=== PATIENT | female | born 1950 | race Caucasian/White ===

== ENCOUNTER → 2016-04-10 | Outpatient (CLI) | payer MEDICARE, OTHER | LOC: LAB.O 12:05 | PROVIDERS: ATTEND Nurse Practitioner Family | DX: Z86.711 Personal history of pulmonary embolism (principal) ==

== ENCOUNTER → 2016-05-01 | Outpatient (CLI) | payer MEDICARE, OTHER | END | disposition home or self-care (01) | LOC: LAB.O 14:33 | PROVIDERS: ATTEND Nurse Practitioner Family | DX: Z86.711 Personal history of pulmonary embolism (principal) ==

== ENCOUNTER → 2016-05-08 | Outpatient (CLI) | payer MEDICARE, OTHER | END | disposition home or self-care (01) | LOC: LAB.O 09:05 | PROVIDERS: ATTEND Nurse Practitioner Family | DX: Z86.711 Personal history of pulmonary embolism (principal) ==

== ENCOUNTER 2016-05-30 13:02 | Observation (INO) | payer MEDICARE, OTHER ==
[2016-05-30] MEDS ORDERED: SODIUM CHLORIDE 0.9% 1000ML 1,000 ML IVS ONE (13:35)
--- NOTE | 2016-05-30 13:57 | ED.PDOC ---
History of Present Illness - General Chief Complaint: Trauma Stated Complaint: fall x1 day ago Time Seen by Provider: 05/30/16 13:34 Source: patient, RN notes reviewed, Vital Signs reviewed, family - Exam Limitations: no limitations - History of Present Illness Initial Comments: Patient is a 65 y/o female who fell yesterday when she was putting up her ironing board. She hit her head. She woke early this AM with a severe headache , and she has had about 5 episodes of vomiting since 0200. Patient is currently on coumadin for a history of PE. She is very anxious. Her states that her speech has been not at clear as usual. Patient has had some visual blurriness. She has a history of back problems which is why she has been falling recently. She does use her walker at home. Timing/Duration: 24 hours, getting worse Severity: severe Improving Factors: nothing Worsening Factors: nothing Associated Symptoms: headaches, nausea/vomiting, weakness Allergies/Adverse Reactions: Allergies Ketorolac Tromethamine [From Toradol] Allergy (Verified 05/30/16 13:28) Hives shortness Penicillin G Allergy (Verified 05/30/16 13:28) Other welps Ondansetron [From Zofran] Adverse Reaction (Verified 05/30/16 13:28) Other Pt claims this causes her to "blister" Home Medications: Ambulatory Orders Alprazolam [Niravam] 2 mg PO QID PRN 07/16/15 Aspirin [Aspirin EC] 81 mg PO DAILY 07/16/15 Pantoprazole Sodium [Protonix] 40 mg PO DAILY 07/16/15 Warfarin Sodium 2.5 mg PO .TU,W,TH,SA,NINA 11/09/15 Warfarin Sodium 5 mg PO .M,F 11/09/15 Zolpidem Tartrate [Ambien] 10 mg PO BEDTIME 11/21/15 Buprenorphine [Butrans] 10 mcg TD WKLY 05/30/16 Haloperidol 0.5 mg PO BEDTIME PRN 05/30/16 Lisinopril 10 mg PO BEDTIME 05/30/16 tiZANidine [Zanaflex] 4 mg PO TID PRN 05/30/16 Review of Systems - Review of Systems Constitutional: States: weakness. Denies: chills, fever EENTM: States: blurred vision, nose congestion, throat pain Respiratory: States: no symptoms reported Cardiology: States: no symptoms reported. Denies: chest pain Gastrointestinal/Abdominal: States: abdominal pain, nausea, vomiting Genitourinary: States: no symptoms reported Musculoskeletal: States: back pain, joint pain, muscle pain, neck pain Skin: States: other - bruising Neurological: States: anxiety, headache, tingling, weakness Endocrine: States: no symptoms reported Hematologic/Lymphatic: States: blood clots, easy bleeding, easy bruising All other Systems: Reviewed and Negative Past Medical History (General) - Patient Medical History Hx Seizures: No Hx Stroke: No Hx Dementia: No Hx Asthma: No Hx of COPD: No Hx Cardiac Disorders: Yes - pacemaker Hx Congestive Heart Failure: No Hx Pacemaker: No Hx Hypertension: Yes Hx Thyroid Disease: No Hx Diabetes: No Hx Gastroesophageal Reflux: Yes Hx Renal Disease: No Hx Cancer: No Hx of HIV: No Hx Hepatitis C: No Hx MRSA: No MRSA Source:: Wound Surgical History: cholecystectomy, Hysterectomy - Vaccination History Hx Tetanus, Diphtheria Vaccination: No Hx Influenza Vaccination: No Hx Pneumococcal Vaccination: No - Social History Hx Tobacco Use: No Hx Chewing Tobacco Use: No Hx Alcohol Use: No Hx Substance Use: No Hx Substance Use Treatment: No Hx Depression: No Hx Physical Abuse: No Hx Emotional Abuse: No Hx Suspected Abuse: No - Activities of Daily Living Hospice Agency (if applicable):: None - Female History Patient is a Female of Child Bearing Age (10 -59 yrs old): No Patient : No Family Medical History - Family History Father Living Status: Cause of : copd Mother Living Status: Cause of : colon ca Son Name: mother Living Status: Age at (years of age): 54 Cause of : colon cancer Hx Family Asthma: No Hx Family Congestive Heart Failure: No Hx Family Hypertension: Yes Hx Family Stroke: Yes Hx Cardiac Disease: No Hx Family Diabetes: No Hx Family Cancer: Yes Hx Family;Other: Crohn's Physical Exam - Physical Exam General Appearance: Anxious, Obvious distress Eye Exam: bilateral normal Ears, Nose, Throat: hearing grossly normal, normal ENT inspection Neck: limited range of motion, tender lateral Respiratory: lungs clear, normal breath sounds, no respiratory distress, no accessory muscle use Cardiovascular/Chest: regular rate, rhythm, no edema, no gallop, no murmur Gastrointestinal/Abdominal: normal bowel sounds, soft, no organomegaly, tenderness - generalized Extremity: normal inspection, no pedal edema, no calf tenderness Neurologic: 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 II-XII nml as tested, alert, oriented x 3, depressed affect Skin Exam: warm/dry, other - ecchymosis to left arm Progress - Results/Orders Results/Orders: 05/30/16 05/30/16 05/30/16 13:04 13:30 14:46 Temperature 99.0 F Pulse Rate [ 92 H 78 pulse ox] Respiratory 20 20 20 Rate Blood Pressure 178/107 206/117 [Right Arm] O2 Sat by Pulse 96 99 Oximetry 05/30/16 13:34 URINALYSIS Stat Laboratory Results WBC 8.3 K/mm3 (4.8-10.8) 05/30/16 13:55 RBC 4.81 M/mm3 (4.20-5.40) 05/30/16 13:55 Hgb 10.1 gm/dL (12.0-16.0) L 05/30/16 13:55 Hct 32.9 % (36.0-47.0) L 05/30/16 13:55 MCV 68.4 fl (81.0-99.0) L 05/30/16 13:55 MCH 20.9 pg (27.0-31.0) L 05/30/16 13:55 MCHC 30.8 g/dL (33.0-37.0) L 05/30/16 13:55 RDW 20.1 % (11.5-14.5) H 05/30/16 13:55 Plt Count 279 K/mm3 (130-400) 05/30/16 13:55 MPV 7.7 fl (7.40-10.4) 05/30/16 13:55 Absolute Neuts (auto) 4.30 K/uL (1.8-6.8) 05/30/16 13:55 Absolute Lymphs (auto) 2.90 K/uL (1.0-3.4) 05/30/16 13:55 Absolute Monos (auto) 0.70 K/uL (0.2-0.8) 05/30/16 13:55 Absolute Eos (auto) 0.30 K/uL (0.0-0.4) 05/30/16 13:55 Absolute Basos (auto) 0.10 K/uL (0.0-0.1) 05/30/16 13:55 Neutrophils % 51.9 % (42.0-78.0) 05/30/16 13:55 Lymphocytes % 35.0 % (20.0-50.0) 05/30/16 13:55 Monocytes % 8.7 % (2.0-9.0) 05/30/16 13:55 Eosinophils % 3.1 % (1.0-5.0) 05/30/16 13:55 Basophils % 1.3 % (0.0-2.0) 05/30/16 13:55 RBC Morphology 2+aniso 2+hypochromia 2+target cells 3+microcytosis 05/30/16 13:55 RBC Morphology 2+aniso 2+hypochromia 2+target cells 3+microcytosis 05/30/16 13:55 RBC Morphology 2+aniso 2+hypochromia 2+target cells 3+microcytosis 05/30/16 13:55 RBC Morphology 2+aniso 2+hypochromia 2+target cells 3+microcytosis 05/30/16 13:55 PT 48.8 SECONDS (9.4-12.5) H* 05/30/16 13:55 INR 4.380 H* 05/30/16 13:55 PTT (SP) 62.6 SECONDS (25.1-36.5) H 05/30/16 13:55 Sodium 140 mmol/L (135-145) 05/30/16 13:55 Potassium 3.8 mmol/L (3.6-5.0) 05/30/16 13:55 Chloride 106 mmol/L (101-111) 05/30/16 13:55 Carbon Dioxide 26 mmol/L (21-31) 05/30/16 13:55 Anion Gap 11.8 (12-18) L 05/30/16 13:55 BUN 9 mg/dL (7-18) 05/30/16 13:55 Creatinine 0.62 mg/dL (0.6-1.3) 05/30/16 13:55 BUN/Creatinine Ratio 14.5 (10-20) 05/30/16 13:55 Random Glucose 107 mg/dL (70-105) H 05/30/16 13:55 Serum Osmolality 278.6 mOsm/L (275-295) 05/30/16 13:55 Calcium 8.5 mg/dL (8.4-10.2) 05/30/16 13:55 Total Bilirubin 0.6 mg/dL (0.2-1.0) 05/30/16 13:55 AST 43 IU/L (10-42) H 05/30/16 13:55 ALT 17 IU/L (10-60) 05/30/16 13:55 Alkaline Phosphatase 114 IU/L (42-121) 05/30/16 13:55 Serum Total Protein 7.7 gm/dL (6.4-8.2) 05/30/16 13:55 Albumin 3.9 g/dl (3.2-5.5) 05/30/16 13:55 Globulin 3.8 gm/dL (2.3-3.5) H 05/30/16 13:55 Albumin/Globulin Ratio 1.0 (1.1-1.9) L 05/30/16 13:55 - EKG/XRAY/CT CT: Head: No acute process CT Ordered: Yes CT Interpretation Call Back: No - Report sent Departure - Departure Clinical Impression: Anticoagulant long-term use, Elevated INR, HTN (hypertension), benign, Elevated blood pressure Closed head injury with concussion Qualifiers: Encounter type: initial encounter Loss of consciousness presence/duration: without LOC Qualifier Code: (S06.0X0A) Concussion without loss of consciousness , initial encounter Fall at home Qualifiers: Encounter type: initial encounter Qualifier Code: (W19.XXXA) Unspecified fall, initial encounter Headache Qualifiers: Headache type: post-traumatic Headache chronicity pattern: acute headache Nausea & vomiting Qualifiers: Vomiting type: unspecified Vomiting Intractability: non-intractable Qualifier Code: (R11.2) Nausea with vomiting, unspecified Disposition: Admit Patient Condition: Good Referrals: JANET GAMEZ IV, [facility] [Primary Care Provider] - 1-2 Weeks Home Medications: Ambulatory Orders Alprazolam [Niravam] 2 mg PO QID PRN 07/16/15 Aspirin [Aspirin EC] 81 mg PO DAILY 07/16/15 Pantoprazole Sodium [Protonix] 40 mg PO DAILY 07/16/15 Warfarin Sodium 2.5 mg PO .TU,W,TH,SA,NINA 11/09/15 Warfarin Sodium 5 mg PO .M,F 11/09/15 Zolpidem Tartrate [Ambien] 10 mg PO BEDTIME 11/21/15 Buprenorphine [Butrans] 10 mcg TD WKLY 05/30/16 Haloperidol 0.5 mg PO BEDTIME PRN 05/30/16 Lisinopril 10 mg PO BEDTIME 05/30/16 tiZANidine [Zanaflex] 4 mg PO TID PRN 05/30/16 Decision To Admit - Decistion To Admit Decision to Admit Reason: Accidental Injury Decision to Admit Date: 05/30/16 Decision to Admit Time: 15:30
--- NOTE | 2016-05-30 14:09 | CT ---
Study: CT of the Head. Indication: fall Technique: Axial CT images of the head were acquired without intravenous contrast. Comparison: None. Findings: No CT evidence of acute ischemia, acute hemorrhage, mass, mass effect, midline shift, or extra-axial fluid collection. Ventricles are normal in configuration without hydrocephalus. Brain parenchyma demonstrates a normal appearance for patient age. Paranasal sinuses are adequately aerated. Mastoid air cells are adequately aerated. Osseous structures and soft tissues are unremarkable. Impression: 1. No CT evidence of acute intracranial abnormality. Electronically signed by: Cas Man MD 05/30/2016 2:08 PM CDT
[2016-05-30] MEDS ORDERED: PROMETHAZINE HCL INJ 12.5 MG in SODIUM CHLORIDE 0.9% 50ML 50 ML IVPB ONE (14:22)
[2016-05-30] MEDS ORDERED: MORPHINE SULFATE INJ 10 MG/ML VIAL IV ONE ×3 (14:23→18:07)
[2016-05-30] MEDS ORDERED: PROMETHAZINE HCL 25 MG TAB PO ONE (14:26)
[2016-05-30] MEDS ORDERED: BUTORPHANOL TARTRATE 2 MG/ML VIAL IV ONE (15:35)
--- NOTE | 2016-05-30 16:51 | HP ---
SUPERVISING PHYSICIAN: Serafin Merchant M.D. CHIEF COMPLAINT: Trauma to the head. HISTORY OF PRESENT ILLNESS: This is a 65 year-old female patient who was at home yesterday and she fell after she was putting up her ironing board. She hit the left side of the posterior part of her head. Her was at the [facility] in [place] and she was home alone. When he came home from his appointment, he said that she was in quite a bit of pain but she refused to go to the hospital at that time. There was a question as to whether she lost consciousness or not. Actually one time she said she did lose consciousness and then she said she did not. She went to bed last night and woke up this morning about 3:00 AM. She was vomiting and had a headache. Then later this morning she actually decided that she would come to the Emergency Room because the vomiting continued as well as the headache. It is to be noted that she is on chronic pain medicines and she is on Butrans transdermal patch. She usually changes that on Tuesdays. It was not changed this day due to her being out of town as well as her condition after her fall. In the Emergency Room, a CT of her head was done and the CT showed no CT evidence of acute intracranial abnormality. Her lab had a WBC of 8.3, hemoglobin 10.1, hematocrit 32.9, platelets 279. PT 48.8 with INR 4.38, PTT 62.6. Sodium 140, potassium 3.8, chloride 106, carbon dioxide 26, anion gap 11.8, BUN 9, creatinine 0.62, glucose 107. AST 43. Urine was basically within normal limits. She continued to have quite a bit of pain in the Emergency Room. She received some Stadol and morphine as well as she received some Phenergan p.o. for the nausea. She did vomit one time in the Emergency Room right before she was brought to the floor. In the Emergency Room, she also had a blood pressure that was as high as 206/117, it came down to 183/95. She was not given any antihypertensive in the Emergency Room. She was given pain medications only. She will be placed in Observation to monitor her neurologic symptoms as well as to monitor her increased INR, and to control her pain. PAST MEDICAL HISTORY: 1. Hypertension. 2. Diabetes mellitus type 2. 3. Gastroesophageal reflux disease. 4. Ulcerative colitis. 5. History of chest pains in the past with an angiography performed in 2011 and 2012 without any significant findings. 6. History of hiatal hernia. 7. 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 8. Anxiety. 9. History of pulmonary embolism in the left lung. 10. Bipolar disorder. 11. Hypercholesterolemia. 12. Insomnia. 13. History of nausea and vomiting due to the Smith's esophagitis. PAST SURGICAL HISTORY: 1. Cholecystectomy. 2. Hysterectomy. 3. Angiography in [address] Thompson and in [address] Smart with no interventions. 4. Pacemaker implantation. 5. Appendectomy. 6. Recent full extraction of teeth for dentures. CURRENT MEDICATIONS: Per the EMR and awaiting verification. ALLERGIES: TORADOL, PENICILLIN AND ZOFRAN. FAMILY HISTORY: Positive for colon cancer, Crohn's disease, chronic obstructive pulmonary disease and kidney failure from metastatic cancer. SOCIAL HISTORY: She is . She denies any tobacco, ETOH or illicit drug use. CODE STATUS: FULL CODE. REVIEW OF SYSTEMS: GENERAL: Denies fatigue, fever or chills. HEENT: Complains of the head trauma stated in the History of Present Illness. Denies any sinus symptoms, vision changes or sore throat. RESPIRATORY: Denies shortness of breath, wheezing or cough. CARDIAC: Denies chest pain or palpitations. GASTROINTESTINAL: Complains of nausea and vomiting. Denies any abdominal pain, constipation or diarrhea. NEUROLOGIC: Complains of headache, some dizziness. Denies seizures. GENITOURINARY: Denies hematuria, nocturia or dysuria. MUSCULOSKELETAL: Denies myalgias or arthralgias. PHYSICAL EXAMINATION: VITAL SIGNS: Temperature 98.4, heart rate 82, blood pressure when she came to the floor was 186/82, it is now 178/96 after 0.1 of Clonidine, respiratory rate 22, O2 sat 95% on room air. GENERAL: This is a 65 year-old female patient who is lying in her hospital bed. HEENT: Normocephalic. Pupils are equal and reactive. Oropharynx is clear. She does have a slight hematoma to her left occipital scalp area. There is no laceration. NECK: Supple without mass. There is no jugular venous distention. CHEST: Clear to auscultation bilaterally. CARDIOVASCULAR: Regular rate and rhythm. ABDOMEN: Soft, nondistended, non-tender. Bowel sounds are positive. EXTREMITIES: No cyanosis, clubbing or edema. NEUROLOGIC: She is awake, alert and oriented times three, but she is somewhat anxious. LABORATORY AND RADIOLOGY: Labs and films are as per the History of Present Illness. ASSESSMENT: 1. Post concussion syndrome status post same level fall at home. 2. Elevated INR of 4.38 presently on Coumadin therapy. 3. Hypertensive crisis. 4. Chronic pain syndrome being seen by Dr. Ibarra in [place] pain [facility]. She is on Butrans transdermal patch and was due to be changed on Saturday, and was not changed. 5. Diabetes mellitus type 2. 6. Gastroesophageal reflux disease. 7. Chronic anxiety. 8. Ulcerative colitis. 9. Smith's esophagitis. 10. History of pulmonary embolism. 11. Bipolar disorder. PLAN: We will place the patient in Observation. We will monitor her neurologic symptoms overnight. I have changed her Butrans transdermal patch out today. She is going to get Phenergan suppositories for her nausea. There was a question if she was on too much medication, so I have held her Haldol as well as her muscle relaxers and started a lower dose of her Xanax as she was on 2 mg 4 times a day as needed, and I have decreased that to 1 mg 4 times a day as needed. Will recheck her INR in the morning as well as routine labs. I have called [facility] Goel about her admission. Will continue to monitor her closely and followup as needed. Dr. Merchant is the collaborating physician and available for consultation. #[id number] [facility]
[2016-05-30] MEDS ORDERED: cloNIDine HCL 0.1 MG TAB PO ONE (18:10)
[2016-05-30] MEDS ORDERED: ALPRAZolam 0.5 MG TAB PO SCH (18:30)
[2016-05-30] MEDS ORDERED: IV SET AND CAP CHANGE INJ INJ SCH (18:30)
[2016-05-30] MEDS ORDERED: DEXTROSE 50% 25 GM/50 ML SYG IV PRN (18:33)
[2016-05-30] MEDS ORDERED: GLUCAGON INJ 1 MG VIAL SUBCU PRN (18:33)
[2016-05-30] MEDS ORDERED: PROMETHAZINE SUPP 12.5 MG SUP PR ONE (18:47)
[2016-05-30] MEDS ORDERED: PROMETHAZINE SUPP 12.5 MG SUP PR PRN (18:50)
[2016-05-30] MEDS ORDERED: PANTOPRAZOLE SODIUM IV 40 MG VIAL IV SCH (19:00)
[2016-05-30] MEDS ORDERED: BUPRENORPHINE 10 MCG TD SCH (19:15)
[2016-05-30] MEDS ORDERED: ALPRAZolam 0.5 MG TAB PO PRN (19:24)
[2016-05-30] MEDS ORDERED: SODIUM CHLORIDE 0.9% 10 ML VIAL ONE (21:01)
[2016-05-30] MEDS: SODIUM CHLORIDE 0.9% (FLUSH) 10 ML SYG IV PRN (21:06)
[2016-05-30] MEDS: LISINOPRIL 10 MG TAB PO SCH (21:08)
[2016-05-30] MEDS: MORPHINE SULFATE INJ 10 MG/ML VIAL IV PRN (21:08)
[2016-05-30] MEDS: PROMETHAZINE SUPP 12.5 MG SUP PR PRN (21:16)
[2016-05-30] MEDS: INSULIN LISPRO 100 UNITS/ML PEN SUBCU SCH (21:30)
[2016-05-31] MEDS ORDERED: SODIUM CHLORIDE 0.9% 10 ML VIAL ONE ×2 (02:46→05:17)
[2016-05-31] MEDS: SODIUM CHLORIDE 0.9% (FLUSH) 10 ML SYG IV PRN ×3 (02:49→15:58)
[2016-05-31] MEDS: MORPHINE SULFATE INJ 10 MG/ML VIAL IV PRN ×4 (02:50→13:17)
[2016-05-31] MEDS: PROMETHAZINE SUPP 12.5 MG SUP PR PRN ×3 (05:41→20:12)
[2016-05-31] MEDS: INSULIN LISPRO 100 UNITS/ML PEN SUBCU SCH ×4 (07:22→21:14)
[2016-05-31] MEDS ORDERED: SODIUM CHLORIDE 0.9% 10 ML VIAL IV PRN (11:20)
[2016-05-31] MEDS ORDERED: WARFARIN SODIUM 2 MG TAB PO ONE (12:00)
[2016-05-31] MEDS ORDERED: WARFARIN SODIUM 2 MG TAB ONE (13:12)
--- NOTE | 2016-05-31 13:57 | PN ---
SUPERVISING PHYSICIAN: Serafin Merchant MD DATE: 05/31/16 SUBJECTIVE: The patient is sitting up in her chair in her room. She continues complaints of pain all over as well as a headache. She denies any chest pain, shortness of breath. She did walk in the hallways and she said she was very weak with walking. Physical therapy was with her at that time. She also discussed that her pain medication, Butrans patch, was not going to be available until tomorrow because the pharmacy did not have it. OBJECTIVE: VITAL SIGNS: Afebrile. Heart rate 96. Blood pressure 115/73. Respiratory rate 18. O2 saturation 91% on room air. LUNGS: Clear to auscultation bilaterally. CARDIAC: Regular rate and rhythm. ABDOMEN: Soft, nontender, nondistended. Bowel sounds are positive. EXTREMITIES: No cyanosis, clubbing or edema. NEUROLOGIC: Awake, alert and oriented times three. Pupils are equal and reactive bilaterally. LABORATORY: Hemoglobin 10.3, hematocrit 33.5. INR 2.72 today. Blood sugar is 112, but otherwise her chemistries are basically within normal limits. All other labs and films have been reviewed via the EMR. ASSESSMENT: 1. Post concussion syndrome status post same level fall at home. 2. Elevated INR of 4.38 on admission, now 2.72. 3. Hypertensive crisis, resolved. 4. Chronic pain syndrome being seen by Dr. Ibarra in [place] pain [facility]. She is on Butrans transdermal patch and was due to be changed on Saturday, and was not changed. 5. Diabetes mellitus type 2. 6. Gastroesophageal reflux disease. 7. Chronic anxiety. 8. Ulcerative colitis. 9. Smith's esophagitis. 10. History of pulmonary embolism. 11. Bipolar disorder. PLAN: We will continue present supportive care. Her did not have the Butrans patch, so they were not able to apply it yesterday. He did not have a refill on it and the pharmacy was out of it, so he will pick those up in the morning and we will apply it at that time. I spoke with Dr. Ibarra's office and they agreed we could continue with the morphine as ordered. I have also had physical therapy work with her to make sure she is safe to go home as well as I have ordered ambulatory study. We will continue to monitor her closely including neuro checks. Hopefully we can get her pain patch on tomorrow and we can discharge her home at that time with close followup with Scooter Goel and her pain specialist. It probably would be advisable to decrease her Xanax at some point as she has 2 mg 4 times daily as needed and she has not taking it since she has been in the hospital and I decreased it 1 mg 4 times daily as needed. I also will check her INR in the morning. I have given her 2 mg of Coumadin today and hopefully we can restart her on her home dosing tomorrow. Dr. Merchant is the collaborating physician and available for consultation. #[id number] [facility]
[2016-05-31] MEDS ORDERED: HYDROmorphone HCL INJ 2 MG/ML VIAL IV ONE (15:30)
[2016-05-31] MEDS: HYDROmorphone HCL INJ 2 MG/ML VIAL IV PRN (20:12)
[2016-05-31] MEDS ORDERED: PANTOPRAZOLE SODIUM IV 40 MG VIAL IV SCH (21:00)
[2016-05-31] MEDS: SODIUM CHLORIDE 0.9% (FLUSH) 10 ML SYG IV SCH (21:13)
[2016-05-31] MEDS: LISINOPRIL 10 MG TAB PO SCH (21:13)
[2016-06-01] MEDS: HYDROmorphone HCL INJ 2 MG/ML VIAL IV PRN ×3 (00:14→08:53)
[2016-06-01] MEDS: PROMETHAZINE SUPP 12.5 MG SUP PR PRN ×2 (00:15→04:35)
[2016-06-01] MEDS: SODIUM CHLORIDE 0.9% (FLUSH) 10 ML SYG IV PRN (04:34)
[2016-06-01 06:07] VITALS: TEMP 97.6
[2016-06-01] MEDS: INSULIN LISPRO 100 UNITS/ML PEN SUBCU SCH ×2 (07:22→11:47)
[2016-06-01] MEDS: SODIUM CHLORIDE 0.9% (FLUSH) 10 ML SYG IV SCH (08:57)
[2016-06-01] MEDS ORDERED: PROMETHAZINE HCL 25 MG TAB PO PRN (11:29)
--- NOTE | 2016-06-01 12:14 | CT ---
EXAM DESCRIPTION: Head w/wo Contrast CLINICAL HISTORY: Trauma, fall COMPARISON: May 30, 2016. TECHNIQUE: Multiple axial images of the head prior to and after the administration of contrast. FINDINGS: Mild involutional changes noted. No considerable periventricular white matter disease. Ventricles are midline and unremarkable. Physiologic calcifications noted within bilateral basal ganglia. The basilar cisterns are widely patent. Atherosclerotic disease noted. Post contrasted images demonstrate normal enhancement of the intracranial vasculature and dural venous sinuses. No evidence of a mass on today's study. No abnormal extra-axial fluid on today's study. The orbits and globes are grossly unremarkable. The calvarium is intact. IMPRESSION: 1. No evidence of traumatic injury on today's pre and post contrasted CT of the head. When compared to the prior study these findings are unchanged Electronically signed by: Hema Schneider MD 06/01/2016 12:13 PM CDT
[2016-06-01 12:24] VITALS: BP 134/81; O2SAT 95
[2016-06-01] MEDS ORDERED: WARFARIN SODIUM 2 MG TAB PO ONE (12:28)
[2016-06-01] MEDS ORDERED: BUPRENORPHINE 7.5 MCG TD SCH (14:04)
[2016-06-01] MEDS ORDERED: WARFARIN SODIUM 2 MG TAB ONE (14:12)
--- NOTE | 2016-06-01 18:40 | DS ---
SUPERVISING PHYSICIAN: Serafin Merchant M.D. DISCHARGE DIAGNOSIS: 1. Post concussion syndrome status post same level fall at home. 2. Elevated INR at 4.38 on admission now 2.4. 3. Hypertensive crisis that has resolved. 4. Chronic pain syndrome being seen by Dr. Ibarra in [facility]. She is on Butrans transdermal patch. The dosing has been decreased now from 10 mcg to 7.5. 5. Diabetes mellitus type 2. 6. Self care deficit. 7. History of frequent falls. 8. Chronic anxiety. 9. Gastroesophageal reflux disease. 10. Ulcerative colitis. 11. Smith's esophagitis. 12. History of pulmonary embolism. 13. Bipolar disorder. HISTORY OF PRESENT ILLNESS: This is a 65 year-old female patient who was at home on the day prior to her admission. She fell after she was putting up her ironing board. She hit the left side of the posterior portion of her head. Her was at the [facility] in [place] and she was home alone. When he came home from his appointment, he said that she was in quite a bit of pain but she refused to go to the hospital at that time. There was a question as to whether she lost consciousness or not. She went to bed that night and woke up at about 3:00 AM on the date of admission, and she was vomiting and had a headache. Later that morning, she decided that she would come to the Emergency Room because the vomiting continued as well as the headache. It is to be noted that she is on chronic pain medication and she is on Butrans transdermal patch. She usually changes it on Tuesdays. Her previous dosage was [address] Ibarra in [place] decreased it to 7.5 because of her history of falls. Because she fell and because her was worried about her, and he had not picked up the medication, she did not get her Butrans patch changed on that Saturday. In the Emergency Room, a CT of her head was done and per radiology interpretation the CT showed no CT evidence of acute intracranial abnormality. Her lab showed WBC of 8.3, hemoglobin 10.1, hematocrit 32.9, platelets 279. PT 48.8 and INR 4.38 with PTT 62.6. Sodium 140, potassium 3.8, chloride 106, carbon dioxide 26, anion gap 11.8, BUN 9, creatinine 0.62, glucose 107. AST 43. Urine was basically within normal limits. She continues to have quite a bit of pain in the Emergency Room. She received some Stadol and morphine as well as some Phenergan p.o. for the nausea. She did vomit one time in the Emergency Room right before she was brought to the floor. In the Emergency Room, she also had a blood pressure that was as high as 206/117. It came down to 183/95 before she was brought to the floor. She was not given any antihypertensive in the Emergency Room. She was placed in Observation to monitor neurologic symptoms as well as to monitor her increased INR and to control pain. HOSPITAL COURSE: Our hospital does not carry Butrans transdermal patches, so the was instructed to bring her home medications in. He had not gotten her new prescription. I called Dr. Ibarra's office and they verified that he had decreased it to 7.5 mcg. Donya was out of the patch and so initially she was given morphine, and then we switched her to Dilaudid as it helped control her pain. She did have a small hematoma on the left posterior portion of her head. Her Coumadin was held the first night and her INR the next morning was 2.72. She was given 2 mg of Coumadin and her INR this morning is 2.64. She continued complaints of nausea and pain. Her finally got her Butrans patch today. This afternoon the Butrans patch was placed. She walked with Physical Therapy several times and they deemed her safe to go home. I discontinued her Haldol while she was in the hospital as well as I decreased her Xanax from 2 mg q.i.d. to 1 mg q.i.d. p.r.n. She complained of chest pain overnight and 2 sets of cardiac enzymes were done that were negative. She refused the third set. She also continued complaints of severe headache, so a subsequent head CT was done that per radiology interpretation showed no evidence of traumatic injury on today's pre and post contrasted CT of the head. When compared to prior study, these findings are unchanged. She was unable to have an MRI due to her pacemaker placement. At this point, her pain is controlled and she will have close followup with her primary care provider, Scooter Goel. I spoke with Scooter Goel at length and we discussed her case. She will see him on June 05 at 1:00 PM. DISCHARGE PLAN: The patient will be discharged home. She is to resume her previous activity which she utilized a walker. Initially I had tried to get her Home Health as she told me she had not had it, but after investigation she had fired [employer] several times. [facility] had attempted at some point to put her on their services, but they were unable to get in touch with her because she was not at home when they were setting up her appointments. PT said she ambulated with her walker without problems. She also was observed by several nurses that she walked to the desk 3 times prior to discharge with no assistance, even her walker, without any problems. The Butrans patch that she does have is the lower dose of 7.5 mcg. I have also instructed her that her Xanax should be lowered to 1 mg 4 times a day as needed , but she has not used any of those in the hospital. Her Haldol was not resumed in the hospital. I discontinued her muscle relaxers. She is to return to the hospital or followup with Scooter Goel if any further complications. She will be discharged home on 2 mg of Coumadin daily. She needs an INR when she sees Scooter Goel. DISCHARGE MEDICATIONS: 1. Pantoprazole. 2. Aspirin. 3. Zolpidem. 4. Warfarin. 5. Butrans 7.5 mcg transdermally. 6. Lisinopril. 7. Xanax at the lower dose of 1 mg every 6 hours as needed. 8. Promethazine 12.5 mg every 6 hours as needed. 9. Haldol. Dr. Merchant is the collaborating physician and available for consultation. #[id number] [facility]
== END 2016-06-01 15:20 | disposition home or self-care (01) ==
LOC: ER 13:02 → MS 16:50
PROVIDERS: ADMIT Nurse Practitioner Acute Care; ATTEND Nurse Practitioner Acute Care
DX: F07.81 Postconcussional syndrome (principal); R79.1 Abnormal coagulation profile; I16.9 Hypertensive crisis, unspecified; I10 Essential (primary) hypertension; G89.4 Chronic pain syndrome; E11.9 Type 2 diabetes mellitus without complications; F41.9 Anxiety disorder, unspecified; K21.9 Gastro-esophageal reflux disease without esophagitis; K51.90 Ulcerative colitis, unspecified, without complications; K22.70 Barrett's esophagus without dysplasia; F31.9 Bipolar disorder, unspecified; R11.2 Nausea with vomiting, unspecified; E78.00 Pure hypercholesterolemia, unspecified; G47.00 Insomnia, unspecified; W18.39XA Other fall on same level, initial encounter; Z91.81 History of falling; Y93.E4 Activity, ironing; Y92.009 Unspecified place in unspecified non-institutional (private) residence as the place of occurrence of the external cause; Y99.8 Other external cause status; Z86.711 Personal history of pulmonary embolism; Z79.01 Long term (current) use of anticoagulants; Z79.82 Long term (current) use of aspirin; Z79.899 Other long term (current) drug therapy; Z88.0 Allergy status to penicillin; Z88.6 Allergy status to analgesic agent; Z88.8 Allergy status to other drugs, medicaments and biological substances; Z95.0 Presence of cardiac pacemaker; Z90.49 Acquired absence of other specified parts of digestive tract; Z90.710 Acquired absence of both cervix and uterus; Z80.0 Family history of malignant neoplasm of digestive organs; Z83.79 Family history of other diseases of the digestive system; Z82.5 Family history of asthma and other chronic lower respiratory diseases; Z84.1 Family history of disorders of kidney and ureter; Z80.51 Family history of malignant neoplasm of kidney
CPT/HCPCS: 36415 ×3; 36416 ×4; 70450; 70470; 80048; 80053; 81001; 82550 ×2; 82553 ×2; 82948 ×7; 84484 ×2; 85025 ×2; 85610 ×3; 85730; 93005 ×2; 94760 ×11; 96361; 96374; 96375 ×2; 96376 ×4; 97116 ×3; 97161; 99284; G0378; G8978; G8979; J0595; J1170 ×5; J2270 ×8; J7030; J8498 ×6; Q0169

== ENCOUNTER 2016-07-03 17:07 | Observation (INO) | payer MEDICARE, OTHER ==
[2016-07-03] MEDS ORDERED: ASPIRIN TABLET 325 MG TAB PO ONE (17:29)
--- NOTE | 2016-07-03 17:35 | ED.PDOC ---
History of Present Illness - General Source: patient, family Exam Limitations: clinical condition - History of Present Illness Initial Comments: the patient is a 65-year-old female presenting to the emergency room secondary to acute onset of chest pain and shortness of breath while sweeping today approximately 1-2 hours prior to arrival. The patient has not had a productive sputum. She has not had any fevers. She is currently being treated for generalized chronic pain and was recently increased from 300 mg 3 times a day to 900 mg 3 times a day of Neurontin. Chest pain is squeezing in nature according to her. It is difficult to get a history from the patient as she is crying and sobbing. Most of the history comes from the . She does have a history of severe anxiety and she is frequently seen at the emergency room for multiple complaints. She apparently had a catheterization done approximately 3 years ago that was essentially negative. No palpitations. No syncope. No altered mental status other than being quite dysphoric currently. Timing/Duration: 1-3 hours Severity: moderate Improving Factors: nothing Worsening Factors: nothing Associated Symptoms: chest pain, shortness of breath <Jose Brown - Last Filed: 07/03/16 18:27> - History of Present Illness Initial Comments: Of note, Patient does have a history of PE and was taken off her Coumadin 2 weeks ago because of frequent falls. <Cherie Cerrato - Last Filed: 07/03/16 22:34> - General Chief Complaint: Chest Pain/[place] Time Seen by Provider: 07/03/16 17:13 - History of Present Illness Allergies/Adverse Reactions: Allergies Ketorolac Tromethamine [From Toradol] Allergy (Verified 07/03/16 18:03) Hives shortness Penicillin G Allergy (Verified 07/03/16 18:03) Other welps Ondansetron [From Zofran] Adverse Reaction (Verified 07/03/16 18:03) Other Pt claims this causes her to "blister" Home Medications: Ambulatory Orders Aspirin [Aspirin EC] 81 mg PO DAILY 07/16/15 Pantoprazole Sodium [Protonix] 40 mg PO DAILY 07/16/15 Zolpidem Tartrate [Ambien] 10 mg PO BEDTIME 11/21/15 Buprenorphine [Butrans] 7.5 mcg TD WKLY 05/30/16 Haloperidol 0.5 mg PO BEDTIME PRN 05/30/16 Lisinopril 10 mg PO BEDTIME 05/30/16 ALPRAZolam [Xanax] 1 mg PO Q6H PRN #0 tab 06/01/16 Gabapentin 900 mg PO TID 07/03/16 tiZANidine [Zanaflex] 4 mg PO Q8H 07/03/16 Review of Systems - Review of Systems Constitutional: States: malaise EENTM: States: no symptoms reported Respiratory: States: short of breath, wheezing Cardiology: States: chest pain Musculoskeletal: States: no symptoms reported Skin: States: no symptoms reported Neurological: States: anxiety, depressed, tremors Endocrine: States: no symptoms reported All other Systems: No Change from Baseline <Jose Brown - Last Filed: 07/03/16 18:27> Past Medical History (General) - Patient Medical History Hx Seizures: Yes Hx Stroke: No Hx Dementia: No Hx Asthma: No Hx of COPD: No Hx Cardiac Disorders: Yes - pacemaker Hx Congestive Heart Failure: No Hx Pacemaker: Yes Hx Hypertension: Yes Hx Thyroid Disease: No Hx Diabetes: Yes - type 2 Hx Gastroesophageal Reflux: Yes Hx Renal Disease: No Hx Cancer: No Hx of HIV: No Hx Hepatitis C: No Hx MRSA: No MRSA Source:: Wound - Vaccination History Hx Tetanus, Diphtheria Vaccination: No Hx Influenza Vaccination: No Hx Pneumococcal Vaccination: No - Social History Hx Tobacco Use: No Hx Chewing Tobacco Use: No Hx Alcohol Use: No Hx Substance Use: No Hx Substance Use Treatment: No Hx Depression: No Hx Physical Abuse: No Hx Emotional Abuse: No Hx Suspected Abuse: No - Female History Patient : No <Jose Brown - Last Filed: 07/03/16 18:27> Family Medical History - Family History Father Living Status: Cause of : copd Mother Living Status: Cause of : colon ca Son Name: mother Living Status: Age at (years of age): 54 Cause of : colon cancer Hx Family Asthma: No Hx Family Congestive Heart Failure: No Hx Family Hypertension: Yes Hx Family Stroke: Yes Hx Cardiac Disease: No Hx Family Diabetes: No Hx Family Cancer: Yes Hx Family;Other: Crohn's <Jose Brown - Last Filed: 07/03/16 18:27> Physical Exam - Physical Exam General Appearance: Alert, Anxious Eye Exam: bilateral normal Ears, Nose, Throat: hearing grossly normal, normal ENT inspection, normal pharynx Neck: non-tender, full range of motion, supple, normal inspection Respiratory: chest non-tender, lungs clear, normal breath sounds, no respiratory distress, no accessory muscle use Cardiovascular/Chest: normal peripheral pulses, regular rate, rhythm, no edema Peripheral Pulses: radial,right: 2+, radial,left: 2+, dorsalis pedis,right: 2+, dorsalis pedis,left: 2+, posterior tibialis,right: 2+, posterior tibialis,left: 2+ Gastrointestinal/Abdominal: non tender, soft - morbidly obese Rectal Exam: deferred Back Exam: normal inspection, no vertebral tenderness Extremity: normal range of motion, non-tender, normal inspection, no pedal edema , no calf tenderness, normal capillary refill Neurologic: alert, oriented x 3, depressed affect Skin Exam: normal color <Jose Brown L - Last Filed: 07/03/16 18:27> Progress - Results/Orders Results/Orders: Laboratory Tests 07/03/16 17:45 WBC 9.7 RBC 4.14 L Hgb 8.8 L Hct 29.2 L MCV 70.5 L MCH 21.2 L MCHC 30.2 L RDW 20.3 H Plt Count 228 MPV 8.6 Absolute Neuts (auto) 4.60 Absolute Lymphs (auto) 3.70 H Absolute Monos (auto) 0.70 Absolute Eos (auto) 0.40 Absolute Basos (auto) 0.30 H Neutrophils % 47.8 Lymphocytes % 38.2 Monocytes % 7.3 Eosinophils % 3.6 Basophils % 3.1 H PT 11.9 INR 1.050 PTT (SP) 23.8 L D-Dimer, Quantitative 389 H* Sodium 142 Potassium 3.6 Chloride 110 Carbon Dioxide 24 Anion Gap 11.6 L BUN 12 Creatinine 0.90 BUN/Creatinine Ratio 13.3 Random Glucose 136 H Serum Osmolality 285.0 Calcium 8.3 L Total Bilirubin 0.2 AST 28 ALT 14 Alkaline Phosphatase 141 H Creatine Kinase 84 CK-MB (CK-2) 2.0 CK-MB (CK-2) % Not Reportable Troponin I < 0.02 Serum Total Protein 7.0 Albumin 3.6 Globulin 3.4 Albumin/Globulin Ratio 1.1 EKG shows normal sinus rhythm at a rate of 69 bpm. Borderline QTC. No acute ST segment changes concerning for ischemia. [place] is grossly normal. Incomplete right bundle-branch block. EKG is consistent with EKG obtained one month ago. Chest x-ray shows no acute pathology. <Jose Brown L - Last Filed: 07/03/16 18:27> - Results/Orders Results/Orders: 07/03/16 07/03/16 07/03/16 17:33 18:30 19:41 Temperature 98.9 F Pulse Rate [ 70 68 73 Apical] Respiratory 22 22 22 Rate Blood Pressure 110/76 112/72 155/78 [Right Arm] O2 Sat by Pulse 99 98 100 Oximetry 07/03/16 07/03/16 20:21 21:00 Temperature Pulse Rate [ 76 81 Apical] Respiratory 18 18 Rate Blood Pressure 152/74 149/64 [Right Arm] O2 Sat by Pulse 100 100 Oximetry 07/03/16 17:28 Telemetry .CONTINUOUS 07/03/16 17:29 UA [URINALYSIS] Stat 07/03/16 17:30 EKG STAT 07/03/16 22:30 LORazepam INJ [Ativan Inj] 0.5 mg IV ONCE ONE 07/03/16 22:31 Gabapentin [Neurontin] 600 mg PO ONCE ONE 07/04/16 09:00 Oxygen Daily Laboratory Results WBC 9.7 K/mm3 (4.8-10.8) 07/03/16 17:45 RBC 4.14 M/mm3 (4.20-5.40) L 07/03/16 17:45 Hgb 8.8 gm/dL (12.0-16.0) L 07/03/16 17:45 Hct 29.2 % (36.0-47.0) L 07/03/16 17:45 MCV 70.5 fl (81.0-99.0) L 07/03/16 17:45 MCH 21.2 pg (27.0-31.0) L 07/03/16 17:45 MCHC 30.2 g/dL (33.0-37.0) L 07/03/16 17:45 RDW 20.3 % (11.5-14.5) H 07/03/16 17:45 Plt Count 228 K/mm3 (130-400) 07/03/16 17:45 MPV 8.6 fl (7.40-10.4) 07/03/16 17:45 Absolute Neuts (auto) 4.60 K/uL (1.8-6.8) 07/03/16 17:45 Absolute Lymphs (auto) 3.70 K/uL (1.0-3.4) H 07/03/16 17:45 Absolute Monos (auto) 0.70 K/uL (0.2-0.8) 07/03/16 17:45 Absolute Eos (auto) 0.40 K/uL (0.0-0.4) 07/03/16 17:45 Absolute Basos (auto) 0.30 K/uL (0.0-0.1) H 07/03/16 17:45 Neutrophils % 47.8 % (42.0-78.0) 07/03/16 17:45 Lymphocytes % 38.2 % (20.0-50.0) 07/03/16 17:45 Monocytes % 7.3 % (2.0-9.0) 07/03/16 17:45 Eosinophils % 3.6 % (1.0-5.0) 07/03/16 17:45 Basophils % 3.1 % (0.0-2.0) H 07/03/16 17:45 PT 11.9 SECONDS (9.4-12.5) 07/03/16 17:45 INR 1.050 07/03/16 17:45 PTT (SP) 23.8 SECONDS (25.1-36.5) L 07/03/16 17:45 D-Dimer, Quantitative 389 ng/mL (0-230) H* 07/03/16 17:45 Sodium 142 mmol/L (135-145) 07/03/16 17:45 Potassium 3.6 mmol/L (3.6-5.0) 07/03/16 17:45 Chloride 110 mmol/L (101-111) 07/03/16 17:45 Carbon Dioxide 24 mmol/L (21-31) 07/03/16 17:45 Anion Gap 11.6 (12-18) L 07/03/16 17:45 BUN 12 mg/dL (7-18) 07/03/16 17:45 Creatinine 0.90 mg/dL (0.6-1.3) 07/03/16 17:45 BUN/Creatinine Ratio 13.3 (10-20) 07/03/16 17:45 Random Glucose 136 mg/dL (70-105) H 07/03/16 17:45 Serum Osmolality 285.0 mOsm/L (275-295) 07/03/16 17:45 Calcium 8.3 mg/dL (8.4-10.2) L 07/03/16 17:45 Total Bilirubin 0.2 mg/dL (0.2-1.0) 07/03/16 17:45 AST 28 IU/L (10-42) 07/03/16 17:45 ALT 14 IU/L (10-60) 07/03/16 17:45 Alkaline Phosphatase 141 IU/L (42-121) H 07/03/16 17:45 Creatine Kinase 85 IU/L (26-140) 07/03/16 20:45 CK-MB (CK-2) 1.9 ng/mL (0.0-4.4) 07/03/16 20:45 CK-MB (CK-2) % Not Reportable 07/03/16 20:45 Troponin I < 0.02 ng/mL (0.01-0.05) 07/03/16 20:45 B-Natriuretic Peptide 165.0 pg/ml (0-100) H 07/03/16 17:45 Serum Total Protein 7.0 gm/dL (6.4-8.2) 07/03/16 17:45 Albumin 3.6 g/dl (3.2-5.5) 07/03/16 17:45 Globulin 3.4 gm/dL (2.3-3.5) 07/03/16 17:45 Albumin/Globulin Ratio 1.1 (1.1-1.9) 07/03/16 17:45 Stool Occult Blood Negative 07/03/16 21:56 - EKG/XRAY/CT XRAY: chest Xray Comments: No acute process CT: CTA chest - no evidence of PE <Cherie Cerrato - Last Filed: 07/03/16 22:34> Departure <Jose Brown - Last Filed: 07/03/16 18:27> - Departure Time of Disposition: 22:33 <Cherie Cerrato - Last Filed: 07/03/16 22:34> - Departure Clinical Impression: Shortness of breath Chest pain Qualifiers: Chest pain type: unspecified Qualifier Code: (R07.9) Chest pain, unspecified Anemia Qualifiers: Anemia type: unspecified type Qualifier Code: (D64.9) Anemia, unspecified Disposition: Admit Patient Home Medications: Ambulatory Orders Aspirin [Aspirin EC] 81 mg PO DAILY 07/16/15 Pantoprazole Sodium [Protonix] 40 mg PO DAILY 07/16/15 Zolpidem Tartrate [Ambien] 10 mg PO BEDTIME 11/21/15 Buprenorphine [Butrans] 7.5 mcg TD WKLY 05/30/16 Haloperidol 0.5 mg PO BEDTIME PRN 05/30/16 Lisinopril 10 mg PO BEDTIME 05/30/16 ALPRAZolam [Xanax] 1 mg PO Q6H PRN #0 tab 06/01/16 Gabapentin 900 mg PO TID 07/03/16 tiZANidine [Zanaflex] 4 mg PO Q8H 07/03/16 Decision To Admit - Decistion To Admit Decision to Admit Reason: Medical Nature Decision to Admit Date: 07/03/16 Decision to Admit Time: 22:30 <Cherie Cerrato - Last Filed: 07/03/16 22:34>
--- NOTE | 2016-07-03 18:17 | RAD ---
EXAM DESCRIPTION: Chest,2 Views CLINICAL HISTORY: 65 years Female chest pain shortness of breath. COMPARISON: 12/29/2015. FINDINGS: The cardiomediastinal silhouette appears unremarkable. Stable left cardiac pacemaker device and pacemaker leads. Mild tortuosity of the thoracic aorta. Mild elevation of the right hemidiaphragm. No consolidating infiltrates or pleural effusions. No pneumothorax. Cholecystectomy clips in the right upper quadrant. IMPRESSION: No acute abnormality is identified. Electronically signed by: Jose Angel Medrano MD 07/03/2016 6:15 PM CDT
--- NOTE | 2016-07-03 22:08 | CT ---
EXAM: CT CHEST ANGIOGRAPHY WITH IV CONTRAST HISTORY: elevated d-dimer COMPARISON: None Available TECHNIQUE: Contiguous axial images of the chest were obtained from the thoracic inlet to the level of the upper abdomen after the administration of intravenous contrast followed by reconstruction images. Volume rendering images were performed. This exam was performed according to our departmental dose-optimization program, which includes automated exposure control, adjustment of the mA and/or kV according to patient size and/or use of iterative reconstruction technique. FINDINGS: The aorta is of normal contour and tapering. There are pacer leads within the heart. Bandlike opacities within the lungs may represent scar versus subsegmental atelectasis. There is a 5 mm noncalcified nodular opacity in the right middle lung, image 28. There is no discrete filling defect within the pulmonary arterial system to suggest pulmonary emboli. There is no pericardial or pleural fluid collection. There is no parenchymal consolidation or pneumothorax. Decreased attenuation of the liver could be secondary to fatty infiltration. IMPRESSION: No CT evidence of acute pulmonary emboli. Bandlike opacities within the lungs may represent scar versus subsegmental atelectasis. Electronically signed by: Lawrence Wilson MD 07/03/2016 10:06 PM CDT
[2016-07-03] MEDS ORDERED: GABAPENTIN 300 MG CAP PO ONE (22:31)
[2016-07-03] MEDS ORDERED: HYDROcodone 5MG/APAP 325MG 1 EA TAB PO PRN (22:57)
[2016-07-03] MEDS ORDERED: SODIUM CHLORIDE 0.9% (FLUSH) 10 ML SYG IV PRN (22:57)
[2016-07-03] MEDS ORDERED: MAGNESIUM HYDROXIDE 30 ML UD PO PRN (22:57)
[2016-07-03] MEDS ORDERED: ONDANSETRON INJ 4 MG/2 ML VIAL IV PRN (22:57)
[2016-07-03] MEDS ORDERED: LEVALBUTEROL NEBS 1.25 MG/3 ML VIAL INH PRN (22:57)
[2016-07-03] MEDS ORDERED: IV SET AND CAP CHANGE INJ INJ SCH (23:00)
[2016-07-03] MEDS ORDERED: ALPRAZolam 0.5 MG TAB PO PRN (23:04)
[2016-07-03] MEDS ORDERED: ZOLPIDEM TARTRATE 5 MG TAB PO PRN (23:06)
[2016-07-03] MEDS ORDERED: KCL 20 MEQ/NS 1,000 ML IVS PRN (23:09)
[2016-07-03] MEDS ORDERED: tiZANidine 4 MG TAB PO SCH (23:30)
[2016-07-03] MEDS: POTASSIUM CHLORIDE 10 MEQ TAB PO SCH (23:31)
[2016-07-03] MEDS ORDERED: MORPHINE SULFATE INJ 10 MG/ML VIAL IV PRN (23:41)
[2016-07-04] MEDS ORDERED: MORPHINE SULFATE INJ 10 MG/ML VIAL IV ONE (02:58)
[2016-07-04] MEDS ORDERED: PROMETHAZINE HCL 25 MG TAB ONE ×2 (04:17→16:00)
[2016-07-04] MEDS: POTASSIUM CHLORIDE 10 MEQ TAB PO SCH (07:29)
[2016-07-04] MEDS ORDERED: LISINOPRIL 5 MG TAB PO ONE (07:46)
[2016-07-04] MEDS: METOPROLOL SUCCINATE XL 50 MG TAB PO SCH ×2 (08:41→09:33)
[2016-07-04] MEDS: IPRATROPIUM/ALBUTEROL 3 ML VIAL INH SCH ×3 (08:45→17:30)
[2016-07-04] MEDS ORDERED: PANTOPRAZOLE SODIUM TAB 40 MG PO SCH (09:00)
[2016-07-04] MEDS ORDERED: ASPIRIN EC 81 MG TAB PO SCH (09:00)
[2016-07-04] MEDS: GABAPENTIN 300 MG CAP PO SCH ×2 (09:31→14:57)
[2016-07-04] MEDS ORDERED: MORPHINE SULFATE INJ 10 MG/ML VIAL IV PRN (10:53)
[2016-07-04] MEDS: HYDROmorphone HCL INJ 2 MG/ML VIAL IV PRN ×2 (11:36→16:01)
[2016-07-04] MEDS ORDERED: METOPROLOL TARTRATE 25 MG TAB PO ONE (14:27)
--- NOTE | 2016-07-04 15:24 | SSS ---
DATE OF ADMISSION: 07/03/16 DATE OF DISCHARGE: 07/04/16 DISCHARGE DIAGNOSES: 1. Acute chest pain as well as associated back and extremity pain with no evidence of an acute underlying ischemic coronary disease contributing to her symptoms. 2. 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 3. Frequent falls, possibly related to excessive medications. 4. Chronic anxiety/depression. 5. Anemia state with microcytic/hypochromic presentation, possibly related to intermittent gastrointestinal blood loss, yet none noted on exam of one Hemoccult. 6. Hypertension, requiring ongoing adjustments of medications with ROBBIN inhibitors as well as beta blockers to assist with control, to be adjusted as needed. 7. Chronic pain state, receiving increasing Neurontin dosings possibly contributing to some of the malaise and dysfunctional state. 8. Diabetes mellitus, type 2. 9. Gastroesophageal reflux disease. 10. History of ulcerated colitis, now stable. 11. History of Smith's esophagitis, now stable. 12. History of pulmonary embolism in the past. 13. Pacemaker insertion about 3 years ago. 14. Possible fibromyalgia contributing to a pain state. HISTORY OF PRESENT ILLNESS: This 65-year-old, white female was placed in the hospital from the Emergency Room after she came in from home with associated chest discomfort and pressure with shortness of breath. She apparently has been falling at home and is followed closely by Mich Goel in the clinic and he stopped her Coumadin about 2 weeks ago because of the frequent falls and hitting of her head. In the Emergency Room, she was also found to be somewhat anemic with hemoglobin having dropped previously from 10.3 down to 8.8 with a guaiac negative, yet required ongoing followup. She has recently had a CT of the head after falling and hitting her head with no acute findings noted. Because of chronic pain and weakness on the right side of her body, she has been on increased Neurontin up to 900 mg 3 times a day, which may be contributing to some of her symptoms. In the Emergency Room, she had elevated D -dimer yet had a negative CT angiogram of the chest. This was performed since her history of a pulmonary emboli in the past. She has recently been on a medicine called Butrans, but this was stopped, according to the patient, because of significant skin reaction. Whether the patient is having some withdrawal is also to be determined. She is followed by Dr. Ibarra in the pain clinic in [place], phone number [phone]. She is also seen by Dr. Epstein, psychiatrist, at [phone]. She has also seen Dr. Roth, neurologist, . She is placed in the hospital because of her inability to receive even benefit from some fairly large doses of opioids and to continue the evaluation for possible underlying pathology contributing to her marked distress. It is of note that her daughter has recently with the patient having found her in the bathroom. She had had renal cell carcinoma before her . Her has recently undergone coronary artery bypass grafting and at least one or two of those grafts are now going to require re- approach in the future, possibly this summer. She also sees, as mentioned, Dr. Ibarra, for her pain issues. She was last seen on June 21, 2016, and there was no mention at that time of skin irritation from the Butrans patch. PAST MEDICAL HISTORY: 1. Multiple episodes of pain involving most parts of her body, especially the right side with associated weakness. 2. She has been falling recently. 3. Shortness of breath noted. 4. Chronic anxiety/depression. 5. Anemia. 6. Hypertension. 7. Diabetes mellitus, type 2. 8. Gastroesophageal reflux disease. 9. Ulcerative colitis. 10. Smith's esophagitis. 11. History of pulmonary embolism. 12. History of bipolar state. 13. History of pacemaker insertion. PAST SURGICAL HISTORY: 1. Cholecystectomy. 2. Hysterectomy. 3. Angiography in [address] Thompson and in [address] Smart with no interventions necessary. 4. Pacemaker implantation 3 years ago. 5. Appendectomy. 6. Recent full extraction of the teeth for denture placement. CURRENT MEDICATIONS: Please refer to nursing notes for a list of verified home medications. ALLERGIES: TORADOL, PENICILLIN, ZOFRAN. FAMILY HISTORY: Positive for coronary artery disease and cancer. SOCIAL HISTORY: She is . She does not smoke or drink alcoholic beverages. REVIEW OF SYSTEMS: GENERAL: No significant weight loss, fever or chills. HEENT: No significant hearing or visual disturbances. LUNGS: Significant shortness of breath noted. No significant cough. CARDIOVASCULAR: Chest pains and tightness of her chest with an attempt to rule out underlying ischemic coronary disease in progress. GASTROINTESTINAL: Decreased appetite. No noticeable blood in the stools. No diarrhea. GENITOURINARY: No dysuria. EXTREMITIES: Fairly well formed with decreased muscle tone evident. NEUROLOGIC: No focal neurologic deficits, though she is complaining of occasionally of some right sided numbness and weakness from the shoulder all the way down to the feet. PHYSICAL EXAMINATION: VITAL SIGNS: Afebrile. Pulse 98. Blood pressure 190/100, down to 184/96. Pulse oximetry 94% on room air. Weight 90.7 kg. GENERAL: The patient is in acute distress initially, crying and complaining of pain all over her body. Even when given morphine up to 4 mg IV, she states that her pain is not relieved. Most of the discomfort appears to be from a state of extreme agitation and anxiety. Even the patient admits that anxiety is a major component of her symptoms. HEENT: Unremarkable. LUNGS: Diminished breath sounds with a few rhonchi, more prominent in the left base than the right. CARDIOVASCULAR: Heart tones are regular without any significant gallops. ABDOMEN: Slightly tender in the epigastric region. No organomegaly or masses noted. EXTREMITIES: Well-formed with diminished muscle tone. NEUROLOGIC: Moving all extremities. No focal neurological deficits at this time. The patient is otherwise awake and alert, but in marked emotional distress with frequent crying because of her distress. LABORATORY: White count 9,900, hemoglobin up from 8.8 to 9.4, indices show microcytic/hypochromic presentation. Platelets are normal. Neutrophils 50%. INR 1.05. D-dimer slightly elevated at 389. Chemistries show potassium 3.8, BUN 13, creatinine 0.7, glucose 105, calcium 8.1. Cardiac enzymes within normal limits with troponin 0 on three different determinations. Beta natriuretic peptide 165. C-reactive protein is 0. Urinalysis generally clean. Stool guaiac negative on one occasion. No cultures obtained. RADIOLOGY: Chest CT angiogram showed no evidence of pulmonary emboli with some baseline chronic changes, possibly subsegmental atelectasis. HOSPITAL COURSE: The patient was in extreme distress with pain, crying, and difficult to calm down during the night. Very little sleep was noted even with analgesic assistance. The patient was significantly improved after a trial of a dose of Dilaudid IV. The patient's arrived and this also helped her to feel a little more relaxed. Her ability to function at home has been minimized and with her frequent falling, she is potentially a danger to herself at this time. Her condition was discussed with Dr. Ibarra in the pain clinic, , and he feels that her pain is of a nonspecific nature and no specific surgical intervention indicated at this time. He suggests to continue the analgesics. As possible, he wishes to be able to stop all opioids, which are not contributing and, in fact, may be worsening some of her symptom complex. Dr. Epstein, psychiatrist, , was called and he agrees that significant psychiatric intervention may be required to allow the patient to be able to continue with ongoing home care. He is willing to admit her to [facility] and arrangements are being made to have her admitted to the geriatric floor because of her shakiness upon ambulation and her tendency to fall. Specific and focused treatment for the bipolar may assist her with some of her decision making choices. It is of note that in November of 2015, she was found at home to be poorly responsive and EMS was called. This information comes after direct conversation with the ER nurse who cared for the patient. EMS found 3 finasteride patches in her mouth and these were removed with gloved finger and placed in a sandwich bag and brought to the Emergency Room. She steadily showed some improvement and then was discharged home. After her discharge, she called back and per her phone conversation with this ER nurse, an incident report was made where the patient requested that the details of her being found with Duragesic patches in her mouth be removed from the record. She accused EMS of "lying" and did not want that particular aspect of her medical history to be preserved in her medical record. Of concern is this history of medication and analgesic abuse possibly contributed to by an unstable psychiatric history with bipolar incidents. She specifically could benefit by intensive inpatient psychiatric care and intervention. [facility] has been notified, , extension [phone], for admissions. Fax number [phone] at [facility]. After acceptance, she will be transferred there for specific care under Dr. Jc Epstein's psychiatric service. She will continue with ongoing care with Dr. Ibarra in the pain clinic and with Dr. Roth, neurologist, in [place], [place]. Her condition is discussed at length with the who is most helpful and who has good insight into the general problems. The patient initially was willing to go to [facility], but wanted to go several days from now so that she could pay attention to her . He stated that he is doing fine and has no need for office visit or intervention and wants at this time to pay attention to her needs. The final decision to go to [facility] is to be made shortly after acceptance onto the psychiatric service. #[id number] [facility]STER[facility]inda
[2016-07-04] MEDS ORDERED: PROMETHAZINE HCL 25 MG TAB PO PRN (15:58)
[2016-07-04 18:05] VITALS: BP 166/86; TEMP 98.5; O2SAT 90
[2016-07-04] MEDS ORDERED: LISINOPRIL 10 MG TAB PO SCH (21:00)
[2016-07-05] MEDS ORDERED: PANTOPRAZOLE SODIUM TAB 40 MG PO SCH (06:30)
[2016-07-10] MEDS ORDERED: BUPRENORPHINE 7.5 MCG TD SCH (09:00)
== END 2016-07-04 18:33 ==
LOC: ER 17:07 → MS 22:54
PROVIDERS: ADMIT Emergency Medicine; ATTEND Emergency Medicine
DX: R07.89 Other chest pain (principal); R06.02 Shortness of breath; F31.89 Other bipolar disorder; F55.8 Abuse of other non-psychoactive substances; F41.9 Anxiety disorder, unspecified; R29.6 Repeated falls; D64.9 Anemia, unspecified; I10 Essential (primary) hypertension; G89.29 Other chronic pain; M62.81 Muscle weakness (generalized); E11.9 Type 2 diabetes mellitus without complications; K21.9 Gastro-esophageal reflux disease without esophagitis; I45.10 Unspecified right bundle-branch block; Z95.0 Presence of cardiac pacemaker; Z79.82 Long term (current) use of aspirin; Z79.899 Other long term (current) drug therapy; Z88.0 Allergy status to penicillin; Z88.6 Allergy status to analgesic agent; Z88.8 Allergy status to other drugs, medicaments and biological substances; Z91.81 History of falling; Z87.19 Personal history of other diseases of the digestive system; Z86.711 Personal history of pulmonary embolism; Z82.49 Family history of ischemic heart disease and other diseases of the circulatory system; Z80.51 Family history of malignant neoplasm of kidney; Z90.49 Acquired absence of other specified parts of digestive tract; Z90.710 Acquired absence of both cervix and uterus
CPT/HCPCS: 36415 ×4; 71020; 71275; 80048; 80053; 81001; 82270; 82550 ×3; 82553 ×3; 83880; 84484 ×3; 85025 ×2; 85379; 85610; 85730; 86140; 93005; 94640 ×2; 96374; 96375 ×2; 96376; 99284; G0378; J1170 ×2; J2060; J2270 ×4; J3480; J7620 ×2; Q0169 ×2

== ENCOUNTER → 2016-07-25 | Outpatient (CLI) | payer MEDICARE, OTHER | END | disposition home or self-care (01) | LOC: LAB.O 12:38 | PROVIDERS: ATTEND Nurse Practitioner Family | DX: M10.00 Idiopathic gout, unspecified site (principal); I10 Essential (primary) hypertension ==

== ENCOUNTER 2016-09-07 16:42 | Emergency (ER) | payer MEDICARE, OTHER ==
[2016-09-07] MEDS ORDERED: HYDROcodone 5MG/APAP 325MG 1 EA TAB PO ONE (18:19)
--- NOTE | 2016-09-07 18:22 | ED.PDOC ---
History of Present Illness - General Chief Complaint: General Stated Complaint: Head, neck & back pain s/p fall Time Seen by Provider: 09/07/16 17:20 Source: patient, RN notes reviewed, Vital Signs reviewed Exam Limitations: no limitations - History of Present Illness Initial Comments: Patient reports that yesterday she was locked out of her house so she tried climbing through a window. She fell backwards onto concrete hitting her head and back. + LOC for unknown period of time. She did get herself up and into the house. No numbness or tingling. No weakness, only pain. She does have a history of chronic pain issues but says she has not seen her pain management drMars in 4-5 months and is no longer on pain medication. Timing/Duration: 24 hours Severity: severe Improving Factors: nothing Worsening Factors: movement Associated Symptoms: headaches Allergies/Adverse Reactions: Allergies Ketorolac Tromethamine [From Toradol] Allergy (Verified 07/03/16 18:03) Hives shortness Penicillin G Allergy (Verified 07/03/16 18:03) Other welps Ondansetron [From Zofran] Adverse Reaction (Verified 07/03/16 18:03) Other Pt claims this causes her to "blister" Home Medications: Ambulatory Orders Aspirin [Aspirin EC] 81 mg PO DAILY 07/16/15 Pantoprazole Tablet [Protonix] 40 mg PO DAILY 07/16/15 Zolpidem Tartrate [Ambien] 10 mg PO BEDTIME 11/21/15 Buprenorphine [Butrans] 7.5 mcg TD WKLY 05/30/16 Haloperidol 0.5 mg PO BEDTIME PRN 05/30/16 Lisinopril 10 mg PO BEDTIME 05/30/16 ALPRAZolam [Xanax] 1 mg PO Q6H PRN #0 tab 06/01/16 tiZANidine [Zanaflex] 4 mg PO Q8H 07/03/16 Gabapentin 600 mg PO TID #0 07/04/16 Acetamin W/Cod #3 Tab [Tylenol w/CODEINE #3] 1 ea PO Q4HR PRN #15 tab 09/07/16 Cyclobenzaprine HCl 5 mg PO Q8HR PRN #12 tab 09/07/16 Review of Systems - Review of Systems Constitutional: States: no symptoms reported EENTM: States: no symptoms reported Respiratory: States: no symptoms reported Cardiology: States: no symptoms reported Gastrointestinal/Abdominal: States: no symptoms reported Musculoskeletal: States: see HPI, back pain, neck pain Skin: States: no symptoms reported Neurological: States: see HPI, headache - pain @ back of head where she struck it on the ground. Denies: numbness, paresthesia, tingling, weakness All other Systems: No Change from Baseline Past Medical History (General) - Patient Medical History Hx Seizures: Yes Hx Stroke: No Hx Dementia: No Hx Asthma: No Hx of COPD: No Hx Cardiac Disorders: Yes - pacemaker Hx Congestive Heart Failure: No Hx Pacemaker: Yes Hx Hypertension: Yes Hx Thyroid Disease: No Hx Diabetes: No Hx Gastroesophageal Reflux: Yes Hx Renal Disease: No Hx Cancer: No Hx of HIV: No Hx Hepatitis C: No Hx MRSA: No MRSA Source:: Wound - Vaccination History Hx Tetanus, Diphtheria Vaccination: No Hx Influenza Vaccination: No Hx Pneumococcal Vaccination: No - Social History Hx Tobacco Use: No Hx Chewing Tobacco Use: No Hx Alcohol Use: No Hx Substance Use: No Hx Substance Use Treatment: No Hx Depression: No Hx Physical Abuse: No Hx Emotional Abuse: No Hx Suspected Abuse: No - Female History Patient : No Family Medical History - Family History Father Living Status: Cause of : copd Mother Living Status: Cause of : colon ca Son Name: mother Living Status: Age at (years of age): 54 Cause of : colon cancer Hx Family Asthma: No Hx Family Congestive Heart Failure: No Hx Family Hypertension: Yes Hx Family Stroke: Yes Hx Cardiac Disease: No Hx Family Diabetes: No Hx Family Cancer: Yes Hx Family;Other: Crohn's Physical Exam - Physical Exam General Appearance: Alert, Anxious, Well Developed, Well Groomed, Well Hydrated , Well Nourished, Other - In obvious discomfort Neck: limited range of motion - due to pain, tender lateral Respiratory: chest non-tender, lungs clear, normal breath sounds, no respiratory distress, no accessory muscle use Cardiovascular/Chest: regular rate, rhythm, no gallop, no murmur Back Exam: vertebral tenderness - mid thoracic and lumbar Extremity: normal range of motion, non-tender Neurologic: no motor/sensory deficits, alert, normal mood/affect, oriented x 3 Skin Exam: normal color, warm/dry Progress - EKG/XRAY/CT Xray Comments: C, T & L-spine: no fractures or acute changes per Radiologist CT Ordered: Yes - Head: no acute intracranial abnormalities per Radiologist Departure - Departure Clinical Impression: Closed head injury with concussion Qualifiers: Encounter type: initial encounter Loss of consciousness presence/duration: with LOC of unspecified duration Qualified Code(s): S06.0X9A - Concussion with loss of consciousness of unspecified duration, initial encounter Contusion of scalp Qualifiers: Encounter type: initial encounter Qualified Code(s): S00.03XA - Contusion of scalp, initial encounter Contusion of back wall of thorax Qualifiers: Encounter type: initial encounter Laterality: unspecified laterality Qualified Code(s): S20.229A - Contusion of unspecified back wall of thorax, initial encounter Contusion of lower back Qualifiers: Encounter type: initial encounter Qualified Code(s): S30.0XXA - Contusion of lower back and pelvis, initial encounter Cervical strain, acute Qualifiers: Encounter type: initial encounter Qualified Code(s): S16.1XXA - Strain of muscle, fascia and tendon at neck level, initial encounter Time of Disposition: 19:51 Disposition: Discharge to Home or Self Care Condition: Fair Departure Forms: ED Discharge - Pt. Copy, Patient Portal Self Enrollment Instructions: DI for Contusion, DI for Cervical Muscle Strain, DI for Closed Head Injury Diet: resume usual diet Activity: increase activity as tolerated Referrals: JANET G[facility]Z [employer] [Primary Care Provider] - 1-2 Weeks Prescriptions: Acetamin W/Cod #3 Tab [Tylenol w/CODEINE #3] 1 ea PO Q4HR PRN #15 tab PRN Reason: Moderate To Severe Pain Cyclobenzaprine HCl 5 mg PO Q8HR PRN #12 tab PRN Reason: Muscle Spasms Home Medications: Ambulatory Orders Aspirin [Aspirin EC] 81 mg PO DAILY 07/16/15 Pantoprazole Tablet [Protonix] 40 mg PO DAILY 07/16/15 Zolpidem Tartrate [Ambien] 10 mg PO BEDTIME 11/21/15 Buprenorphine [Butrans] 7.5 mcg TD WKLY 05/30/16 Haloperidol 0.5 mg PO BEDTIME PRN 05/30/16 Lisinopril 10 mg PO BEDTIME 05/30/16 ALPRAZolam [Xanax] 1 mg PO Q6H PRN #0 tab 06/01/16 tiZANidine [Zanaflex] 4 mg PO Q8H 07/03/16 Gabapentin 600 mg PO TID #0 07/04/16 Acetamin W/Cod #3 Tab [Tylenol w/CODEINE #3] 1 ea PO Q4HR PRN #15 tab 09/07/16 Cyclobenzaprine HCl 5 mg PO Q8HR PRN #12 tab 09/07/16
--- NOTE | 2016-09-07 18:54 | CT ---
EXAM: Head CLINICAL INDICATION: 65-year-old female, bilateral window and hit back of head with positive loss of consciousness. COMPARISON: None. TECHNIQUE: CT brain without contrast. This exam was performed according to our departmental dose optimization program which includes use of automated exposure control, adjustment of the mA and/or kV according to patient size and/or use of iterative reconstruction technique. FINDINGS: Multifocal regions of patchy hypoattenuation are present in a subcortical and periventricular deep white matter distribution, nonspecific; however, most likely represent small vessel ischemic disease, age indeterminate. Bilateral basal ganglia calcifications may be senescent, however nonspecific. The ventricles, sulci, and cisterns are symmetric and unremarkable. The davenport-white matter differentiation is preserved. There is no mass effect, midline shift, intra- or extra-axial fluid collection/acute hemorrhage. The osseous structures are unremarkable. The paranasal sinuses and mastoid air cells are clear. IMPRESSION: 1. No acute intracranial abnormalities. Nonspecific white matter change most likely small vessel ischemic disease, age indeterminate. 2. CT is insensitive for early evaluation of acute stroke. If there is clinical concern for acute ischemia, an MRI may be considered. Electronically signed by: Jennifer Gibson MD 09/07/2016 6:53 PM CDT Workstation: [id number]
[2016-09-07] MEDS ORDERED: CYCLOBENZAPRINE HCL 10 MG TAB PO ONE (19:38)
--- NOTE | 2016-09-07 19:44 | RAD ---
EXAM DESCRIPTION: Cervical Spine,3 Views (accession [id number]), Lumbar Spine 3 Views (accession [id number]), Thoracic Spine,AP Lateral (accession [id number]) CLINICAL HISTORY: 65 years, Female, pain s/p fall out window onto back COMPARISON: CT scan of the cervical spine and lumbar spine dated 06/30/[address] scan of the thoracic spine dated 02/27/2016. FINDINGS: Three views of the cervical spine, two views of the thoracic spine, and three views of the lumbar spine were performed. Lumbar spine: There are five nonrib-bearing lumbar-type vertebral bodies labeled L1-L5 for the purpose of this dictation. Redemonstrated is some superior endplate cupping at the L3 level. Some superior and inferior endplate cupping involve L5. No acute fracture is seen. Disc space narrowing and osteophyte formation involve L1-L2. Osteophyte production is noted at other levels but no associated significant disc space narrowing is present. Facet hypertrophy involves the lower lumbar spine. No listhesis. Large amount of colonic stool. Thoracic spine: There is limited visualization of the upper thoracic spine on the lateral radiograph secondary to bony overlap. Vertebral body heights and disc spaces are maintained. Osteophyte formation is diffuse. No fracture is seen. There is mild rightward curvature of the thoracic spine. Pedicles are symmetric. Cervical spine: Visualization on the lateral radiograph is through the C6-C7 level. There is no prevertebral soft tissue swelling. Vertebral body heights are maintained. Disc space narrowing is greatest at C5-C6 and associated with osteophyte formation. No listhesis. No apical pneumothorax. The dens is intact. IMPRESSION: No acute cervical, thoracic or lumbar spine fracture. No significant listhesis. Limited visualization of the lower cervical spine and upper thoracic spine on lateral radiographs secondary to bony overlap. Degenerative disc disease and facet arthropathy is mild to moderate in degree with most prominent areas as described above. Electronically signed by: Amanda Mendenhall MD 09/07/2016 7:44 PM CDT Workstation: [id number]
--- NOTE | 2016-09-07 19:44 | RAD ---
EXAM DESCRIPTION: Cervical Spine,3 Views (accession [id number]), Lumbar Spine 3 Views (accession [id number]), Thoracic Spine,AP Lateral (accession [id number]) CLINICAL HISTORY: 65 years, Female, pain s/p fall out window onto back COMPARISON: CT scan of the cervical spine and lumbar spine dated 06/30/[address] scan of the thoracic spine dated 02/27/2016. FINDINGS: Three views of the cervical spine, two views of the thoracic spine, and three views of the lumbar spine were performed. Lumbar spine: There are five nonrib-bearing lumbar-type vertebral bodies labeled L1-L5 for the purpose of this dictation. Redemonstrated is some superior endplate cupping at the L3 level. Some superior and inferior endplate cupping involve L5. No acute fracture is seen. Disc space narrowing and osteophyte formation involve L1-L2. Osteophyte production is noted at other levels but no associated significant disc space narrowing is present. Facet hypertrophy involves the lower lumbar spine. No listhesis. Large amount of colonic stool. Thoracic spine: There is limited visualization of the upper thoracic spine on the lateral radiograph secondary to bony overlap. Vertebral body heights and disc spaces are maintained. Osteophyte formation is diffuse. No fracture is seen. There is mild rightward curvature of the thoracic spine. Pedicles are symmetric. Cervical spine: Visualization on the lateral radiograph is through the C6-C7 level. There is no prevertebral soft tissue swelling. Vertebral body heights are maintained. Disc space narrowing is greatest at C5-C6 and associated with osteophyte formation. No listhesis. No apical pneumothorax. The dens is intact. IMPRESSION: No acute cervical, thoracic or lumbar spine fracture. No significant listhesis. Limited visualization of the lower cervical spine and upper thoracic spine on lateral radiographs secondary to bony overlap. Degenerative disc disease and facet arthropathy is mild to moderate in degree with most prominent areas as described above. Electronically signed by: Amanda Mendenhall MD 09/07/2016 7:44 PM CDT Workstation: [id number]
--- NOTE | 2016-09-07 19:44 | RAD ---
EXAM DESCRIPTION: Cervical Spine,3 Views (accession [id number]), Lumbar Spine 3 Views (accession [id number]), Thoracic Spine,AP Lateral (accession [id number]) CLINICAL HISTORY: 65 years, Female, pain s/p fall out window onto back COMPARISON: CT scan of the cervical spine and lumbar spine dated 06/30/[address] scan of the thoracic spine dated 02/27/2016. FINDINGS: Three views of the cervical spine, two views of the thoracic spine, and three views of the lumbar spine were performed. Lumbar spine: There are five nonrib-bearing lumbar-type vertebral bodies labeled L1-L5 for the purpose of this dictation. Redemonstrated is some superior endplate cupping at the L3 level. Some superior and inferior endplate cupping involve L5. No acute fracture is seen. Disc space narrowing and osteophyte formation involve L1-L2. Osteophyte production is noted at other levels but no associated significant disc space narrowing is present. Facet hypertrophy involves the lower lumbar spine. No listhesis. Large amount of colonic stool. Thoracic spine: There is limited visualization of the upper thoracic spine on the lateral radiograph secondary to bony overlap. Vertebral body heights and disc spaces are maintained. Osteophyte formation is diffuse. No fracture is seen. There is mild rightward curvature of the thoracic spine. Pedicles are symmetric. Cervical spine: Visualization on the lateral radiograph is through the C6-C7 level. There is no prevertebral soft tissue swelling. Vertebral body heights are maintained. Disc space narrowing is greatest at C5-C6 and associated with osteophyte formation. No listhesis. No apical pneumothorax. The dens is intact. IMPRESSION: No acute cervical, thoracic or lumbar spine fracture. No significant listhesis. Limited visualization of the lower cervical spine and upper thoracic spine on lateral radiographs secondary to bony overlap. Degenerative disc disease and facet arthropathy is mild to moderate in degree with most prominent areas as described above. Electronically signed by: Amanda Mendenhall MD 09/07/2016 7:44 PM CDT Workstation: [id number]
[2016-09-07] MEDS ORDERED: CYCLOBENZAPRINE TAB (ER DISP) 10 MG TAB PO ONE (19:54)
[2016-09-07] MEDS ORDERED: ACETAMINOPHEN W/COD #3 TAB (ER Disp) PO ONE (19:54)
[2016-09-07 20:15] VITALS: BP 191/87; TEMP 98.7; O2SAT 98
== END 2016-09-07 20:15 | disposition home or self-care (01) ==
LOC: ER 16:42
DX: S06.0X9A Concussion with loss of consciousness of unspecified duration, initial encounter (principal); S00.03XA Contusion of scalp, initial encounter; S30.0XXA Contusion of lower back and pelvis, initial encounter; S16.1XXA Strain of muscle, fascia and tendon at neck level, initial encounter; I10 Essential (primary) hypertension; K21.9 Gastro-esophageal reflux disease without esophagitis; R56.9 Unspecified convulsions; Z88.1 Allergy status to other antibiotic agents; Z88.8 Allergy status to other drugs, medicaments and biological substances; Z95.0 Presence of cardiac pacemaker; Z79.82 Long term (current) use of aspirin; Z79.899 Other long term (current) drug therapy; W17.89XA Other fall from one level to another, initial encounter; Y92.009 Unspecified place in unspecified non-institutional (private) residence as the place of occurrence of the external cause

== ENCOUNTER 2016-09-27 21:26 | Emergency (ER) | payer MEDICARE, OTHER ==
[2016-09-27] MEDS ORDERED: PROMETHAZINE HCL INJ 25 MG/ML VIAL IM ONE (21:43)
[2016-09-27 22:31] VITALS: TEMP 98.6; O2SAT 96
--- NOTE | 2016-09-27 22:51 | CT ---
PROCEDURE: Head CLINICAL HISTORY: 65 years Female fall with vomiting COMPARISON: None. TECHNIQUE: Contiguous axial images obtained through the brain without IV contrast. This exam was performed according to our department optimization program which includes automated exposure control, adjustment of the mA and/or kv according to patient size and/or use of iterative reconstruction technique. FINDINGS: The ventricles and sulci are within normal limits for the patient's age. No midline shift or mass effect. No masses identified. No acute intracranial hemorrhage. Mucosal thickening in ethmoid air cells and frontal sinuses bilaterally. No depressed calvarial fractures. IMPRESSION: No acute intracranial abnormality is identified. Electronically signed by: Amber Medrano 09/27/2016 10:50 PM CDT
--- NOTE | 2016-09-27 23:04 | CT ---
PROCEDURE: Cervical Spine CLINICAL HISTORY: 65 years Female fall head pain and vomiting/ COMPARISON: None. TECHNIQUE: Contiguous axial images obtained through the cervical spine without IV contrast. Coronal and sagittal reformatted images obtained. This exam was performed according to our department optimization program which includes automated exposure control, adjustment of the mA and/or kv according to patient size and/or use of iterative reconstruction technique. FINDINGS: Vertebral body alignment is unremarkable. No acute fractures. No prevertebral soft tissue swelling. Narrowing of the C5-6 disc interspace. Small central disc protrusion at C2-C3 with mild narrowing of the central canal. Mild right neural foraminal stenosis at C5-6. IMPRESSION: No acute cervical spinal fracture is identified. Electronically signed by: Amber Medrano 09/27/2016 11:02 PM CDT
--- NOTE | 2016-09-27 23:15 | ED.PDOC ---
History of Present Illness - General Chief Complaint: Trauma Stated Complaint: n/v after fall Time Seen by Provider: 09/27/16 21:27 Source: patient Exam Limitations: no limitations - History of Present Illness Initial Comments: The patient is a 65-year-old female presenting to the emergency room secondary to nausea and vomiting. Apparently the patient tripped and fell in her home this morning hitting her head, her foreheadon the floor. Since that time she has had intermittent nausea and vomiting throughout the day as well as a headache. No vision changes. No definite neck pain. No other areas of discomfort. The patient is extremely anxious and in his steroids upon arrival. The patient reports that she hasdry heaves more than 100 times. No blood and no bile. No fevers. 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 This fall however was not due to syncope. Timing/Duration: unsure Severity: moderate Improving Factors: nothing Worsening Factors: nothing Associated Symptoms: malaise, nausea/vomiting Allergies/Adverse Reactions: Allergies Ketorolac Tromethamine [From Toradol] Allergy (Verified 07/03/16 18:03) Hives shortness Penicillin G Allergy (Verified 07/03/16 18:03) Other welps Ondansetron [From Zofran] Adverse Reaction (Verified 07/03/16 18:03) Other Pt claims this causes her to "blister" Home Medications: Ambulatory Orders Aspirin [Aspirin EC] 81 mg PO DAILY 07/16/15 Pantoprazole Tablet [Protonix] 40 mg PO DAILY 07/16/15 Zolpidem Tartrate [Ambien] 10 mg PO BEDTIME 11/21/15 Buprenorphine [Butrans] 7.5 mcg TD WKLY 05/30/16 Haloperidol 0.5 mg PO BEDTIME PRN 05/30/16 Lisinopril 10 mg PO BEDTIME 05/30/16 ALPRAZolam [Xanax] 1 mg PO Q6H PRN #0 tab 06/01/16 tiZANidine [Zanaflex] 4 mg PO Q8H 07/03/16 Gabapentin 600 mg PO TID #0 07/04/16 Acetamin W/Cod #3 Tab [Tylenol w/CODEINE #3] 1 ea PO Q4HR PRN #15 tab 09/07/16 Cyclobenzaprine HCl 5 mg PO Q8HR PRN #12 tab 09/07/16 Egsrdpwsqzubq-Nrms-Plmgmlopey [Fioricet] 1 ea PO Q8H PRN #21 tab 09/27/16 Promethazine HCl 25 mg PO Q6H PRN #10 tab 09/27/16 Review of Systems - Review of Systems Constitutional: States: malaise EENTM: States: no symptoms reported Respiratory: States: no symptoms reported Cardiology: States: no symptoms reported Gastrointestinal/Abdominal: States: nausea, vomiting Genitourinary: States: no symptoms reported Musculoskeletal: States: no symptoms reported. Denies: neck pain Skin: States: no symptoms reported Neurological: States: headache Endocrine: States: no symptoms reported All other Systems: No Change from Baseline Past Medical History (General) - Patient Medical History Hx Seizures: Yes Hx Stroke: No Hx Dementia: No Hx Asthma: No Hx of COPD: No Hx Cardiac Disorders: Yes - pacemaker Hx Congestive Heart Failure: No Hx Pacemaker: Yes Hx Hypertension: Yes Hx Thyroid Disease: No Hx Diabetes: No Hx Gastroesophageal Reflux: Yes Hx Renal Disease: No Hx Cancer: No Hx of HIV: No Hx Hepatitis C: No Hx MRSA: No MRSA Source:: Wound - Vaccination History Hx Tetanus, Diphtheria Vaccination: No Hx Influenza Vaccination: No Hx Pneumococcal Vaccination: No - Social History Hx Tobacco Use: No Hx Chewing Tobacco Use: No Hx Alcohol Use: No Hx Substance Use: No Hx Substance Use Treatment: No Hx Depression: No Hx Physical Abuse: No Hx Emotional Abuse: No Hx Suspected Abuse: No - Female History Patient : No Family Medical History - Family History Father Living Status: Cause of : copd Mother Living Status: Cause of : colon ca Son Name: mother Living Status: Age at (years of age): 54 Cause of : colon cancer Hx Family Asthma: No Hx Family Congestive Heart Failure: No Hx Family Hypertension: Yes Hx Family Stroke: Yes Hx Cardiac Disease: No Hx Family Diabetes: No Hx Family Cancer: Yes Hx Family;Other: Crohn's Physical Exam - Physical Exam General Appearance: Alert, Anxious, Other - the patient can be heard wailing and crying across the room. Staff has informed me this is normal behavior for her when she shows up at the emergency room. She has not vomited since arrival. Eye Exam: bilateral normal - at her baseline Ears, Nose, Throat: hearing grossly normal, normal pharynx Neck: non-tender, full range of motion, supple Respiratory: chest non-tender, lungs clear, normal breath sounds, no respiratory distress, no accessory muscle use Cardiovascular/Chest: normal peripheral pulses, no edema, other - regular rate Peripheral Pulses: radial,right: 2+, radial,left: 2+, dorsalis pedis,right: 2+, dorsalis pedis,left: 2+ Gastrointestinal/Abdominal: non tender, soft Rectal Exam: deferred Back Exam: normal inspection, no CVA tenderness, no vertebral tenderness Extremity: normal range of motion - for this patient, non-tender, no pedal edema , normal capillary refill 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 No crepitus. I cannot see where she hit. Comments: Vital Signs - 24 hr 09/27/16 22:03 Temperature 98.6 F Pulse Rate [ 99 H left] Respiratory 18 Rate Blood Pressure 161/89 [left] O2 Sat by Pulse 96 Oximetry Progress - Progress Progress: 09/27/16 23:18 the patient is a 65-year-old female who tripped and fell this morning and hit her head with subsequent episodes of vomiting. The patient has tolerated Phenergan well with no further episodes of vomiting. Head CT and CT scan of the cervical spine showed no evidence of any acute trauma. The patient likely has a mild concussion. Concussion warnings have been given to the patient and her . Phenergan can be used to control vomiting and Fioricet can be used for pain control for the next few days. She needs to keep herself well-hydrated. She needs to ambulate more carefully. She needs to follow-up with her primary care doctor early next week. ER warnings are given. Departure - Departure Clinical Impression: Concussion Qualifiers: Encounter type: initial encounter Loss of consciousness presence/duration: without LOC Qualified Code(s): S06.0X0A - Concussion without loss of consciousness, initial encounter Disposition: Discharge to Home or Self Care Condition: Fair Departure Forms: ED Discharge - Pt. Copy, Patient Portal Self Enrollment Instructions: DI for Postconcussion Syndrome, DI for Concussion Diet: regular diet Activity: increase activity as tolerated Referrals: JANET GAMEZ IV, GERONTOLOGY AIDE [Primary Care Provider] - 1-5 Days Prescriptions: Fnxwhqlqihggx-Bvhw-Qunfbsdxyd [Fioricet] 1 ea PO Q8H PRN #21 tab PRN Reason: Pain Promethazine HCl 25 mg PO Q6H PRN #10 tab PRN Reason: Vomiting Home Medications: Ambulatory Orders Aspirin [Aspirin EC] 81 mg PO DAILY 07/16/15 Pantoprazole Tablet [Protonix] 40 mg PO DAILY 07/16/15 Zolpidem Tartrate [Ambien] 10 mg PO BEDTIME 11/21/15 Buprenorphine [Butrans] 7.5 mcg TD WKLY 05/30/16 Haloperidol 0.5 mg PO BEDTIME PRN 05/30/16 Lisinopril 10 mg PO BEDTIME 05/30/16 ALPRAZolam [Xanax] 1 mg PO Q6H PRN #0 tab 06/01/16 tiZANidine [Zanaflex] 4 mg PO Q8H 07/03/16 Gabapentin 600 mg PO TID #0 07/04/16 Acetamin W/Cod #3 Tab [Tylenol w/CODEINE #3] 1 ea PO Q4HR PRN #15 tab 09/07/16 Cyclobenzaprine HCl 5 mg PO Q8HR PRN #12 tab 09/07/16 Ipeehwmraoyqx-Mkuu-Dgxjsbivlm [Fioricet] 1 ea PO Q8H PRN #21 tab 09/27/16 Promethazine HCl 25 mg PO Q6H PRN #10 tab 09/27/16 Additional Instructions: the patient is a 65-year-old female who tripped and fell this morning and hit her head with subsequent episodes of vomiting. The patient has tolerated Phenergan well with no further episodes of vomiting. Head CT and CT scan of the cervical spine showed no evidence of any acute trauma. The patient likely has a mild concussion. Concussion warnings have been given to the patient and her . Phenergan can be used to control vomiting and Fioricet can be used for pain control for the next few days. She needs to keep herself well-hydrated. She needs to ambulate more carefully. She needs to follow-up with her primary care doctor early next week. ER warnings are given.
[2016-09-27 23:45] VITALS: BP 159/75
== END 2016-09-27 23:40 | disposition home or self-care (01) ==
LOC: ER 21:26
DX: S06.0X0A Concussion without loss of consciousness, initial encounter (principal); I10 Essential (primary) hypertension; K21.9 Gastro-esophageal reflux disease without esophagitis; Z95.0 Presence of cardiac pacemaker; Z79.82 Long term (current) use of aspirin; Z79.899 Other long term (current) drug therapy; Z88.0 Allergy status to penicillin; Z88.6 Allergy status to analgesic agent; W01.0XXA Fall on same level from slipping, tripping and stumbling without subsequent striking against object, initial encounter; Y92.009 Unspecified place in unspecified non-institutional (private) residence as the place of occurrence of the external cause
CPT/HCPCS: 70450; 72125; J2550

== ENCOUNTER 2016-10-07 21:03 | Emergency (ER) | payer MEDICARE, OTHER ==
--- NOTE | 2016-10-07 21:16 | ED.PDOC ---
History of Present Illness - General Chief Complaint: Head Injury Stated Complaint: fall Time Seen by Provider: 10/07/16 21:08 Source: patient, family Exam Limitations: no limitations Additional Information: Yaquelin Eubakns 66 y/o female brought by ems after she passed out in the bathroom fell on the floor and had passed out for about 2 minutes which was witnessed by his son.On arrival here she was talking,and stating does not want to be poked many times.She was at [facility] last week for infusaport placement but was re scheduled after she had an episode of chest pains ,blood pressure got elevated and was sent home.Had multiple episodes of passing out and falling in the past and multiple ct's of head -no infarct or brain bleed. On arrival at er she was awake talking.Her blood sugar was 249 taken by ems. - History of Present Illness Occurred: just prior to arrival, other - 100 minutes ago Severity: moderate Injuries/Pain Location: no injury Reason for Fall: fainted Loss of Consciousness: prolonged (minutes) Improving Factors: nothing Worsening Factors: nothing Associated Symptoms (Fall): denies symptoms Allergies/Adverse Reactions: Allergies Fentanyl Allergy (Verified 10/07/16 21:32) Ketorolac Tromethamine [From Toradol] Allergy (Verified 10/07/16 21:32) Hives shortness Penicillin G Allergy (Verified 10/07/16 21:32) Other welps Ondansetron [From Zofran] Adverse Reaction (Verified 10/07/16 21:32) Other Pt claims this causes her to "blister" Home Medications: Ambulatory Orders Aspirin [Aspirin EC] 81 mg PO DAILY 07/16/15 Zolpidem Tartrate [Ambien] 10 mg PO BEDTIME 11/21/15 Lisinopril 10 mg PO BEDTIME 05/30/16 tiZANidine [Zanaflex] 4 mg PO Q8H 07/03/16 Alprazolam [Xanax] 2 mg PO QID PRN 10/07/16 Gabapentin 300 mg PO TID 10/07/16 Review of Systems - Review of Systems Constitutional: States: no symptoms reported EENTM: States: no symptoms reported Respiratory: States: no symptoms reported Cardiology: States: no symptoms reported Gastrointestinal/Abdominal: States: no symptoms reported Musculoskeletal: States: no symptoms reported Skin: States: no symptoms reported Neurological: States: seizure - history, other - multiple falls Endocrine: States: no symptoms reported Hematologic/Lymphatic: States: no symptoms reported Past Medical History (General) - Patient Medical History Hx Seizures: Yes Hx Stroke: No Hx Dementia: No Hx Asthma: No Hx of COPD: No Hx Cardiac Disorders: Yes - pacemaker Hx Congestive Heart Failure: No Hx Pacemaker: Yes - had cardiacwork up done echo,cardiac cath no obstucting lesion Hx Hypertension: Yes Hx Thyroid Disease: No Hx Diabetes: No Hx Gastroesophageal Reflux: Yes Hx Renal Disease: No Hx Cancer: No Hx of HIV: No Hx Hepatitis C: No Hx MRSA: No Hx Other PMH: Yes - ulcerative colitis MRSA Source:: Wound Surgical History: cholecystectomy, other - pacemaker hysterectomy, - Vaccination History Hx Tetanus, Diphtheria Vaccination: No Hx Influenza Vaccination: No Hx Pneumococcal Vaccination: No - Social History Hx Tobacco Use: No Hx Chewing Tobacco Use: No Hx Alcohol Use: No Hx Substance Use: No Hx Substance Use Treatment: No Hx Depression: No Hx Physical Abuse: No Hx Emotional Abuse: No Hx Suspected Abuse: No - Activities of Daily Living Patient Lives Alone: No - family Grooming Ability: Independent Eating (Feeding) Ability: Independent Toileting Ability: Independent - Female History Patient : No Physical Exam - Physical Exam General Appearance: Alert, No apparent distress, Other - speech fluent Head Injury: no evidence of injury Eye Exam: bilateral normal ENT Exam: hearing grossly normal, no evidence of ENT injury, no dental injury Peripheral Pulses: radial,right: 1+, radial,left: 1+ Cardiovascular/Respiratory: regular rate, rhythm, no M/R/G, normal peripheral pulses, normal breath sounds Gastrointestinal/Abdominal: non tender, soft, no organomegaly Back Exam: normal inspection, no CVA tenderness, no vertebral tenderness Extremity Exam: no evidence of injury, normal range of motion Neurologic: alert, oriented x 3, other - speech fluent no nystagmus no pronator drift Skin Exam: normal color, warm/dry - Delisa Coma Score Best Eye Response ([place]): (4) open spontaneously Best Verbal Response (Delisa): (5) oriented Best Motor Response ([place]): (6) obeys commands Delisa Total: 15 Progress - Progress Progress: 10/07/16 22:35 Vital Signs - 8 hr 10/07/16 10/07/16 21:05 21:16 Temperature 98.7 F Pulse Rate 66 Pulse Rate [ 66 66 monitor] Respiratory 15 16 Rate Blood Pressure 87/42 [Right Arm] O2 Sat by Pulse 96 Oximetry 10/07/16 22:42 Multiple attempts with vein cannulation done including EJ right then finally patient stated wants to sign out ama and go home declined further peripheral vein cannulation wants till her infusaport is placed next week.She had imdur given to her at [facility] for her anginal symptoms but refused to take it since giving her headaches. 10/07/16 22:45 10/07/16 22:49 - EKG/XRAY/CT EKG: Sinus, nonspecific ST T wave Chg Comments: heart rate 83,irbbb prolonged qt occ unifocal pvc's Departure - Departure Clinical Impression: Fall at home Qualifiers: Encounter type: initial encounter Qualified Code(s): W19.XXXA - Unspecified fall, initial encounter Syncope Qualifiers: Syncope type: unspecified Qualified Code(s): R55 - Syncope and collapse Time of Disposition: 22:41 Disposition: Left Against Medical Advice Activity: ambulate only with walker Referrals: JANET GAMEZ IV [facility]LL[employer] B[employer]ER [Primary Care Provider] - 1-2 Weeks Home Medications: Ambulatory Orders Aspirin [Aspirin EC] 81 mg PO DAILY 07/16/15 Zolpidem Tartrate [Ambien] 10 mg PO BEDTIME 11/21/15 Lisinopril 10 mg PO BEDTIME 05/30/16 tiZANidine [Zanaflex] 4 mg PO Q8H 07/03/16 Alprazolam [Xanax] 2 mg PO QID PRN 10/07/16 Gabapentin 300 mg PO TID 10/07/16 Additional Instructions: RETURN TO EMERGENCY ROOM NEEDED.
[2016-10-07 21:32] VITALS: TEMP 98.7
[2016-10-07 22:50] VITALS: BP 98/55; O2SAT 95
== END 2016-10-07 22:52 | disposition left against medical advice (07) ==
LOC: ER 21:03
DX: R55 Syncope and collapse (principal); I10 Essential (primary) hypertension; Z95.0 Presence of cardiac pacemaker; I45.10 Unspecified right bundle-branch block; Z79.82 Long term (current) use of aspirin; Z79.899 Other long term (current) drug therapy; Z88.0 Allergy status to penicillin; Z88.8 Allergy status to other drugs, medicaments and biological substances

== ENCOUNTER 2016-12-02 16:48 | Emergency (ER) | payer MEDICARE, OTHER ==
[2016-12-02] MEDS ORDERED: IBUPROFEN 200 MG TAB PO ONE (17:01)
--- NOTE | 2016-12-02 17:24 | RAD ---
EXAM: Chest,2 Views CLINICAL INDICATION: 66-year-old female with RIGHT upper chest pain at the site of port removal. TECHNIQUE: Two-view, PA and lateral projections of the chest were obtained. COMPARISON: 07/03/2016. FINDINGS: Stable cardiac and mediastinal silhouette. Heart size is normal. Pacemaker device overlies and obscures portions of the the LEFT hemithorax with leads intact at the level of the battery pack, stable in course and termination. Lungs are clear without focal opacity, pneumothorax or pleural effusions. The visualized bones are within normal limits. IMPRESSION: No acute cardiopulmonary abnormalities. Electronically signed by: Jennifer Gibson MD 12/02/2016 5:23 PM CDT Workstation: [id number]
[2016-12-02 17:39] VITALS: TEMP 100.3
[2016-12-02 18:49] VITALS: O2SAT 93
[2016-12-02] MEDS ORDERED: rifAMPin 300 MG CAP PO ONE (18:56)
[2016-12-02] MEDS ORDERED: levoFLOXacin 500 MG TAB PO ONE (18:56)
--- NOTE | 2016-12-02 19:02 | ED.PDOC ---
History of Present Illness - General Chief Complaint: Chest Pain/[place] Stated Complaint: Right upper chest wall discomfort Time Seen by Provider: 12/02/16 16:53 Source: patient Exam Limitations: no limitations - History of Present Illness Initial Comments: the patient is 66-year-old female presenting to the emergency room secondary to right anterior chest wall pain which she had an infected port removedapproximately 8 days ago. The patient has been on Bactrim. Culture results were obtained from [place] where it was removed showing 2 different forms of staph one from the catheter tip and one from the port bed. She has been on Bactrim which is not sensitive for the one grown out of the catheter tip. he does have a low-grade fever here. No nausea or vomiting. No syncope. Examination of the chest wall shows a wound that is healing withminimal erythema or increased warmth below but there is some discomfort palpation. No obvious abscesses apparent. No extending erythema. The patient has been having increased discomfort for the last 2 or 3 days. No urinary symptoms. No shortness of breath. Timing/Duration: unsure Severity: mild Improving Factors: nothing Worsening Factors: movement Associated Symptoms: denies symptoms Allergies/Adverse Reactions: Allergies Fentanyl Allergy (Verified 10/07/16 21:32) Ketorolac Tromethamine [From Toradol] Allergy (Verified 10/07/16 21:32) Hives shortness Penicillin G Allergy (Verified 10/07/16 21:32) Other welps Ondansetron [From Zofran] Adverse Reaction (Verified 10/07/16 21:32) Other Pt claims this causes her to "blister" Home Medications: Ambulatory Orders Aspirin [Aspirin EC] 81 mg PO DAILY 07/16/15 Zolpidem Tartrate [Ambien] 10 mg PO BEDTIME 11/21/15 Lisinopril 10 mg PO BEDTIME 05/30/16 tiZANidine [Zanaflex] 4 mg PO Q8H 07/03/16 Alprazolam [Xanax] 2 mg PO QID PRN 10/07/16 Gabapentin 300 mg PO TID 10/07/16 Rifampin [Rifadin] 300 mg PO BID #20 cap 12/02/16 levoFLOXacin [Levaquin] 500 mg PO DAILY@1200 #10 tab 12/02/16 Review of Systems - Review of Systems Constitutional: States: malaise EENTM: States: no symptoms reported Respiratory: States: no symptoms reported Cardiology: States: chest pain Gastrointestinal/Abdominal: States: no symptoms reported Genitourinary: States: no symptoms reported Musculoskeletal: States: no symptoms reported - chronic pain only Skin: States: no symptoms reported Neurological: States: anxiety - hronic All other Systems: No Change from Baseline Past Medical History (General) - Patient Medical History Hx Seizures: Yes Hx Stroke: No Hx Dementia: No Hx Asthma: No Hx of COPD: No Hx Cardiac Disorders: Yes - pacemaker Hx Congestive Heart Failure: No Hx Pacemaker: Yes Hx Hypertension: Yes Hx Thyroid Disease: No Hx Diabetes: No Hx Gastroesophageal Reflux: Yes Hx Renal Disease: No Hx Cancer: No Hx of HIV: No Hx Hepatitis C: No Hx MRSA: No MRSA Source:: Wound Surgical History: other - Vaccination History Hx Tetanus, Diphtheria Vaccination: No Hx Influenza Vaccination: No Hx Pneumococcal Vaccination: No - Social History Hx Tobacco Use: No Hx Chewing Tobacco Use: No Hx Alcohol Use: No Hx Substance Use: No Hx Substance Use Treatment: No Hx Depression: No Hx Physical Abuse: No Hx Emotional Abuse: No Hx Suspected Abuse: No - Female History Patient : No Family Medical History - Family History Father Living Status: Cause of : copd Mother Living Status: Cause of : colon ca Son Name: mother Living Status: Age at (years of age): 54 Cause of : colon cancer Hx Family Asthma: No Hx Family Congestive Heart Failure: No Hx Family Hypertension: Yes Hx Family Stroke: Yes Hx Cardiac Disease: No Hx Family Diabetes: No Hx Family Cancer: Yes Hx Family;Other: Crohn's Physical Exam - Physical Exam General Appearance: Alert, Anxious, No apparent distress Eye Exam: bilateral normal Ears, Nose, Throat: hearing grossly normal, normal ENT inspection, normal pharynx Neck: full range of motion, supple Respiratory: lungs clear, normal breath sounds, no respiratory distress, no accessory muscle use, other - chest wall is tender at the site of the port removal Cardiovascular/Chest: normal peripheral pulses, regular rate, rhythm, no edema Peripheral Pulses: radial,right: 2+, radial,left: 2+, dorsalis pedis,right: 2+, dorsalis pedis,left: 2+ Gastrointestinal/Abdominal: non tender, soft Rectal Exam: deferred Extremity: non-tender, no pedal edema, normal capillary refill 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 the patient is a 66-year-old female presenting with a low-grade fever and some chest wall discomfort from her infected port removal site. No evidence of other occurring current infection is present currently. The patient is going to be changed to rifampin and Levaquin based on culture sensitivities. She needs to keep herself well-hydrated. She needs to follow up with her primary care doctor later this week. - Results/Orders Results/Orders: 12/02/16 17:24 BLOOD CULTURE Stat Laboratory Results - last 24 hr 12/02/16 12/02/16 12/02/16 17:24 17:24 18:25 WBC 8.9 RBC 4.72 Hgb 9.6 L Hct 31.8 L MCV 67.4 L MCH 20.3 L MCHC 30.3 L RDW 20.2 H Plt Count 297 MPV 8.3 Absolute Neuts (auto) 5.60 Absolute Lymphs (auto) 2.40 Absolute Monos (auto) 0.60 Absolute Eos (auto) 0.20 Absolute Basos (auto) 0.10 Neutrophils % 63.4 Lymphocytes % 26.7 Monocytes % 6.4 Eosinophils % 2.4 Basophils % 1.1 Sodium 139 Potassium 4.4 Chloride 104 Carbon Dioxide 27 Anion Gap 12.4 BUN 8 Creatinine 0.77 BUN/Creatinine Ratio 10.4 Random Glucose 110 H Serum Osmolality 276.5 Calcium 8.9 Total Bilirubin 0.2 AST 34 ALT 16 Alkaline Phosphatase 142 H Serum Total Protein 7.8 Albumin 3.7 Globulin 4.1 H Albumin/Globulin Ratio 0.9 L Urine Color Yellow Urine Appearance Clear Urine pH 7.0 Ur Specific [place] 1.010 Urine Protein Negative Urine Glucose (UA) Negative Urine Ketones Negative Urine Blood Trace-intact H Urine Nitrite Negative Urine Bilirubin Negative Urine Urobilinogen 0.2 Ur Leukocyte Esterase Negative Urine RBC 0-1 Urine WBC 0 Ur Epithelial Cells 1-3 Urine Bacteria 0 culture results from the catheter tip from [place] show coag-negative staph sensitive for gentamicin and vancomycin levofloxacin and rifampin linezilid and daptomycin. culture results from theport site shows staph aureus sensitive to gentamicin, Bactrim, vancomycin, oxacillin, Levaquin, rifampin, tetracycline, daptomycin, linezolid. Departure - Departure Clinical Impression: Infection due to portacath Qualifiers: Encounter type: initial encounter Qualified Code(s): T80.219A - Unspecified infection due to central venous catheter, initial encounter Disposition: Discharge to Home or Self Care Condition: Fair Departure Forms: ED Discharge - Pt. Copy, Patient Portal Self Enrollment Diet: regular diet Activity: increase activity as tolerated Referrals: JANET GAMEZ IV [facility] TECHNICIAN [Primary Care Provider] - 1-2 Weeks Prescriptions: levoFLOXacin [Levaquin] 500 mg PO DAILY@1200 #10 tab Rifampin [Rifadin] 300 mg PO BID #20 cap Home Medications: Ambulatory Orders Aspirin [Aspirin EC] 81 mg PO DAILY 07/16/15 Zolpidem Tartrate [Ambien] 10 mg PO BEDTIME 11/21/15 Lisinopril 10 mg PO BEDTIME 05/30/16 tiZANidine [Zanaflex] 4 mg PO Q8H 07/03/16 Alprazolam [Xanax] 2 mg PO QID PRN 10/07/16 Gabapentin 300 mg PO TID 10/07/16 Rifampin [Rifadin] 300 mg PO BID #20 cap 12/02/16 levoFLOXacin [Levaquin] 500 mg PO DAILY@1200 #10 tab 12/02/16 Additional Instructions: the patient is a 66-year-old female presenting with a low-grade fever and some chest wall discomfort from her infected port removal site. No evidence of other occurring current infection is present currently. The patient is going to be changed to rifampin and Levaquin based on culture sensitivities. She needs to keep herself well-hydrated. She needs to follow up with her primary care doctor later this week.
[2016-12-02 19:27] VITALS: BP 95/59
== END 2016-12-02 19:28 | disposition home or self-care (01) ==
LOC: ER 16:48
DX: T82.7XXA Infection and inflammatory reaction due to other cardiac and vascular devices, implants and grafts, initial encounter (principal); R07.89 Other chest pain; B95.8 Unspecified staphylococcus as the cause of diseases classified elsewhere; I10 Essential (primary) hypertension; Z79.899 Other long term (current) drug therapy; Z79.82 Long term (current) use of aspirin; Z95.0 Presence of cardiac pacemaker; Z88.6 Allergy status to analgesic agent; Z88.0 Allergy status to penicillin

== ENCOUNTER → 2017-10-04 | Outpatient (CLI) | payer MEDICARE, OTHER ==
--- NOTE | 2017-10-04 18:47 | RAD ---
EXAM DESCRIPTION: Chest,2 Views CLINICAL HISTORY: HEMOPTYSIS COMPARISON: Previous study December 02, 2016 TECHNIQUE: PA/lateral FINDINGS: Cardiac pacer is in place, unchanged since previous study. Heart size is prominent with normal pulmonary vascularity. No pleural effusion or pneumothorax. Lungs are clear with no consolidating infiltrate. Lateral view shows intact sternum and T-spine. No worrisome change since previous study. IMPRESSION: Prominent heart without congestive failure. Electronically signed by: Royce Samano MD 10/04/2017 6:46 PM CDT
== END ==
LOC: LAB.O 11:19
PROVIDERS: ATTEND Nurse Practitioner Family
DX: R04.2 Hemoptysis (principal)

== ENCOUNTER 2018-03-02 10:19 | Emergency (ER) | payer MEDICARE, OTHER ==
[2018-03-02 10:46] VITALS: TEMP 99.7
[2018-03-02] MEDS ORDERED: SODIUM CHLORIDE 0.9% 1000ML 1,000 ML IVS ONE (10:59)
--- NOTE | 2018-03-02 11:26 | ED.PDOC ---
History of Present Illness - General Chief Complaint: GI Problem Stated Complaint: s/p fall,N/V/D,cough Time Seen by Provider: 03/02/18 10:57 Source: patient, family Exam Limitations: no limitations - History of Present Illness Initial Comments: patient comes in today brought in by EMS after fall. Patient's states for the past week she has progressively worsened. She is so weak that on going to the bathroom she can't get up on her own. Today he found her crawling trying to get to the bed he wasn't able to get her up himself. The patient has been suffering for the past 2 months after an initial onset of pneumonia. Patient after that time has continued to have cough, congestion, and her period trip to the ER that result and either hospitalization or antibiotic therapy. Her last visit was 2 weeks ago in [place]. Patient's was given ciprofloxacin and prednisone. Her states she did not complete the prednisone because it was causing her mouth to become raw and her stomach to hurt. For the past week she's had severe diarrhea that's green, malodorous, with some mucus. Patient is very drowsy and she has a difficult time completing her thoughts before closing her eyes and going back to sleep. The majority of the history is per her . Patient has had difficulty for the past 2 months but per family she has never required oxygen but was found by EMS to have an O2 sat of 88% this morning. On arrival she refers to her has been for many of the answers. On questioning she thinks the year is 2015 and she believes that they're [place] time but can't actually say what the month is. She can say her full name and knows that she had the halls is at the hospital. This morning she did fall and hit the right side of her head. 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 She has a past medical history of chronic pain of her neck and back since she f ell off the porch 2 years ago. She has hypertension, history of coronary artery disease, history of pulmonary embolus, and recurrent pneumonias. Patient has had no fever or chills this week. Patient is taking minimal by mouth intake and is very weak. Timing/Duration: unsure, getting worse Severity: severe Improving Factors: nothing Worsening Factors: nothing Associated Symptoms: cough, nausea/vomiting, shortness of breath, weakness Allergies/Adverse Reactions: Allergies Ciprofloxacin [From Cipro] Allergy (Verified 03/02/18 10:53) Fentanyl Allergy (Verified 10/07/16 21:32) Ketorolac Tromethamine [From Toradol] Allergy (Verified 10/07/16 21:32) Hives shortness Penicillin G Allergy (Verified 10/07/16 21:32) Other welps Ondansetron [From Zofran] Adverse Reaction (Verified 10/07/16 21:32) Other Pt claims this causes her to "blister" Home Medications: Ambulatory Orders Zolpidem Tartrate [Ambien] 10 mg PO BEDTIME 11/21/15 tiZANidine [Zanaflex] 4 mg PO TID 07/03/16 Alprazolam [Xanax] 1 mg PO BID 10/07/16 Gabapentin 300 mg PO TID 10/07/16 HYDROcodone 10MG/APAP 325MG [[place] 10/325] 1 tab PO Q5H PRN 03/02/18 Losartan Potassium 50 mg PO DAILY 03/02/18 Review of Systems - Review of Systems Constitutional: States: malaise, weakness. Denies: chills, diaphoresis, fever EENTM: States: mouth pain - "mouth peeling". Denies: eye pain, ear pain, nose pain, nose congestion, throat pain Respiratory: States: cough, short of breath Cardiology: States: no symptoms reported. Denies: chest pain, edema, palpitations Gastrointestinal/Abdominal: States: see HPI, abdominal pain, diarrhea, nausea. Denies: vomiting Genitourinary: States: no symptoms reported. Denies: dysuria, frequency, hematuria Musculoskeletal: States: no symptoms reported Skin: States: no symptoms reported Neurological: States: no symptoms reported Past Medical History (General) - Patient Medical History Hx Seizures: Yes Hx Stroke: No Hx Dementia: No Hx Asthma: No Hx of COPD: No Hx Cardiac Disorders: Yes - pacemaker Hx Congestive Heart Failure: No Hx Pacemaker: Yes Hx Hypertension: Yes Hx Thyroid Disease: No Hx Diabetes: No Hx Gastroesophageal Reflux: Yes Hx Renal Disease: No Hx Cancer: No Hx of HIV: No Hx Hepatitis C: No Hx MRSA: No MRSA Source:: Wound Surgical History: cholecystectomy, pacemaker, Hysterectomy - Vaccination History Hx Tetanus, Diphtheria Vaccination: No Hx Influenza Vaccination: No Hx Pneumococcal Vaccination: No - Social History Hx Tobacco Use: No Hx Chewing Tobacco Use: No Hx Alcohol Use: No Hx Substance Use: No Hx Substance Use Treatment: No Hx Depression: No Hx Physical Abuse: No Hx Emotional Abuse: No Hx Suspected Abuse: No - Female History Patient : No Family Medical History - Family History Father Living Status: Cause of : copd Mother Living Status: Cause of : colon ca Son Name: mother Living Status: Age at (years of age): 54 Cause of : colon cancer Hx Family Asthma: No Hx Family Congestive Heart Failure: No Hx Family Hypertension: Yes Hx Family Stroke: Yes Hx Cardiac Disease: No Hx Family Diabetes: No Hx Family Cancer: Yes Hx Family;Other: Crohn's Physical Exam - Physical Exam General Appearance: Alert, Anxious, Obvious distress Eye Exam: bilateral normal Ears, Nose, Throat: hearing grossly normal, normal ENT inspection, normal pharynx Neck: full range of motion, supple, other - tender with movement "since her fall 2 years ago" Respiratory: lungs clear, decreased breath sounds Cardiovascular/Chest: normal peripheral pulses, regular rate, rhythm, no edema, no gallop, no murmur Peripheral Pulses: radial,right: 2+, radial,left: 2+ Gastrointestinal/Abdominal: normal bowel sounds, non tender, soft Extremity: other - tender to palpation at the mid femur but no deformity, no swelling, no ecchymosis, moving extremity Neurologic: other - lethargic with no facial droop. Oriented to person and place but states it is 2016 and cannot name month. She knows it is close to [place]. Skin Exam: normal color Comments: patient is very lethargic and her eyes will not stay open for more than a couple of seconds. On trying to answer a question she cannot stay focused and although she has no facial droop or focal weakness she is unable to give her own history. Per her this is not her baseline. Patient originally referred to him for all questions but then on us desiring to draw blood and she began to say she wanted to go home and did not want blood or xrays done. However, she cannot lift her head, she does not know the date, and she is unable to appropriately answer questions. We discussed with her that at this time I do not think it is safe to send her home and he is in agreement. Her gives consent to proceed with workup as she has had a fall with head injury and cannot give or refuse consent at this time. Progress - Progress Progress: discussed at length with patient her results including elevated d-dimer and elevation of troponin. Patient is now more awake and alert. She is able to sit up on her own and can tell us accurately date, place, and person. She is more oriented as her pain medicines have decreased. We discussed with her and her that although she's been on the same dose of medications for years as her level of health has decrased that now they may be too strong for her as she does appear overmedicated. 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 Patient understands all of this and still adamant that she does not want to stay in the hospital and would like to leave AGAINST MEDICAL ADVICE. As she is more awake and alert and her oxygen levels are now better her also understands but feels like they cannot make her stay at this time. She understands that we have concerns for C. difficile infection and that we wish that she would stay for further workup and to help her increase her strength. At this time she refuses and we will discharge her home AGAINST MEDICAL ADVCE 03/02/18 13:30 - Results/Orders Results/Orders: 03/02/18 10:59 CLOSTRIDIUM DIFFICILE AG/TOXIN Stat 03/02/18 11:24 BLOOD CULTURE Stat 03/02/18 12:14 CTA Chest [CT] Stat Laboratory Results WBC 10.0 K/mm3 (4.8-10.8) 03/02/18 11:24 RBC 4.55 M/mm3 (4.20-5.40) 03/02/18 11:24 Hgb 13.4 gm/dL (12.0-16.0) 03/02/18 11:24 Hct 41.9 % (36.0-47.0) 03/02/18 11:24 MCV 92.1 fl (81.0-99.0) 03/02/18 11:24 MCH 29.4 pg (27.0-31.0) 03/02/18 11:24 MCHC 32.1 g/dL (33.0-37.0) L 03/02/18 11:24 RDW 15.6 % (11.5-14.5) H 03/02/18 11:24 Plt Count 199 K/mm3 (130-400) 03/02/18 11:24 MPV 8.6 fl (7.40-10.4) 03/02/18 11:24 Absolute Neuts (auto) 6.60 K/uL (1.8-6.8) 03/02/18 11:24 Absolute Lymphs (auto) 2.40 K/uL (1.0-3.4) 03/02/18 11:24 Absolute Monos (auto) 0.70 K/uL (0.2-0.8) 03/02/18 11:24 Absolute Eos (auto) 0.20 K/uL (0.0-0.4) 03/02/18 11:24 Absolute Basos (auto) 0.10 K/uL (0.0-0.1) 03/02/18 11:24 Neutrophils % 66.2 % (42.0-78.0) 03/02/18 11:24 Lymphocytes % 24.3 % (20.0-50.0) 03/02/18 11:24 Monocytes % 6.9 % (2.0-9.0) 03/02/18 11:24 Eosinophils % 1.8 % (1.0-5.0) 03/02/18 11:24 Basophils % 0.8 % (0.0-2.0) 03/02/18 11:24 D-Dimer, Quantitative 1.38 mg/L FEU (0-0.49) H* 03/02/18 11:05 Sodium 139 mmol/L (135-145) 03/02/18 11:24 Potassium 3.8 mmol/L (3.6-5.0) 03/02/18 11:24 Chloride 107 mmol/L (101-111) 03/02/18 11:24 Carbon Dioxide 24 mmol/L (21-31) 03/02/18 11:24 Anion Gap 11.8 (12-18) L 03/02/18 11:24 BUN 18 mg/dL (7-18) 03/02/18 11:24 Creatinine 1.09 mg/dL (0.6-1.3) 03/02/18 11:24 BUN/Creatinine Ratio 16.5 (10-20) 03/02/18 11:24 Random Glucose 91 mg/dL (70-105) 03/02/18 11:24 Serum Osmolality 279.0 mOsm/L (275-295) 03/02/18 11:24 Lactic Acid 1.2 mmol/L (0.5-2.2) 03/02/18 11:24 Calcium 8.7 mg/dL (8.4-10.2) 03/02/18 11:24 Total Bilirubin 0.5 mg/dL (0.2-1.0) 03/02/18 11:24 AST 61 IU/L (10-42) H 03/02/18 11:24 ALT 25 IU/L (10-60) 03/02/18 11:24 Alkaline Phosphatase 101 IU/L (42-121) 03/02/18 11:24 Creatine Kinase 2166 IU/L (26-140) H* 03/02/18 11:24 CK-MB (CK-2) 35.4 ng/mL (0.0-4.4) H* 03/02/18 11:24 CK-MB (CK-2) % 1.63 % (0.0-4.3) 03/02/18 11:24 Troponin I 0.06 ng/mL (0.01-0.05) H 03/02/18 11:24 B-Natriuretic Peptide 213.0 pg/ml (0-100) H* 03/02/18 11:03 Serum Total Protein 6.8 gm/dL (6.4-8.2) 03/02/18 11:24 Albumin 3.5 g/dl (3.2-5.5) 03/02/18 11:24 Globulin 3.3 gm/dL (2.3-3.5) 03/02/18 11:24 Albumin/Globulin Ratio 1.1 (1.1-1.9) 03/02/18 11:24 Urine Color Yellow (Yellow) 03/02/18 12:06 Urine Appearance Sl cloudy (Clear) 03/02/18 12:06 Urine pH 5.0 (4.5-7.8) 03/02/18 12:06 Ur Specific [place] 1.025 (1.005-1.030) 03/02/18 12:06 Urine Protein Negative mg/dL 03/02/18 12:06 Urine Glucose (UA) Negative mg/dL (Negative) 03/02/18 12:06 Urine Ketones Negative mg/dL (NEGATIVE) 03/02/18 12:06 Urine Blood Negative (Negative) 03/02/18 12:06 Urine Nitrite Negative 03/02/18 12:06 Urine Bilirubin Negative (NEGATIVE) 03/02/18 12:06 Urine Urobilinogen 0.2 mg/dL (0.2-1.0) 03/02/18 12:06 Ur Leukocyte Esterase Negative (Negative) 03/02/18 12:06 Urine RBC 0 /hpf 03/02/18 12:06 Urine WBC 0 /hpf 03/02/18 12:06 Ur Epithelial Cells 10-20 /hpf 03/02/18 12:06 Urine Bacteria 0 03/02/18 12:06 Patient Name: ISAEL YOO Gender: Female Date of : 1950 Referring Physician: KAYLAH ESPINOZA Organization: [facility] Accession Number: [id number] Requested Date: March 02, 2018 10:59 Report Status: Final Requested Procedure: 1 Procedure Description: Cervical Spine Modality: CT Findings Reporting MD: Cheng Sargent Fellow MD: Not available Dictation Time: It Infrastructure Consultant: Not available Protective Clothing Issuer Date: CLINICAL HISTORY: fall, altered LOC, pain COMPARISON: None. TECHNIQUE: CT CERVICAL SPINE WITHOUT IV CONTRAST on 03/02/2018 10:59 AM CLINIC DIRECTOR This exam was performed according to our departmental dose-optimization program, which includes automated exposure control, adjustment of the mA and/or kV according to patient size and/or use of iterative reconstruction technique. FINDINGS: There is no acute fracture. There is straightening of normal cervical lordosis. There is minimal upper cervical spine right-sided facet arthritis. There is mild narrowing of the C5-6 disc. Vertebral body heights are preserved. Soft tissues are unremarkable. IMPRESSION: No acute fracture or subluxation Patient Name: ISAEL YOO Gender: Female Date of : 1950 Referring Physician: KAYLAH ESPINOZA Organization: [facility] Accession Number: [id number] Requested Date: March 02, 2018 10:59 Report Status: Final Requested Procedure: 1 Procedure Description: Head Modality: CT Findings Reporting MD: Cheng Sargent Fellow MD: Not available Dictation Time: It Infrastructure Consultant: Not available Protective Clothing Issuer Date: CLINICAL HISTORY: fall, altered LOC, pain COMPARISON: None. TECHNIQUE: CT HEAD WITHOUT IV CONTRAST on 03/02/2018 10:59 AM CLINIC DIRECTOR This exam was performed according to our departmental dose-optimization program, which includes automated exposure control, adjustment of the mA and/or kV according to patient size and/or use of iterative reconstruction technique. FINDINGS: There is no acute hemorrhage, mass effect or midline shift. Mcfarland-white differentiation is preserved. There is no hydrocephalus. There is no significant volume loss for age. There are mild patchy hypodensities within the periventricular and subcortical white matter, consistent with microangiopathic ischemic changes. The calvarium is intact. Orbits and globes are unremarkable. The paranasal sinuses are clear. Mastoid air cells are clear. IMPRESSION: No acute intracranial findings. Patient Name: ISAEL YOO Gender: Female Date of : 1950 Referring Physician: KAYLAH ESPINOZA Organization: [facility] Accession Number: [id number] Requested Date: March 02, 2018 10:59 Report Status: Final Requested Procedure: 1 Procedure Description: Femur,Right Modality: CR Findings Reporting MD: Diamond Flowers Fellow MD: Not available Dictation Time: It Infrastructure Consultant: Not available Protective Clothing Issuer Date: EXAM DESCRIPTION: Femur,Right CLINICAL HISTORY: 67 years Female fall with pain COMPARISON: None TECHNIQUE: AP, lateral and oblique views of the right femur are obtained. FINDINGS: OSSEOUS: There is no evidence of acute fracture or osteolytic/osteoblastic lesions. There is no evidence of subluxation or dislocation. There is mild narrowing of the hip joint which measures 3 mm superiorly with mild marginal osteophytosis. There is no evidence of marginal erosive changes to suggest an inflammatory arthritis. There is minimal enthesopathy along the greater trochanter. SOFT TISSUE: There is no significant soft tissue swelling or mass. No evidence of significant soft tissue calcifications. No radiopaque foreign bodies. No evidence of right hip joint or suprapatellar effusions IMPRESSION: No acute osseous abnormalities. Primary osteoarthritis in the right hip Remainder of findings as described above. Patient Name: ISAEL YOO Gender: Female Date of : 1950 Referring Physician: KAYLAH ESPINOZA Organization: [facility] Accession Number: [id number] Requested Date: March 02, 2018 10:59 Report Status: Final Requested Procedure: 1 Procedure Description: Hip,Right 2 Views Modality: CR Findings Reporting MD: Diamond Flowers Fellow MD: Not available Dictation Time: It Infrastructure Consultant: Not available Protective Clothing Issuer Date: EXAM DESCRIPTION: Hip,Right 2 Views CLINICAL HISTORY: 67 years Female fall with pain COMPARISON: None TECHNIQUE: AP and frog leg views of the right hip are obtained. FINDINGS: OSSEOUS: There is no evidence of acute fracture or osteolytic/osteoblastic lesions. No evidence of subluxation or dislocation. There is mild narrowing of the right hip joint which measures 3 mm superiorly associated with mild marginal osteophytosis consistent with primary osteoarthritis. There is no evidence of marginal erosive changes to suggest an inflammatory arthritis. There are degenerative changes at L5-S1. SOFT TISSUE: There is no significant soft tissue swelling or mass. Numerous calcifications in the pelvis are most likely phleboliths. No radiopaque foreign bodies. No evidence of a hip joint effusion. IMPRESSION: No acute osseous abnormalities. Primary osteoarthritis of the right hip as described. Remainder of findings as described above. Patient Name: ISAEL YOO Gender: Female Date of : 1950 Referring Physician: KAYLAH ESPINOZA Organization: [facility] Accession Number: [id number] Requested Date: March 02, 2018 12:14 Report Status: Final Requested Procedure: 1 Procedure Description: CTA Chest Modality: CT Findings Reporting MD: Cheng Sargent Fellow MD: Not available Dictation Time: It Infrastructure Consultant: Not available Protective Clothing Issuer Date: CLINICAL HISTORY: shortness of breath, elevated d-dimer COMPARISON: July 03, 2016. TECHNIQUE: CT CHEST ANGIOGRAPHY WITH IV CONTRAST on 03/02/2018 12:14 PM CLINIC DIRECTOR. MIPS reconstructions were generated. This exam was performed according to our departmental dose-optimization program, which includes automated exposure control, adjustment of the mA and/or kV according to patient size and/or use of iterative reconstruction technique. MIP images were generated. FINDINGS: Thoracic aorta is normal in course and caliber without aneurysm or dissection. Pulmonary arteries are adequately opacified without acute or chronic filling defects. The heart is mildly enlarged. Left dual-chamber pacemaker is present. There is no pericardial effusion. There are several small right hilar lymph nodes measuring up to 9 mm. Mediastinal lymph nodes are all under 1 cm. There is an intrafissural lymph node in the minor fissure measuring 5 mm. There is no pleural effusion, pleural thickening or pneumothorax. Central airways are patent. There is minimal right basilar airspace disease. There are no acute abnormalities within the limited images of the upper abdomen. There are no acute osseous findings. No suspicious bony lesions. IMPRESSION: No aortic dissection or aneurysm. No pulmonary embolus. Cardiomegaly with minimal right basilar airspace disease. This could represent pneumonia or possibly atelectatic changes - EKG/XRAY/CT EKG: Sinus, RBBB - incomplete, no ST T wave changes Departure - Departure Clinical Impression: Elevated d-dimer, Elevated troponin I level Diarrhea Qualifiers: Diarrhea type: unspecified type Qualified Code(s): R19.7 - Diarrhea, unspecified Disposition: Discharge to Home or Self Care Condition: Poor Departure Forms: ED Discharge - Pt. Copy, Patient Portal Self Enrollment Referrals: JANET GAMEZ IV, STREET CAR INSPECTOR [Primary Care Provider] - 1-2 Weeks Home Medications: Ambulatory Orders Zolpidem Tartrate [Ambien] 10 mg PO BEDTIME 11/21/15 tiZANidine [Zanaflex] 4 mg PO TID 07/03/16 Alprazolam [Xanax] 1 mg PO BID 10/07/16 Gabapentin 300 mg PO TID 10/07/16 HYDROcodone 10MG/APAP 325MG [[place] 10/325] 1 tab PO Q5H PRN 03/02/18 Losartan Potassium 50 mg PO DAILY 03/02/18 Additional Instructions: patient is leaving AGAINST MEDICAL ADVICE. She should return to the emergency room for altered LOC, chest pain, continuing of diarrhea. We have informed her that we feel like she should stay for strengthening, IV fluid, and workup for possible C. difficile toxin. Additionally, should she change her mind and agreed to treatment she should return to the emergency room. She should seek medical care from PCP on Saturday if she insists upon refusing hospitalization or emergency room treatment.
--- NOTE | 2018-03-02 11:55 | CT ---
CLINICAL HISTORY: fall, altered LOC, pain COMPARISON: None. TECHNIQUE: CT HEAD WITHOUT IV CONTRAST on 03/02/2018 10:59 AM PRODUCTION REPAIRER This exam was performed according to our departmental dose-optimization program, which includes automated exposure control, adjustment of the mA and/or kV according to patient size and/or use of iterative reconstruction technique. FINDINGS: There is no acute hemorrhage, mass effect or midline shift. Mcfarland-white differentiation is preserved. There is no hydrocephalus. There is no significant volume loss for age. There are mild patchy hypodensities within the periventricular and subcortical white matter, consistent with microangiopathic ischemic changes. The calvarium is intact. Orbits and globes are unremarkable. The paranasal sinuses are clear. Mastoid air cells are clear. IMPRESSION: No acute intracranial findings. Electronically signed by: Cheng Sargent MD 03/02/2018 11:54 AM PRODUCTION REPAIRER
--- NOTE | 2018-03-02 11:58 | RAD ---
EXAM DESCRIPTION: Femur,Right CLINICAL HISTORY: 67 years Female fall with pain COMPARISON: None TECHNIQUE: AP, lateral and oblique views of the right femur are obtained. FINDINGS: OSSEOUS: There is no evidence of acute fracture or osteolytic/osteoblastic lesions. There is no evidence of subluxation or dislocation. There is mild narrowing of the hip joint which measures 3 mm superiorly with mild marginal osteophytosis. There is no evidence of marginal erosive changes to suggest an inflammatory arthritis. There is minimal enthesopathy along the greater trochanter. SOFT TISSUE: There is no significant soft tissue swelling or mass. No evidence of significant soft tissue calcifications. No radiopaque foreign bodies. No evidence of right hip joint or suprapatellar effusions IMPRESSION: No acute osseous abnormalities. Primary osteoarthritis in the right hip Remainder of findings as described above. Electronically signed by: Diamond Flowers MD 03/02/2018 11:56 AM [facility]
--- NOTE | 2018-03-02 11:58 | CT ---
CLINICAL HISTORY: fall, altered LOC, pain COMPARISON: None. TECHNIQUE: CT CERVICAL SPINE WITHOUT IV CONTRAST on 03/02/2018 10:59 AM POLICE JUDGE This exam was performed according to our departmental dose-optimization program, which includes automated exposure control, adjustment of the mA and/or kV according to patient size and/or use of iterative reconstruction technique. FINDINGS: There is no acute fracture. There is straightening of normal cervical lordosis. There is minimal upper cervical spine right-sided facet arthritis. There is mild narrowing of the C5-6 disc. Vertebral body heights are preserved. Soft tissues are unremarkable. IMPRESSION: No acute fracture or subluxation. Electronically signed by: Cheng Sargent MD 03/02/2018 11:57 AM POLICE JUDGE
--- NOTE | 2018-03-02 12:00 | RAD ---
EXAM DESCRIPTION: Hip,Right 2 Views CLINICAL HISTORY: 67 years Female fall with pain COMPARISON: None TECHNIQUE: AP and frog leg views of the right hip are obtained. FINDINGS: OSSEOUS: There is no evidence of acute fracture or osteolytic/osteoblastic lesions. No evidence of subluxation or dislocation. There is mild narrowing of the right hip joint which measures 3 mm superiorly associated with mild marginal osteophytosis consistent with primary osteoarthritis. There is no evidence of marginal erosive changes to suggest an inflammatory arthritis. There are degenerative changes at L5-S1. SOFT TISSUE: There is no significant soft tissue swelling or mass. Numerous calcifications in the pelvis are most likely phleboliths. No radiopaque foreign bodies. No evidence of a hip joint effusion. IMPRESSION: No acute osseous abnormalities. Primary osteoarthritis of the right hip as described. Remainder of findings as described above. Electronically signed by: Diamond Flowers MD 03/02/2018 11:58 AM [facility]
--- NOTE | 2018-03-02 12:54 | CT ---
CLINICAL HISTORY: shortness of breath, elevated d-dimer COMPARISON: July 03, 2016. TECHNIQUE: CT CHEST ANGIOGRAPHY WITH IV CONTRAST on 03/02/2018 12:14 PM STOCK HOUSE WORKER. MIPS reconstructions were generated. This exam was performed according to our departmental dose-optimization program, which includes automated exposure control, adjustment of the mA and/or kV according to patient size and/or use of iterative reconstruction technique. MIP images were generated. FINDINGS: Thoracic aorta is normal in course and caliber without aneurysm or dissection. Pulmonary arteries are adequately opacified without acute or chronic filling defects. The heart is mildly enlarged. Left dual-chamber pacemaker is present. There is no pericardial effusion. There are several small right hilar lymph nodes measuring up to 9 mm. Mediastinal lymph nodes are all under 1 cm. There is an intrafissural lymph node in the minor fissure measuring 5 mm. There is no pleural effusion, pleural thickening or pneumothorax. Central airways are patent. There is minimal right basilar airspace disease. There are no acute abnormalities within the limited images of the upper abdomen. There are no acute osseous findings. No suspicious bony lesions. IMPRESSION: No aortic dissection or aneurysm. No pulmonary embolus. Cardiomegaly with minimal right basilar airspace disease. This could represent pneumonia or possibly atelectatic changes. Electronically signed by: Cheng Sargent MD 03/02/2018 12:53 PM STOCK HOUSE WORKER
[2018-03-02 13:41] VITALS: BP 147/80
[2018-03-02 14:03] VITALS: O2SAT 90
== END 2018-03-02 14:03 | disposition left against medical advice (07) ==
LOC: ER 10:19
DX: R19.7 Diarrhea, unspecified (principal); R79.89 Other specified abnormal findings of blood chemistry; R11.2 Nausea with vomiting, unspecified; I45.10 Unspecified right bundle-branch block; I51.7 Cardiomegaly; R53.1 Weakness; R53.83 Other fatigue; R05 Cough; M16.11 Unilateral primary osteoarthritis, right hip; I10 Essential (primary) hypertension; I25.10 Atherosclerotic heart disease of native coronary artery without angina pectoris; K21.9 Gastro-esophageal reflux disease without esophagitis; Z53.29 Procedure and treatment not carried out because of patient's decision for other reasons; Z86.711 Personal history of pulmonary embolism; Z87.01 Personal history of pneumonia (recurrent); Z95.0 Presence of cardiac pacemaker; Z79.899 Other long term (current) drug therapy; Z88.0 Allergy status to penicillin; Z88.1 Allergy status to other antibiotic agents; Z88.8 Allergy status to other drugs, medicaments and biological substances
CPT/HCPCS: 36415; 70450; 71275; 72125; 73502; 73551; 80053; 81001; 82550; 82553; 83605; 83880; 84484; 85025; 85379; 87040; 93005; J7030

== ENCOUNTER → 2018-03-06 | Outpatient (CLI) | payer MEDICARE, OTHER | LOC: LAB.O 13:10 | PROVIDERS: ATTEND Nurse Practitioner Family | DX: R19.7 Diarrhea, unspecified (principal) ==

== ENCOUNTER 2018-04-19 14:34 | Emergency (ER) | payer MEDICARE, OTHER ==
--- NOTE | 2018-04-19 16:10 | RAD ---
EXAM:Chest,2 Views CLINICAL INDICATION: Chest pain COMPARISON: 11/01/2017 FINDINGS:Two views of the chest were obtained. The heart size is normal. A left-sided pacemaker is noted. The pulmonary vascularity is unremarkable. The lungs are clear. There is no consolidation, infiltrate, pleural effusion, or pneumothorax. IMPRESSION: No evidence of active pulmonary disease. Electronically signed by: Mich Beltran MD 04/19/2018 4:08 PM DATA SME
--- NOTE | 2018-04-19 16:21 | ED.PDOC ---
History of Present Illness - General Chief Complaint: Cardiovascular Problem Stated Complaint: chest pain radiating to lerft arm Time Seen by Provider: 04/19/18 15:09 Source: patient Exam Limitations: no limitations - History of Present Illness Initial Comments: patient comes in today for chest pain. Patient states she was seen back in February with elevation of d-dimer and troponin and refused transfer at that time and went home AGAINST MEDICAL ADVICE. Patient states she's really felt silk ever since then. Patient had fatigue and lethargy primarily. Patient states the chest pain has been there pretty consistently on a daily basis but has been much worse the last 6 days. Today patient states she woke up at 2 AM with chest pain that was left sided dull pressure-like without radiation and with some nausea. She denies any diaphoresis and she did try nitroglycerin 3 at home with no change in the pain. Patient states she just still feels horrible from February. Timing/Duration: 1 week Severity/Quality: severe, aching, pressure Location: substernal Chest Pain Radiation: no radiation Activities at Onset: rest Prior Chest Pain/Cardiac Workup: heart attack Improving Factors: nothing Worsening Factors: nothing Nitro Today/Relief: 0.4 mg x 3, provided at home - with no improvement Aspirin Treatment Today: 325 mg x 1, provided at home Associated Symptoms: fever/chills, heartburn, nausea/vomiting Allergies/Adverse Reactions: Allergies CI Pigment Blue 63 [From Cymbalta] Allergy (Verified 04/19/18 15:20) Anaphylaxis Ciprofloxacin [From Cipro] Allergy (Verified 03/02/18 10:53) Duloxetine [From Cymbalta] Allergy (Verified 04/19/18 15:20) Anaphylaxis Fentanyl Allergy (Verified 10/07/16 21:32) Ketorolac Tromethamine [From Toradol] Allergy (Verified 10/07/16 21:32) Hives shortness Penicillin G Allergy (Verified 10/07/16 21:32) Other welps Ondansetron [From Zofran] Adverse Reaction (Verified 10/07/16 21:32) Other Pt claims this causes her to "blister" Home Medications: Ambulatory Orders Zolpidem Tartrate [Ambien] 10 mg PO BEDTIME 11/21/15 tiZANidine [Zanaflex] 4 mg PO TID 07/03/16 Alprazolam [Xanax] 1 mg PO BID 10/07/16 Gabapentin 300 mg PO TID 10/07/16 HYDROcodone 10MG/APAP 325MG [[place] 10/325] 1 tab PO Q5H PRN 03/02/18 Losartan Potassium 50 mg PO DAILY 03/02/18 Review of Systems - Review of Systems Constitutional: States: chills, malaise, weakness EENTM: States: nose congestion. Denies: eye pain, ear pain, throat pain Respiratory: States: cough. Denies: short of breath, wheezing Cardiology: States: chest pain. Denies: edema, palpitations, syncope Gastrointestinal/Abdominal: States: nausea. Denies: abdominal pain, constipation, diarrhea, vomiting Genitourinary: States: no symptoms reported Musculoskeletal: States: see HPI Skin: States: no symptoms reported Neurological: States: no symptoms reported Past Medical History (General) - Patient Medical History Hx Seizures: Yes Hx Stroke: - undiagnosed, pt does not know but thinks maybe Hx Dementia: No Hx Asthma: No Hx of COPD: Yes Hx Cardiac Disorders: Yes - [place] Hx Congestive Heart Failure: No Hx Pacemaker: Yes Hx Hypertension: Yes Hx Thyroid Disease: No Hx Diabetes: No Hx Gastroesophageal Reflux: Yes Hx Renal Disease: No Hx Cancer: No Hx of HIV: No Hx Hepatitis C: No Hx MRSA: No MRSA Source:: Wound Surgical History: appendectomy, cholecystectomy, Hysterectomy - Vaccination History Hx Tetanus, Diphtheria Vaccination: Yes Hx Influenza Vaccination: No Hx Pneumococcal Vaccination: Yes Immunizations Up to Date: Yes - Social History Hx Tobacco Use: No Hx Chewing Tobacco Use: No Hx Alcohol Use: Yes - occasional with dinner Hx Substance Use: No Hx Substance Use Treatment: No Hx Depression: No Hx Physical Abuse: No Hx Emotional Abuse: No Hx Suspected Abuse: No - Female History Patient is a Female of Child Bearing Age (10 -59 yrs old): No Patient : No Family Medical History - Family History Father Living Status: Cause of : copd Mother Living Status: Cause of : colon ca Son Name: mother Living Status: Age at (years of age): 54 Cause of : colon cancer Hx Family Asthma: No Hx Family Congestive Heart Failure: No Hx Family Hypertension: Yes Hx Family Stroke: Yes Hx Cardiac Disease: No Hx Family Diabetes: No Hx Family Cancer: Yes Hx Family;Other: Crohn's Physical Exam - Physical Exam General Appearance: Alert, Frail, No apparent distress Eyes, Ears, Nose, Throat Exam: PERRL/EOMI, normal ENT inspection, TMs normal, pharynx normal Neck: non-tender, full range of motion, supple, normal inspection, carotid bruit Respiratory: chest non-tender, lungs clear, normal breath sounds, no respiratory distress Cardiovascular/Chest: normal peripheral pulses, regular rate, rhythm, no edema, no gallop, no JVD, no murmur Peripheral Pulses: radial,right: 2+, radial,left: 2+ Gastrointestinal/Abdominal: normal bowel sounds, non tender, soft Extremity: normal range of motion, non-tender, normal inspection Neurologic: alert, oriented x 3 Progress - Progress Progress: 04/19/18 17:09 patient relieved that cardiac enzymes are negative and ready to go home. She has plans to follow up with Cardiology already for risk stratification prior to spinal injections. - Results/Orders Results/Orders: Laboratory Results WBC 7.8 K/mm3 (4.8-10.8) 04/19/18 15:11 RBC 5.02 M/mm3 (4.20-5.40) 04/19/18 15:11 Hgb 14.9 gm/dL (12.0-16.0) 04/19/18 15:11 Hct 46.5 % (36.0-47.0) 04/19/18 15:11 MCV 92.7 fl (81.0-99.0) 04/19/18 15:11 MCH 29.6 pg (27.0-31.0) 04/19/18 15:11 MCHC 31.9 g/dL (33.0-37.0) L 04/19/18 15:11 RDW 14.0 % (11.5-14.5) 04/19/18 15:11 Plt Count 125 K/mm3 (130-400) L 04/19/18 15:11 MPV 10.5 fl (7.40-10.4) H 04/19/18 15:11 Absolute Neuts (auto) 4.10 K/uL (1.8-6.8) 04/19/18 15:11 Absolute Lymphs (auto) 2.90 K/uL (1.0-3.4) 04/19/18 15:11 Absolute Monos (auto) 0.50 K/uL (0.2-0.8) 04/19/18 15:11 Absolute Eos (auto) 0.30 K/uL (0.0-0.4) 04/19/18 15:11 Absolute Basos (auto) 0.10 K/uL (0.0-0.1) 04/19/18 15:11 Neutrophils % 52.9 % (42.0-78.0) 04/19/18 15:11 Lymphocytes % 36.7 % (20.0-50.0) 04/19/18 15:11 Monocytes % 6.2 % (2.0-9.0) 04/19/18 15:11 Eosinophils % 3.3 % (1.0-5.0) 04/19/18 15:11 Basophils % 0.9 % (0.0-2.0) 04/19/18 15:11 Sodium 138 mmol/L (135-145) 04/19/18 15:11 Potassium 3.9 mmol/L (3.6-5.0) 04/19/18 15:11 Chloride 105 mmol/L (101-111) 04/19/18 15:11 Carbon Dioxide 24 mmol/L (21-31) 04/19/18 15:11 Anion Gap 12.9 (12-18) 04/19/18 15:11 BUN 12 mg/dL (7-18) 04/19/18 15:11 Creatinine 0.65 mg/dL (0.6-1.3) 04/19/18 15:11 BUN/Creatinine Ratio 18.5 (10-20) 04/19/18 15:11 Random Glucose 77 mg/dL (70-105) 04/19/18 15:11 Serum Osmolality 274.2 mOsm/L (275-295) L 04/19/18 15:11 Calcium 8.6 mg/dL (8.4-10.2) 04/19/18 15:11 Total Bilirubin 0.9 mg/dL (0.2-1.0) 04/19/18 15:11 AST 34 IU/L (10-42) 04/19/18 15:11 ALT 20 IU/L (10-60) 04/19/18 15:11 Alkaline Phosphatase 103 IU/L (42-121) 04/19/18 15:11 Creatine Kinase 65 IU/L (26-140) 04/19/18 15:11 CK-MB (CK-2) 1.9 ng/mL (0.0-4.4) 04/19/18 15:11 CK-MB (CK-2) % Not Reportable 04/19/18 15:11 Troponin I < 0.02 ng/mL (0.01-0.05) 04/19/18 15:11 Serum Total Protein 7.1 gm/dL (6.4-8.2) 04/19/18 15:11 Albumin 3.9 g/dl (3.2-5.5) 04/19/18 15:11 Globulin 3.2 gm/dL (2.3-3.5) 04/19/18 15:11 Albumin/Globulin Ratio 1.2 (1.1-1.9) 04/19/18 15:11 - EKG/XRAY/CT EKG: Sinus, nonspecific ST T wave Chg Comments: no change from 07/03/16 Departure - Departure Clinical Impression: Atypical chest pain Disposition: Discharge to Home or Self Care Condition: Fair Departure Forms: ED Discharge - Pt. Copy, Patient Portal Self Enrollment Instructions: DI for Chest Pain Referrals: JANET GAMEZ IV, ENGINEERING GROUP LEADER [Primary Care Provider] - 1-2 Weeks Home Medications: Ambulatory Orders Zolpidem Tartrate [Ambien] 10 mg PO BEDTIME 11/21/15 tiZANidine [Zanaflex] 4 mg PO TID 07/03/16 Alprazolam [Xanax] 1 mg PO BID 10/07/16 Gabapentin 300 mg PO TID 10/07/16 HYDROcodone 10MG/APAP 325MG [[place] 10/325] 1 tab PO Q5H PRN 03/02/18 Losartan Potassium 50 mg PO DAILY 03/02/18 Additional Instructions: follow up with PCP on Saturday to arrange cardiology for risk stratification. Return to Er for change in pain, shortness of breath, altered LOC
[2018-04-19 16:51] VITALS: O2SAT 97
[2018-04-19 17:19] VITALS: BP 150/88; TEMP 98
== END 2018-04-19 17:19 | disposition home or self-care (01) ==
LOC: ER 14:34
DX: R07.89 Other chest pain (principal); I25.2 Old myocardial infarction; I10 Essential (primary) hypertension; K21.9 Gastro-esophageal reflux disease without esophagitis; J44.9 Chronic obstructive pulmonary disease, unspecified; Z95.0 Presence of cardiac pacemaker; Z79.899 Other long term (current) drug therapy; Z88.8 Allergy status to other drugs, medicaments and biological substances; Z88.0 Allergy status to penicillin; Z88.1 Allergy status to other antibiotic agents

== ENCOUNTER 2018-05-23 18:02 | Emergency (ER) | payer MEDICARE, OTHER ==
--- NOTE | 2018-05-23 18:23 | ED.PDOC ---
History of Present Illness - General Chief Complaint: Chest Pain/[place] Stated Complaint: 1 day history of chest pain Time Seen by Provider: 05/23/18 18:05 Source: patient Exam Limitations: no limitations - History of Present Illness Initial Comments: Patient comes in with left sided crushing chest pain that has been occurring all day. She has had this before and was seen in ER with negative cardiac enzymes and told to follow up with cardiology. She had said she had an appointment at that time but now states she still has not seen them. She has nitro at home and started taking it this morning with onset of chest pain. It would make the pain go away but come back several hours later. She has taken a total of 6 with last at 4 pm. She also states she is having some BRBPR with each bowel movement today. She states she has a long history of colitis. She has diffuse abdominal pain with some emesis. She states after having bout of emesis she wiped her mouth and there was some blood but she had a nose bleed at the same time. She has no current bleeding at presentation. Timing/Duration: 7-24 hours Severity/Quality: severe, pressure Location: substernal - L sided Chest Pain Radiation: no radiation Activities at Onset: rest Prior Chest Pain/Cardiac Workup: no prior cardiac workup Improving Factors: medication - nitro Worsening Factors: nothing Nitro Today/Relief: 0.4 mg x 4 - x 6 , provided at home Aspirin Treatment Today: no aspirin today Associated Symptoms: abdominal pain, heartburn, nausea/vomiting Allergies/Adverse Reactions: Allergies CI Pigment Blue 63 [From Cymbalta] Allergy (Verified 04/19/18 15:20) Anaphylaxis Ciprofloxacin [From Cipro] Allergy (Verified 03/02/18 10:53) Duloxetine [From Cymbalta] Allergy (Verified 04/19/18 15:20) Anaphylaxis Fentanyl Allergy (Verified 10/07/16 21:32) Ketorolac Tromethamine [From Toradol] Allergy (Verified 10/07/16 21:32) Hives shortness Penicillin G Allergy (Verified 10/07/16 21:32) Other welps Ondansetron [From Zofran] Adverse Reaction (Verified 10/07/16 21:32) Other Pt claims this causes her to "blister" Home Medications: Ambulatory Orders Zolpidem Tartrate [Ambien] 10 mg PO BEDTIME 11/21/15 tiZANidine [Zanaflex] 4 mg PO TID 07/03/16 Alprazolam [Xanax] 1 mg PO BID 10/07/16 Gabapentin 300 mg PO TID 10/07/16 HYDROcodone 10MG/APAP 325MG [[place] 10/325] 1 tab PO Q5H PRN 03/02/18 Losartan Potassium 50 mg PO DAILY 03/02/18 amLODIPine BESYLATE [Norvasc] 5 mg PO DAILY #30 tab 05/23/18 Review of Systems - Review of Systems Constitutional: States: no symptoms reported. Denies: chills, fever EENTM: States: no symptoms reported Respiratory: States: no symptoms reported. Denies: cough, short of breath Cardiology: States: see HPI, chest pain. Denies: edema, palpitations, syncope Gastrointestinal/Abdominal: States: see HPI, abdominal pain, nausea, vomiting Genitourinary: States: no symptoms reported Past Medical History (General) - Patient Medical History Hx Seizures: Yes Hx Stroke: - undiagnosed, pt does not know but thinks maybe Hx Dementia: No Hx Asthma: No Hx of COPD: Yes Hx Cardiac Disorders: Yes - [place] Hx Congestive Heart Failure: No Hx Pacemaker: Yes Hx Hypertension: Yes Hx Thyroid Disease: No Hx Diabetes: No Hx Gastroesophageal Reflux: Yes Hx Renal Disease: No Hx Cancer: No Hx of HIV: No Hx Hepatitis C: No Hx MRSA: No MRSA Source:: Wound - Vaccination History Hx Tetanus, Diphtheria Vaccination: Yes Hx Influenza Vaccination: No Hx Pneumococcal Vaccination: Yes - Social History Hx Tobacco Use: No Hx Chewing Tobacco Use: No Hx Alcohol Use: Yes - occasional with dinner Hx Substance Use: No Hx Substance Use Treatment: No Hx Depression: No Hx Physical Abuse: No Hx Emotional Abuse: No Hx Suspected Abuse: No - Female History Patient : No Family Medical History - Family History Father Living Status: Cause of : copd Mother Living Status: Cause of : colon ca Son Name: mother Living Status: Age at (years of age): 54 Cause of : colon cancer Hx Family Asthma: No Hx Family Congestive Heart Failure: No Hx Family Hypertension: Yes Hx Family Stroke: Yes Hx Cardiac Disease: No Hx Family Diabetes: No Hx Family Cancer: Yes Hx Family;Other: Crohn's Physical Exam - Physical Exam General Appearance: Alert, Anxious, Frail Eyes, Ears, Nose, Throat Exam: PERRL/EOMI, normal ENT inspection, TMs normal, pharynx normal Neck: non-tender, full range of motion, supple, normal inspection Respiratory: chest non-tender, lungs clear, normal breath sounds, no respiratory distress Cardiovascular/Chest: normal peripheral pulses, regular rate, rhythm, no edema, no murmur Peripheral Pulses: radial,right: 2+, radial,left: 2+ Gastrointestinal/Abdominal: soft, tenderness - tender diffusely with no rebound no guarding Extremity: normal range of motion Progress - Progress Progress: 05/23/18 21:15 patient did not have improvement with GI cocktail nor nitro. However, decreasing her blood pressure and pain control did relieve the pain. She stated she had stopped her blood pressure medication several days ago secondary to the recalls and did not take her home pain medications today because she felt so bad. will start her on Norvasc and have her have close follow up. - Results/Orders Results/Orders: 05/23/18 18:15 EKG STAT 05/23/18 20:45 EKG STAT Laboratory Results WBC 12.1 K/mm3 (4.8-10.8) H 05/23/18 18:32 RBC 4.88 M/mm3 (4.20-5.40) 05/23/18 18:32 Hgb 14.6 gm/dL (12.0-16.0) 05/23/18 18:32 Hct 44.2 % (36.0-47.0) 05/23/18 18:32 MCV 90.5 fl (81.0-99.0) 05/23/18 18:32 MCH 29.8 pg (27.0-31.0) 05/23/18 18:32 MCHC 33.0 g/dL (33.0-37.0) 05/23/18 18:32 RDW 13.9 % (11.5-14.5) 05/23/18 18:32 Plt Count 158 K/mm3 (130-400) 05/23/18 18:32 MPV 8.7 fl (7.40-10.4) 05/23/18 18:32 Absolute Neuts (auto) 9.30 K/uL (1.8-6.8) H 05/23/18 18:32 Absolute Lymphs (auto) 2.00 K/uL (1.0-3.4) 05/23/18 18:32 Absolute Monos (auto) 0.60 K/uL (0.2-0.8) 05/23/18 18:32 Absolute Eos (auto) 0.00 K/uL (0.0-0.4) 05/23/18 18:32 Absolute Basos (auto) 0.10 K/uL (0.0-0.1) 05/23/18 18:32 Neutrophils % 77.3 % (42.0-78.0) 05/23/18 18:32 Lymphocytes % 16.6 % (20.0-50.0) L 05/23/18 18:32 Monocytes % 4.9 % (2.0-9.0) 05/23/18 18:32 Eosinophils % 0.3 % (1.0-5.0) L 05/23/18 18:32 Basophils % 0.9 % (0.0-2.0) 05/23/18 18:32 Sodium 138 mmol/L (135-145) 05/23/18 18:32 Potassium 4.5 mmol/L (3.6-5.0) 05/23/18 18:32 Chloride 106 mmol/L (101-111) 05/23/18 18:32 Carbon Dioxide 21 mmol/L (21-31) 05/23/18 18:32 Anion Gap 15.5 (12-18) 05/23/18 18:32 BUN 18 mg/dL (7-18) 05/23/18 18:32 Creatinine 1.17 mg/dL (0.6-1.3) 05/23/18 18:32 BUN/Creatinine Ratio 15.4 (10-20) 05/23/18 18:32 Random Glucose 108 mg/dL (70-105) H 05/23/18 18:32 Serum Osmolality 278.1 mOsm/L (275-295) 05/23/18 18:32 Calcium 8.9 mg/dL (8.4-10.2) 05/23/18 18:32 Total Bilirubin 1.3 mg/dL (0.2-1.0) H 05/23/18 18:32 AST 57 IU/L (10-42) H 05/23/18 18:32 ALT 32 IU/L (10-60) 05/23/18 18:32 Alkaline Phosphatase 108 IU/L (42-121) 05/23/18 18:32 Creatine Kinase 165 IU/L (26-140) H 05/23/18 20:50 CK-MB (CK-2) 3.4 ng/mL (0.0-4.4) 05/23/18 20:50 CK-MB (CK-2) % Not Reportable 05/23/18 20:50 Troponin I 0.02 ng/mL (0.01-0.05) 05/23/18 20:50 Serum Total Protein 7.8 gm/dL (6.4-8.2) 05/23/18 18:32 Albumin 4.1 g/dl (3.2-5.5) 05/23/18 18:32 Globulin 3.7 gm/dL (2.3-3.5) H 05/23/18 18:32 Albumin/Globulin Ratio 1.1 (1.1-1.9) 05/23/18 18:32 - EKG/XRAY/CT EKG: Sinus, Tachy, nonspecific ST T wave Chg, Changed from - improvement of abnormal T waves in the anterolateral and inferior leads Departure - Departure Clinical Impression: Hypertensive urgency Disposition: Discharge to Home or Self Care Condition: Good Departure Forms: ED Discharge - Pt. Copy, Patient Portal Self Enrollment Instructions: DI for Chest Pain Referrals: JANET GAMEZ IV, CLOTH INSPECTOR [Primary Care Provider] - 1-2 Weeks Prescriptions: amLODIPine BESYLATE [Norvasc] 5 mg PO DAILY #30 tab Home Medications: Ambulatory Orders Zolpidem Tartrate [Ambien] 10 mg PO BEDTIME 11/21/15 tiZANidine [Zanaflex] 4 mg PO TID 07/03/16 Alprazolam [Xanax] 1 mg PO BID 10/07/16 Gabapentin 300 mg PO TID 10/07/16 HYDROcodone 10MG/APAP 325MG [[place] 10/325] 1 tab PO Q5H PRN 03/02/18 Losartan Potassium 50 mg PO DAILY 03/02/18 amLODIPine BESYLATE [Norvasc] 5 mg PO DAILY #30 tab 05/23/18 Additional Instructions: follow up on Saturday in clinic to discuss hypertension medication. Return to ER for chest pain, shortness of breath
[2018-05-23] MEDS ORDERED: NITROGLYCERIN 0.4 MG 25 EA TAB SL ONE ×2 (18:25→18:29)
--- NOTE | 2018-05-23 18:38 | RAD ---
EXAM: Chest,1 View CLINICAL INDICATION: Chest pain COMPARISON: 04/19/2018 FINDINGS: A single view of the chest was obtained. The heart size is normal. The pulmonary vascularity is unremarkable. The lungs are clear. There is no consolidation, infiltrate, pleural effusion, or pneumothorax. A left-sided pacemaker is noted. IMPRESSION: No evidence of active pulmonary disease. Electronically signed by: Mich Beltran MD 05/23/2018 6:35 PM HISTOPATHOLOGY TECHNICIAN
[2018-05-23] MEDS ORDERED: ALUM & MAG HYDROX-SIMETHICONE 30 ML, LIDOCAINE VISCOUS 2% 15 ML PO ONE ×2 (18:44)
[2018-05-23] MEDS ORDERED: LIDOCAINE HCL 2% (MOUTH-THROAT) 15 ML UD ONE (18:48)
[2018-05-23] MEDS ORDERED: ALUM & MAG HYDROX-SIMETHICONE 30 ML UD ONE (18:48)
[2018-05-23 18:52] VITALS: TEMP 99.4
[2018-05-23] MEDS ORDERED: MORPHINE SULFATE INJ 10 MG/ML VIAL IV ONE ×2 (18:59→19:47)
[2018-05-23] MEDS ORDERED: ENALAPRILAT INJ 1.25 MG/ML VIAL IV ONE (20:04)
[2018-05-23] MEDS ORDERED: LABETALOL INJ 5 MG/ML VIAL IV ONE (20:30)
[2018-05-23 21:04] VITALS: BP 146/77; O2SAT 90
== END 2018-05-23 21:30 | disposition home or self-care (01) ==
LOC: ER 18:02
DX: I16.0 Hypertensive urgency (principal); R07.9 Chest pain, unspecified; R00.0 Tachycardia, unspecified; R10.84 Generalized abdominal pain; R11.2 Nausea with vomiting, unspecified; K62.5 Hemorrhage of anus and rectum; I25.2 Old myocardial infarction; R56.9 Unspecified convulsions; J44.9 Chronic obstructive pulmonary disease, unspecified; K21.9 Gastro-esophageal reflux disease without esophagitis; Z95.0 Presence of cardiac pacemaker; Z79.899 Other long term (current) drug therapy; Z88.8 Allergy status to other drugs, medicaments and biological substances; Z88.0 Allergy status to penicillin; Z88.1 Allergy status to other antibiotic agents; Z87.19 Personal history of other diseases of the digestive system
CPT/HCPCS: 36415; 71045; 80053; 82550; 82553; 84484; 85025; 93005; J2270

== ENCOUNTER 2018-05-28 06:44 | Emergency (ER) | payer MEDICARE, OTHER ==
[2018-05-28 07:10] VITALS: TEMP 94.9
--- NOTE | 2018-05-28 07:39 | RAD ---
Study: Single Frontal Radiograph of the Chest. Indication:ches pain Comparison: May 23, 2018 Impression: Cardiac pacemaker. Heart size upper limits of normal without failure. Mild bilateral basilar atelectasis versus pneumonia noted and is progressed. Follow-up to resolution recommended. No pleural effusion or pneumothorax. No acute osseous abnormality. Electronically signed by: Cas Man MD 05/28/2018 7:35 AM CDT
--- NOTE | 2018-05-28 07:43 | ED.PDOC ---
History of Present Illness - General Chief Complaint: Chest Pain/RI Stated Complaint: chest pain Time Seen by Provider: 05/28/18 07:08 Source: patient Exam Limitations: no limitations - History of Present Illness Initial Comments: Patient presents with chest pain for one hour. She says that she woke up with crushing pain at her sternum. There is radiation to the left arm. She also has had N/V since last night with her last episode being this morning. She tried getting up and walking around to improve the pain but it did not work. The pain is constant with no exacerbating nor alleviating factors. She has had two previous episodes, one was a year ago and one was 6 years ago. The first episode was an AMI and the patient went to the cardiac catheter lab at that time . She did not receive a stent but a pacemaker was implanted because she had bradycardia and it was causing her to have syncopal events She took three nitro tabs this morning and one ASA 325 mg. She does have a history of having a "clot in my lungs" that occurred at the same time as the AMI. She says that she has had dyspnea over the past day. No other complaints. Timing/Duration: 1 hour Severity: moderate Improving Factors: nothing Worsening Factors: nothing Allergies/Adverse Reactions: Allergies CI Pigment Blue 63 [From Cymbalta] Allergy (Verified 05/28/18 07:21) Anaphylaxis Ciprofloxacin [From Cipro] Allergy (Verified 05/28/18 07:21) Duloxetine [From Cymbalta] Allergy (Verified 05/28/18 07:21) Anaphylaxis Fentanyl Allergy (Verified 05/28/18 07:21) Ketorolac Tromethamine [From Toradol] Allergy (Verified 05/28/18 07:21) Hives shortness Penicillin G Allergy (Verified 05/28/18 07:21) Other welps Ondansetron [From Zofran] Adverse Reaction (Verified 05/28/18 07:21) Other Pt claims this causes her to "blister" Home Medications: Ambulatory Orders Zolpidem Tartrate [Ambien] 10 mg PO BEDTIME 11/21/15 tiZANidine [Zanaflex] 4 mg PO TID 07/03/16 Alprazolam [Xanax] 1 mg PO BID 10/07/16 Gabapentin 300 mg PO TID 10/07/16 HYDROcodone 10MG/APAP 325MG [[place] 10/325] 1 tab PO Q5H PRN 03/02/18 Losartan Potassium 50 mg PO DAILY 03/02/18 Aspirin (Buffered) 325 mg [Bufferin 325 mg] 1 ea PO PRN 05/28/18 Nitroglycerin 0.3 mg [Nitrostat] 0.3 mg SL PRN 05/28/18 Review of Systems - Review of Systems Constitutional: States: no symptoms reported EENTM: States: no symptoms reported Respiratory: States: see HPI Cardiology: States: see HPI Gastrointestinal/Abdominal: States: see HPI Genitourinary: States: no symptoms reported Musculoskeletal: States: no symptoms reported Skin: States: no symptoms reported Neurological: States: no symptoms reported Endocrine: States: no symptoms reported Hematologic/Lymphatic: States: no symptoms reported Past Medical History (General) - Patient Medical History Hx Seizures: Yes Hx Stroke: - undiagnosed, pt does not know but thinks maybe Hx Dementia: No Hx Asthma: No Hx of COPD: Yes Hx Cardiac Disorders: Yes - [place] Hx Congestive Heart Failure: No Hx Pacemaker: Yes Hx Hypertension: Yes Hx Thyroid Disease: No Hx Diabetes: No Hx Gastroesophageal Reflux: Yes Hx Renal Disease: No Hx Cancer: No Hx of HIV: No Hx Hepatitis C: No Hx MRSA: No MRSA Source:: Wound Surgical History: cholecystectomy, pacemaker, Hysterectomy - Vaccination History Hx Tetanus, Diphtheria Vaccination: Yes Hx Influenza Vaccination: No Hx Pneumococcal Vaccination: No - Social History Hx Tobacco Use: No Hx Chewing Tobacco Use: No Hx Alcohol Use: Yes - occasional with dinner Hx Substance Use: No Hx Substance Use Treatment: No Hx Depression: No Hx Physical Abuse: No Hx Emotional Abuse: No Hx Suspected Abuse: No - Female History Patient is a Female of Child Bearing Age (10 -59 yrs old): No Patient : No Family Medical History - Family History Father Living Status: Cause of : copd Mother Living Status: Cause of : colon ca Son Name: mother Living Status: Age at (years of age): 54 Cause of : colon cancer Hx Family Asthma: No Hx Family Congestive Heart Failure: No Hx Family Hypertension: Yes Hx Family Stroke: Yes Hx Cardiac Disease: No Hx Family Diabetes: No Hx Family Cancer: Yes Hx Family;Other: Crohn's Physical Exam - Physical Exam General Appearance: Alert Eye Exam: bilateral normal Ears, Nose, Throat: normal ENT inspection Neck: non-tender, full range of motion, supple Respiratory: lungs clear, normal breath sounds Cardiovascular/Chest: normal peripheral pulses, regular rate, rhythm, no edema Gastrointestinal/Abdominal: normal bowel sounds, non tender, soft Back Exam: normal inspection, no CVA tenderness Extremity: non-tender, normal inspection, no pedal edema Neurologic: no motor/sensory deficits, alert, normal mood/affect, oriented x 3 Skin Exam: normal color Lymphatic: no adenopathy Progress - Progress Progress: 05/28/18 08:32 Laboratory Tests 05/28/18 05/28/18 07:30 07:30 WBC 8.7 RBC 4.99 Hgb 15.0 Hct 45.5 MCV 91.0 MCH 30.1 MCHC 33.0 RDW 14.2 Plt Count 206 MPV 8.7 Absolute Neuts (auto) 3.50 Absolute Lymphs (auto) 4.30 H Absolute Monos (auto) 0.60 Absolute Eos (auto) 0.10 Absolute Basos (auto) 0.10 Neutrophils % 40.6 L Lymphocytes % 49.5 Monocytes % 7.1 Eosinophils % 1.5 Basophils % 1.3 PT 10.8 INR 1.08 PTT (SP) 26.5 D-Dimer, Quantitative 1.33 H* Sodium 140 Potassium 3.8 Chloride 105 Carbon Dioxide 24 Anion Gap 14.8 BUN 14 Creatinine 0.91 BUN/Creatinine Ratio 15.4 Random Glucose 100 Serum Osmolality 280.0 Calcium 9.0 Magnesium 1.9 Creatine Kinase 86 CK-MB (CK-2) 2.0 CK-MB (CK-2) % Not Reportable Troponin I < 0.02 B-Natriuretic Peptide 71.1 Chest pain did not improve in the E.D. The patient had already taken a 325 mg aspirin before arrive. Ntiroglycerin withheld due to systolic in the 90s. EKG showed inverted T waves in comparison to a previous [address] elevations/depressions. Troponin negative. This could very well be cardiac in nature and most likely unstable angina. Patient was given Plavix 150 mg po x one, Atorvastatin 80 mg po x one, Heparin 5000 IU bolus then 12 IU/Kg/hr. Beta paradise withheld due to HR in the low 60s and sbp in the 90s. Plan was discussed with the patient who voiced understanding and agreement with the plan. Dr. Pérez accepted the patient for transfer to [facility]. Departure - Departure Clinical Impression: Unstable angina Disposition: Transfer to Hospital Condition: Fair Departure Forms: ED Discharge - Pt. 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 [Primary Care Provider] - 1-2 Weeks Home Medications: Ambulatory Orders Zolpidem Tartrate [Ambien] 10 mg PO BEDTIME 11/21/15 tiZANidine [Zanaflex] 4 mg PO TID 07/03/16 Alprazolam [Xanax] 1 mg PO BID 10/07/16 Gabapentin 300 mg PO TID 10/07/16 HYDROcodone 10MG/APAP 325MG [[place] 10/325] 1 tab PO Q5H PRN 03/02/18 Losartan Potassium 50 mg PO DAILY 03/02/18 Aspirin (Buffered) 325 mg [Bufferin 325 mg] 1 ea PO PRN 05/28/18 Nitroglycerin 0.3 mg [Nitrostat] 0.3 mg SL PRN 05/28/18 Critical Care Note - Critical Care Note Total Time (mins): 90 Transfer to Outside Facility - Transfer Information Accepting Facility: [facility] Reason for Transfer: required specialist not available - Cardiology
[2018-05-28] MEDS ORDERED: ATORVASTATIN 20 MG TAB PO ONE (08:16)
[2018-05-28] MEDS ORDERED: CLOPIDOGREL 75 MG TAB PO ONE (08:16)
[2018-05-28] MEDS ORDERED: HEPARIN SODIUM (PORCINE) 5,000 U/ML VIAL IV ONE (08:17)
[2018-05-28] MEDS ORDERED: HEPARIN PREMIX 25,000 UNITS in PREMIX BAG 1 BAG IVS SCH (08:18)
[2018-05-28] MEDS ORDERED: HEPARIN PREMIX 500 ML ONE (08:22)
[2018-05-28 08:55] VITALS: BP 122/84; O2SAT 98
== END 2018-05-28 08:55 | disposition short-term general hospital (02) ==
LOC: ER 06:44
DX: I20.0 Unstable angina (principal); R11.2 Nausea with vomiting, unspecified; R06.00 Dyspnea, unspecified; J44.9 Chronic obstructive pulmonary disease, unspecified; I25.2 Old myocardial infarction; I10 Essential (primary) hypertension; K21.9 Gastro-esophageal reflux disease without esophagitis; R56.9 Unspecified convulsions; Z95.0 Presence of cardiac pacemaker; Z79.82 Long term (current) use of aspirin; Z79.899 Other long term (current) drug therapy; Z88.8 Allergy status to other drugs, medicaments and biological substances; Z88.0 Allergy status to penicillin; Z86.711 Personal history of pulmonary embolism
CPT/HCPCS: 36415; 71045; 80048; 82550; 82553; 83880; 84484; 85025; 85379; 85610; 85730; 93005; J1644

== ENCOUNTER 2018-06-02 01:23 | Emergency (ER) | payer MEDICARE, OTHER ==
--- NOTE | 2018-06-02 02:00 | ED.PDOC ---
History of Present Illness - General Chief Complaint: General Stated Complaint: nausea, pain all over Time Seen by Provider: 06/02/18 02:00 Source: family - Exam Limitations: no limitations - History of Present Illness Initial Comments: Yaquelin Eubanks 67 y/o female brought by EMS after she passed out 2x at home today while she was inside the bathroom passed out briefly for about 15 seconds witnessed by fell to the floor and helped her got up and as she was seated on the commode passed out again and fell to the floor so let her just sit on the floor until ambulance went to pick her up.She was seen [facility] 28 May 2018 was diagnosed with unstable angina and elevated d-dimer and was Transferred to [facility] for further evaluation and management and had CTA Chest- no pulmonary embolus and had serial cardiac enzymes and EKG did not show myocardial injury;her blood pressure also was uncontrolled placed on cardene drip than when she became normotensive resumed her oral antihypertensive but got hypotensive she was then given Dopamine drip.Recently discharge 30 may 2018 and was advised to follow up with agent telegrapher Dr. Lindsey 03 jun 2018.Has history of CAD but previous angiogram did not show blockage but became felicity cardic so pacemaker was placed. According to patient had not been feeling well this am just ate a tablespoon of ice cream and had pains all over. Timing/Duration: 1-3 hours Severity: moderate Improving Factors: nothing Worsening Factors: nothing Associated Symptoms: other - see hpi Allergies/Adverse Reactions: Allergies CI Pigment Blue 63 [From Cymbalta] Allergy (Verified 05/28/18 07:21) Anaphylaxis Ciprofloxacin [From Cipro] Allergy (Verified 05/28/18 07:21) Duloxetine [From Cymbalta] Allergy (Verified 05/28/18 07:21) Anaphylaxis Fentanyl Allergy (Verified 05/28/18 07:21) Ketorolac Tromethamine [From Toradol] Allergy (Verified 05/28/18 07:21) Hives shortness Penicillin G Allergy (Verified 05/28/18 07:21) Other welps Ondansetron [From Zofran] Adverse Reaction (Verified 05/28/18 07:21) Other Pt claims this causes her to "blister" Home Medications: Ambulatory Orders Zolpidem Tartrate [Ambien] 10 mg PO BEDTIME 11/21/15 tiZANidine [Zanaflex] 4 mg PO TID 07/03/16 Alprazolam [Xanax] 1 mg PO BID 10/07/16 Gabapentin 300 mg PO TID 10/07/16 HYDROcodone 10MG/APAP 325MG [[place] 10/325] 1 tab PO Q5H PRN 03/02/18 Losartan Potassium 50 mg PO DAILY 03/02/18 Aspirin (Buffered) 325 mg [Bufferin 325 mg] 1 ea PO PRN 05/28/18 Nitroglycerin 0.3 mg [Nitrostat] 0.3 mg SL PRN 05/28/18 Review of Systems - Review of Systems Constitutional: States: see HPI, malaise EENTM: States: no symptoms reported Respiratory: States: no symptoms reported Cardiology: States: see HPI Gastrointestinal/Abdominal: States: no symptoms reported Genitourinary: States: no symptoms reported Musculoskeletal: States: no symptoms reported Neurological: States: no symptoms reported Endocrine: States: no symptoms reported Hematologic/Lymphatic: States: no symptoms reported Past Medical History (General) - Patient Medical History Hx Seizures: Yes Hx Stroke: - undiagnosed, pt does not know but thinks maybe Hx Dementia: No Hx Asthma: No Hx of COPD: Yes Hx Cardiac Disorders: Yes - [place] Hx Congestive Heart Failure: No Hx Pacemaker: Yes Hx Hypertension: Yes Hx Thyroid Disease: No Hx Diabetes: No Hx Gastroesophageal Reflux: Yes Hx Renal Disease: No Hx Cancer: No Hx of HIV: No Hx Hepatitis C: No Hx MRSA: No MRSA Source:: Wound Surgical History: appendectomy, cholecystectomy, pacemaker, Hysterectomy - Vaccination History Hx Tetanus, Diphtheria Vaccination: Yes Hx Influenza Vaccination: No Hx Pneumococcal Vaccination: Yes - Social History Hx Tobacco Use: No Hx Chewing Tobacco Use: No Hx Alcohol Use: Yes - occasional with dinner Hx Substance Use: No Hx Substance Use Treatment: No Hx Depression: No Hx Physical Abuse: No Hx Emotional Abuse: No Hx Suspected Abuse: No - Female History Patient : No Family Medical History - Family History Father Living Status: Cause of : copd Mother Living Status: Cause of : colon ca Son Name: mother Living Status: Age at (years of age): 54 Cause of : colon cancer Hx Family Asthma: No Hx Family Congestive Heart Failure: No Hx Family Hypertension: Yes Hx Family Stroke: Yes Hx Cardiac Disease: No Hx Family Diabetes: No Hx Family Cancer: Yes Hx Family;Other: Crohn's Physical Exam - Physical Exam General Appearance: Anxious Eye Exam: bilateral normal Ears, Nose, Throat: normal ENT inspection Neck: full range of motion, supple, normal inspection Respiratory: chest non-tender, lungs clear, normal breath sounds Cardiovascular/Chest: normal peripheral pulses, regular rate, rhythm, no murmur Peripheral Pulses: radial,right: 2+, radial,left: 2+ Gastrointestinal/Abdominal: non tender, soft, no organomegaly Back Exam: no CVA tenderness, no vertebral tenderness Neurologic: alert, oriented x 3 Skin Exam: normal color, warm/dry Progress - Progress Progress: 06/02/18 03:55 Vital Signs - 8 hr 06/02/18 06/02/18 06/02/18 01:37 02:23 03:39 Temperature 100.5 F H Pulse Rate [ 78 75 Right] Respiratory 22 22 Rate Blood Pressure 231/129 162/108 220/98 [left] O2 Sat by Pulse 99 Oximetry 06/02/18 05:03 Vital Signs - 8 hr 06/02/18 06/02/18 06/02/18 01:37 02:23 03:39 Temperature 100.5 F H Pulse Rate [ 78 75 Right] Respiratory 22 22 Rate Blood Pressure 231/129 162/108 220/98 [left] O2 Sat by Pulse 99 Oximetry 06/02/18 06/02/18 06/02/18 04:00 04:21 04:26 Temperature Pulse Rate [ 82 90 86 Right] Respiratory 20 22 Rate Blood Pressure 194/112 216/99 168/84 [left] O2 Sat by Pulse 97 96 Oximetry 06/02/18 06/02/18 04:27 05:00 Temperature 99.2 F Pulse Rate [ 86 71 Right] Respiratory 22 20 Rate Blood Pressure 168/84 188/82 [left] O2 Sat by Pulse 96 95 Oximetry - Results/Orders Results/Orders: 06/02/18 03:15 EKG STAT Laboratory Results - last 24 hr 06/02/18 06/02/18 02:01 02:01 WBC 12.0 H RBC 5.46 H Hgb 16.2 H Hct 48.7 H MCV 89.3 MCH 29.7 MCHC 33.2 RDW 13.5 Plt Count 223 MPV 9.1 Absolute Neuts (auto) 8.60 H Absolute Lymphs (auto) 2.30 Absolute Monos (auto) 0.80 Absolute Eos (auto) 0.20 Absolute Basos (auto) 0.10 Neutrophils % 72.1 Lymphocytes % 19.4 L Monocytes % 6.3 Eosinophils % 1.5 Basophils % 0.7 PT 10.8 INR 1.08 PTT (SP) 25.0 D-Dimer, Quantitative 5.39 H* Sodium 139 Potassium 3.1 L Chloride 104 Carbon Dioxide 24 Anion Gap 14.1 BUN 11 Creatinine 0.77 BUN/Creatinine Ratio 14.3 Random Glucose 114 H Serum Osmolality 277.8 Calcium 8.8 Magnesium 1.6 L Total Bilirubin 1.2 H Direct Bilirubin 0.3 H Indirect Bilirubin 0.9 H AST 34 ALT 21 Alkaline Phosphatase 104 Creatine Kinase 84 CK-MB (CK-2) 2.6 CK-MB (CK-2) % Not Reportable Troponin I 0.03 Serum Total Protein 7.9 Albumin 4.3 - EKG/XRAY/CT Comments: HR-77 pacemaker;PVC,s XRAY: chest - no acute lung findings Departure - Departure Clinical Impression: D-dimer, elevated, Hypertensive urgency Syncopal episodes Qualifiers: Syncope type: unspecified Qualified Code(s): R55 - Syncope and collapse Chest pain Qualifiers: Chest pain type: unspecified Qualified Code(s): R07.9 - Chest pain, unspecified Time of Disposition: 05:02 Disposition: Transfer to Hospital Condition: Fair Departure Forms: ED Discharge - Pt. Copy, Patient Portal Self Enrollment Referrals: JANET GAMEZ IV, ARCHITECT IN TRAINING [Primary Care Provider] - 1-2 Weeks Home Medications: Ambulatory Orders Zolpidem Tartrate [Ambien] 10 mg PO BEDTIME 11/21/15 tiZANidine [Zanaflex] 4 mg PO TID 07/03/16 Alprazolam [Xanax] 1 mg PO BID 10/07/16 Gabapentin 300 mg PO TID 10/07/16 HYDROcodone 10MG/APAP 325MG [[place] 10/325] 1 tab PO Q5H PRN 03/02/18 Losartan Potassium 50 mg PO DAILY 03/02/18 Aspirin (Buffered) 325 mg [Bufferin 325 mg] 1 ea PO PRN 05/28/18 Nitroglycerin 0.3 mg [Nitrostat] 0.3 mg SL PRN 05/28/18 Transfer to Outside Facility - Transfer Information Accepting Provider:: Dima Patel Md Accepting Facility: [facility] Reason for Transfer: required specialist not available - agent telegrapher
[2018-06-02] MEDS ORDERED: MORPHINE SULFATE INJ 10 MG/ML VIAL IM ONE (02:01)
[2018-06-02] MEDS ORDERED: hydrALAZINE HCl 20 MG/ML VIAL IV ONE (03:50)
[2018-06-02] MEDS ORDERED: MORPHINE SULFATE INJ 10 MG/ML VIAL IV ONE ×2 (03:51→05:04)
--- NOTE | 2018-06-02 03:59 | CT ---
CLINICAL HISTORY: syncope COMPARISON: None. TECHNIQUE: CT HEAD WITHOUT IV CONTRAST on 06/02/2018 3:05 AM CDT This exam was performed according to our departmental dose-optimization program, which includes automated exposure control, adjustment of the mA and/or kV according to patient size and/or use of iterative reconstruction technique. FINDINGS: There is no acute hemorrhage, mass effect or midline shift. Mcfarland-white differentiation is preserved. There is no hydrocephalus. There is no significant volume loss for age. There are mild patchy hypodensities within the periventricular and subcortical white matter, consistent with microangiopathic ischemic changes. The calvarium is intact. Orbits and globes are unremarkable. The paranasal sinuses are clear. Mastoid air cells are clear. IMPRESSION: No acute intracranial findings. Electronically signed by: Cheng Sargent MD 06/02/2018 3:56 AM CDT
--- NOTE | 2018-06-02 03:59 | RAD ---
CLINICAL HISTORY: syncope COMPARISON: May 28, 2018. TECHNIQUE: XR CHEST 1 VIEW 06/02/2018 3:05 AM CDT FINDINGS: The heart is borderline in size. Left pacemaker is present. Lungs are clear without consolidation, atelectasis, mass or edema. There is no pleural effusion. There is no pneumothorax. There are no acute osseous findings. IMPRESSION: Clear lungs. Electronically signed by: Cheng Sargent MD 06/02/2018 3:56 AM CDT
[2018-06-02] MEDS ORDERED: PROCHLORPERAZINE INJ 10 MG/2 ML VIAL ONE (04:00)
[2018-06-02] MEDS ORDERED: PROCHLORPERAZINE INJ 10 MG/2 ML VIAL IV ONE (04:02)
[2018-06-02] MEDS ORDERED: ASPIRIN (CHEWABLE) 81 MG TAB PO ONE (04:10)
[2018-06-02] MEDS ORDERED: NITROGLYCERIN 0.4 MG 25 EA TAB SL ONE ×2 (04:12→04:13)
[2018-06-02 05:01] VITALS: BP 188/82; TEMP 99.2; O2SAT 95
== END 2018-06-02 05:23 | disposition short-term general hospital (02) ==
LOC: ER 01:23
DX: R07.9 Chest pain, unspecified (principal); R55 Syncope and collapse; R79.89 Other specified abnormal findings of blood chemistry; I16.0 Hypertensive urgency; I49.3 Ventricular premature depolarization; J44.9 Chronic obstructive pulmonary disease, unspecified; I25.2 Old myocardial infarction; K21.9 Gastro-esophageal reflux disease without esophagitis; I25.10 Atherosclerotic heart disease of native coronary artery without angina pectoris; Z95.0 Presence of cardiac pacemaker; Z79.82 Long term (current) use of aspirin; Z79.899 Other long term (current) drug therapy; Z88.8 Allergy status to other drugs, medicaments and biological substances; Z88.0 Allergy status to penicillin; Z88.1 Allergy status to other antibiotic agents
CPT/HCPCS: 36415; 70450; 71045; 80048; 80076; 82550; 82553; 84484; 85025; 85379; 85610; 85730; 87502; 93005; J0360; J0780; J2060; J2270

== ENCOUNTER 2018-06-06 16:14 | Emergency (ER) | payer MEDICARE, OTHER ==
[2018-06-06] MEDS ORDERED: ASPIRIN (CHEWABLE) 81 MG TAB PO ONE (16:32)
[2018-06-06] MEDS ORDERED: SODIUM CHLORIDE 0.9% 1000ML 1,000 ML IVS ONE (16:33)
[2018-06-06 16:36] VITALS: TEMP 97
--- NOTE | 2018-06-06 16:49 | RAD ---
EXAM DESCRIPTION: Chest,1 View CLINICAL HISTORY: chest pain COMPARISON: June 02, 2018. FINDINGS: Portable frontal view the thorax. Decreased inspiration is present. Linear opacity/atelectasis right lung base. No acute volume occupying consolidation. The heart and mediastinum is within normal limits for technique. Left chest wall battery pack for dual-lead pacemaker type device. Osseous structures are maintained. IMPRESSION: Right basilar atelectasis. Otherwise unremarkable. Electronically signed by: Kamar Dunbar MD 06/06/2018 4:46 PM CDT
--- NOTE | 2018-06-06 17:09 | ED.PDOC ---
History of Present Illness - General Chief Complaint: Chest Pain/ME Stated Complaint: low BP,Chest pain,Syncope Time Seen by Provider: 06/06/18 16:18 Source: patient, family Exam Limitations: no limitations - History of Present Illness Initial Comments: Patient presents with chest pain, a syncopal event, and varying blood pressures. She awoke at 3 am and she was having midsternal chest pain, crushing in nature, constant, non-radiating, multiple previous episodes, no exacerbating nor alleviating factors, no associated symptoms. She says this is the same as her previous episodes of chest pain. This afternoon, she was walking to the restroom and her witnessed her having a syncopal event in which she slowly went to the floor and did not strike her head. The patient has been taking her blood pressure several times today and has got systolics above 200 as well as below 80. She was discharged from [facility] 5 days ago for a similar constellation of symptoms. 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 No other complaints today. Timing/Duration: changing over time Severity: moderate Improving Factors: nothing Worsening Factors: nothing Associated Symptoms: other - as in HPI Allergies/Adverse Reactions: Allergies CI Pigment Blue 63 [From Cymbalta] Allergy (Verified 05/28/18 07:21) Anaphylaxis Ciprofloxacin [From Cipro] Allergy (Verified 05/28/18 07:21) Duloxetine [From Cymbalta] Allergy (Verified 05/28/18 07:21) Anaphylaxis Fentanyl Allergy (Verified 05/28/18 07:21) Ketorolac Tromethamine [From Toradol] Allergy (Verified 05/28/18 07:21) Hives shortness Penicillin G Allergy (Verified 05/28/18 07:21) Other welps Ondansetron [From Zofran] Adverse Reaction (Verified 05/28/18 07:21) Other Pt claims this causes her to "blister" Home Medications: Ambulatory Orders Zolpidem Tartrate [Ambien] 10 mg PO BEDTIME 11/21/15 tiZANidine [Zanaflex] 4 mg PO TID 07/03/16 Alprazolam [Xanax] 1 mg PO BID 10/07/16 Gabapentin 300 mg PO TID 10/07/16 HYDROcodone 10MG/APAP 325MG [[place] 10/325] 1 tab PO Q5H PRN 03/02/18 Losartan Potassium 50 mg PO DAILY 03/02/18 Aspirin (Buffered) 325 mg [Bufferin 325 mg] 1 ea PO PRN 05/28/18 Nitroglycerin 0.3 mg [Nitrostat] 0.3 mg SL PRN 05/28/18 Carvedilol [Coreg] 6.25 mg PO BID 06/06/18 Ciprofloxacin [Cipro] 500 mg PO BID 06/06/18 Pantoprazole Tablet [Protonix] 40 mg PO BID 06/06/18 Review of Systems - Review of Systems Constitutional: States: no symptoms reported EENTM: States: no symptoms reported Respiratory: States: no symptoms reported Cardiology: States: see HPI Gastrointestinal/Abdominal: States: no symptoms reported Genitourinary: States: no symptoms reported Musculoskeletal: States: no symptoms reported Skin: States: no symptoms reported Neurological: States: see HPI Endocrine: States: no symptoms reported Hematologic/Lymphatic: States: no symptoms reported Past Medical History (General) - Patient Medical History Hx Seizures: Yes Hx Stroke: - undiagnosed, pt does not know but thinks maybe Hx Dementia: No Hx Asthma: No Hx of COPD: Yes Hx Cardiac Disorders: Yes - ME Hx Congestive Heart Failure: No Hx Pacemaker: Yes Hx Hypertension: Yes Hx Thyroid Disease: No Hx Diabetes: No Hx Gastroesophageal Reflux: Yes Hx Renal Disease: No Hx Cancer: No Hx of HIV: No Hx Hepatitis C: No Hx MRSA: No MRSA Source:: Wound Surgical History: cholecystectomy, pacemaker, Hysterectomy - Vaccination History Hx Tetanus, Diphtheria Vaccination: Yes Hx Influenza Vaccination: No Hx Pneumococcal Vaccination: Yes - Social History Hx Tobacco Use: No Hx Chewing Tobacco Use: No Hx Alcohol Use: Yes - occasional with dinner Hx Substance Use: No Hx Substance Use Treatment: No Hx Depression: No Hx Physical Abuse: No Hx Emotional Abuse: No Hx Suspected Abuse: No - Female History Patient : No Family Medical History - Family History Father Living Status: Cause of : copd Mother Living Status: Cause of : colon ca Son Name: mother Living Status: Age at (years of age): 54 Cause of : colon cancer Hx Family Asthma: No Hx Family Congestive Heart Failure: No Hx Family Hypertension: Yes Hx Family Stroke: Yes Hx Cardiac Disease: No Hx Family Diabetes: No Hx Family Cancer: Yes Hx Family;Other: Crohn's Physical Exam - Physical Exam General Appearance: Alert Eye Exam: bilateral normal Ears, Nose, Throat: normal ENT inspection Neck: non-tender, full range of motion, supple Respiratory: lungs clear, normal breath sounds Cardiovascular/Chest: normal peripheral pulses, regular rate, rhythm, no edema Gastrointestinal/Abdominal: normal bowel sounds, non tender, soft Back Exam: normal inspection, no CVA tenderness Extremity: normal range of motion, non-tender, normal inspection 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, no motor/sensory deficits, alert, normal mood/affect, oriented x 3 Skin Exam: normal color Lymphatic: no adenopathy Progress - Progress Progress: 06/06/18 18:50 Laboratory Tests 06/06/18 06/06/18 06/06/18 17:03 17:03 17:03 WBC 8.8 RBC 4.39 Hgb 13.1 Hct 39.9 MCV 90.9 MCH 29.9 MCHC 32.9 L RDW 14.1 Plt Count 215 MPV 9.5 Absolute Neuts (auto) 4.10 Absolute Lymphs (auto) 3.90 H Absolute Monos (auto) 0.60 Absolute Eos (auto) 0.10 Absolute Basos (auto) 0.10 Neutrophils % 46.9 Lymphocytes % 44.0 Monocytes % 6.5 Eosinophils % 1.3 Basophils % 1.3 PT INR PTT (SP) Sodium 140 Potassium 3.4 L Chloride 108 Carbon Dioxide 23 Anion Gap 12.4 BUN 8 Creatinine 1.04 BUN/Creatinine Ratio 7.7 L Random Glucose 126 H Serum Osmolality 279.3 Calcium 8.1 L Magnesium Total Bilirubin 0.8 AST 34 ALT 20 Alkaline Phosphatase 71 Creatine Kinase 42 CK-MB (CK-2) 1.8 CK-MB (CK-2) % Not Reportable Troponin I < 0.02 B-Natriuretic Peptide 192.0 H Serum Total Protein 6.4 Albumin 3.6 Globulin 2.8 Albumin/Globulin Ratio 1.3 06/06/18 06/06/18 17:03 17:03 WBC RBC Hgb Hct MCV MCH MCHC RDW Plt Count MPV Absolute Neuts (auto) Absolute Lymphs (auto) Absolute Monos (auto) Absolute Eos (auto) Absolute Basos (auto) Neutrophils % Lymphocytes % Monocytes % Eosinophils % Basophils % PT 11.5 H INR 1.15 PTT (SP) 24.3 Sodium Potassium Chloride Carbon Dioxide Anion Gap BUN Creatinine BUN/Creatinine Ratio Random Glucose Serum Osmolality Calcium Magnesium 1.7 L Total Bilirubin AST ALT Alkaline Phosphatase Creatine Kinase CK-MB (CK-2) CK-MB (CK-2) % Troponin I B-Natriuretic Peptide Serum Total Protein Albumin Globulin Albumin/Globulin Ratio EKG showed inverted T waves in V2-V6 that were present on previous 2 weeks ago. Troponin negative. Patient given ASA 325 mg po x one. NS one liter IV bolus given then sbp went to 121. No laboratory signs of dehydration, however. The patient stated that the chest pain was typical for for her with no new qualities. Unlikely unstable angina. The wide variations in the patient's blood pressure along with the propensity for syncope, qualified this patient for transfer to [facility] for further cardiovascular evaluation. The plan was explained to the patient and her . Questions were elicited and answered. They both voiced understanding and agreement with the plan. Departure - Departure Clinical Impression: Syncope, Hypotension Disposition: Discharge to Home or Self Care Condition: Fair Departure Forms: ED Discharge - Pt. Copy, Patient Portal Self Enrollment Instructions: DI for Chest Pain Diet: other - NPO Activity: other - as per hospitalist Referrals: JANET GAMEZ IV, [employer] [Primary Care Provider] - 1-2 Weeks Home Medications: Ambulatory Orders Zolpidem Tartrate [Ambien] 10 mg PO BEDTIME 11/21/15 tiZANidine [Zanaflex] 4 mg PO TID 07/03/16 Alprazolam [Xanax] 1 mg PO BID 10/07/16 Gabapentin 300 mg PO TID 10/07/16 HYDROcodone 10MG/APAP 325MG [[place] 10/325] 1 tab PO Q5H PRN 03/02/18 Losartan Potassium 50 mg PO DAILY 03/02/18 Aspirin (Buffered) 325 mg [Bufferin 325 mg] 1 ea PO PRN 05/28/18 Nitroglycerin 0.3 mg [Nitrostat] 0.3 mg SL PRN 05/28/18 Carvedilol [Coreg] 6.25 mg PO BID 06/06/18 Ciprofloxacin [Cipro] 500 mg PO BID 06/06/18 Pantoprazole Tablet [Protonix] 40 mg PO BID 06/06/18
[2018-06-06 19:06] VITALS: BP 151/88; O2SAT 98
== END 2018-06-06 19:22 | disposition home or self-care (01) ==
LOC: ER 16:14
DX: R55 Syncope and collapse (principal); I95.9 Hypotension, unspecified; R07.2 Precordial pain; J44.9 Chronic obstructive pulmonary disease, unspecified; I25.2 Old myocardial infarction; I10 Essential (primary) hypertension; K21.9 Gastro-esophageal reflux disease without esophagitis; Z95.0 Presence of cardiac pacemaker; Z79.82 Long term (current) use of aspirin; Z79.899 Other long term (current) drug therapy; Z88.0 Allergy status to penicillin; Z88.8 Allergy status to other drugs, medicaments and biological substances; Z88.1 Allergy status to other antibiotic agents
CPT/HCPCS: 36415; 71045; 80053; 82550; 82553; 83735; 83880; 84484; 85025; 85610; 85730; 93005; J7030

== ENCOUNTER 2018-06-29 12:10 | Emergency (ER) | payer MEDICARE, OTHER ==
--- NOTE | 2018-06-29 12:29 | ED.PDOC ---
History of Present Illness - General Chief Complaint: General Stated Complaint: low blood pressure Time Seen by Provider: 06/29/18 12:13 Source: patient, family, EMS Exam Limitations: no limitations - History of Present Illness Initial Comments: Yaquelin Eubanks 67 y/o female brought to ER by family stating her blood pressure been low and had fallen 3 x also had dull chest pains,feeling dizzy.Had multiple ER visits and transferred to [facility]- according to family hospitalized for 25 days;No N/V,no diarrhea.Had echocardiogram-70% EF and carotid sono-no significant blockage noted done at [facility] Timing/Duration: other - 3 days Severity: moderate Improving Factors: nothing Worsening Factors: movement Associated Symptoms: other - see hpi Allergies/Adverse Reactions: Allergies CI Pigment Blue 63 [From Cymbalta] Allergy (Verified 06/29/18 13:28) Anaphylaxis Ciprofloxacin [From Cipro] Allergy (Verified 06/29/18 13:28) Duloxetine [From Cymbalta] Allergy (Verified 06/29/18 13:28) Anaphylaxis Fentanyl Allergy (Verified 06/29/18 13:28) Ketorolac Tromethamine [From Toradol] Allergy (Verified 06/29/18 13:28) Hives shortness Penicillin G Allergy (Verified 06/29/18 13:28) Other welps Tramadol Allergy (Verified 06/29/18 13:28) Other Morphine Adverse Reaction (Verified 06/29/18 13:28) Other Ondansetron [From Zofran] Adverse Reaction (Verified 06/29/18 13:28) Other Pt claims this causes her to "blister" Home Medications: Ambulatory Orders Zolpidem Tartrate [Ambien] 10 mg PO BEDTIME 11/21/15 Alprazolam [Xanax] 1 mg PO BID 10/07/16 Gabapentin 300 mg PO TID 10/07/16 HYDROcodone 10MG/APAP 325MG [[place] 10/325] 1 tab PO Q5H PRN 03/02/18 Losartan Potassium 25 mg PO BID 03/02/18 Nitroglycerin 0.3 mg [Nitrostat] 0.3 mg SL PRN 05/28/18 Carvedilol [Coreg] 6.25 mg PO BID 06/06/18 Pantoprazole Tablet [Protonix] 40 mg PO BID 06/06/18 Aspirin [Aspirin Adult Low Dose] 81 mg PO DAILY 06/29/18 Atorvastatin Calcium 40 mg PO BEDTIME 06/29/18 Review of Systems - Review of Systems Constitutional: States: no symptoms reported EENTM: States: no symptoms reported Respiratory: States: no symptoms reported Cardiology: States: see HPI, other - hypotension Gastrointestinal/Abdominal: States: no symptoms reported Genitourinary: States: no symptoms reported Musculoskeletal: States: no symptoms reported Past Medical History (General) - Patient Medical History Hx Seizures: Yes Hx Stroke: - undiagnosed, pt does not know but thinks maybe Hx Dementia: No Hx Asthma: No Hx of COPD: Yes Hx Cardiac Disorders: Yes - ID Hx Congestive Heart Failure: No Hx Pacemaker: Yes Hx Hypertension: Yes Hx Thyroid Disease: No Hx Diabetes: No Hx Gastroesophageal Reflux: Yes Hx Renal Disease: No Hx Cancer: No Hx of HIV: No Hx Hepatitis C: No Hx MRSA: No MRSA Source:: Wound Surgical History: appendectomy, cholecystectomy, pacemaker, other - hysterectomy - Vaccination History Hx Tetanus, Diphtheria Vaccination: Yes Hx Influenza Vaccination: No Hx Pneumococcal Vaccination: Yes - Social History Hx Tobacco Use: No Hx Chewing Tobacco Use: No Hx Alcohol Use: Yes - occasional with dinner Hx Substance Use: No Hx Substance Use Treatment: No Hx Depression: No Hx Physical Abuse: No Hx Emotional Abuse: No Hx Suspected Abuse: No - Female History Patient : No Family Medical History - Family History Father Living Status: Cause of : copd Mother Living Status: Cause of : colon ca Son Name: mother Living Status: Age at (years of age): 54 Cause of : colon cancer Hx Family Asthma: No Hx Family Congestive Heart Failure: No Hx Family Hypertension: Yes Hx Family Stroke: Yes Hx Cardiac Disease: No Hx Family Diabetes: No Hx Family Cancer: Yes Hx Family;Other: Crohn's Physical Exam - Physical Exam General Appearance: Alert, Comfortable, No apparent distress Ears, Nose, Throat: hearing grossly normal, normal ENT inspection Neck: supple, normal inspection Respiratory: lungs clear, normal breath sounds, no respiratory distress Cardiovascular/Chest: normal peripheral pulses, regular rate, rhythm, no murmur Peripheral Pulses: radial,right: 2+, radial,left: 2+ Gastrointestinal/Abdominal: non tender, soft, no organomegaly Extremity: no pedal edema, no calf tenderness Neurologic: alert, oriented x 3 Skin Exam: normal color, warm/dry Lymphatic: no adenopathy Progress - Progress Progress: 06/29/18 15:38 Vital Signs - 8 hr 06/29/18 06/29/18 06/29/18 12:29 12:34 13:30 Temperature 973.3 F H Pulse Rate [L 66 66 61 finger] Respiratory 18 22 Rate Blood Pressure 104/58 93/49 [R arm] O2 Sat by Pulse 100 98 Oximetry 06/29/18 14:30 Temperature Pulse Rate [L 65 finger] Respiratory 20 Rate Blood Pressure 132/73 [R arm] O2 Sat by Pulse 98 Oximetry 06/29/18 15:39 After explaining test result to patient no acute abnormalities noted and got agitated want to pull out her iv line explained drug needs to be taken one hour apart at night;Stated wants to go to [place] but explained no acute abnormalities noted her blood pressure stabilized offered admission here but refused wants to go [facility]. - Results/Orders Results/Orders: Vital Signs - 8 hr 06/29/18 06/29/18 06/29/18 12:29 12:34 13:30 Temperature 973.3 F H Pulse Rate [L 66 66 61 finger] Respiratory 18 22 Rate Blood Pressure 104/58 93/49 [R arm] O2 Sat by Pulse 100 98 Oximetry 06/29/18 14:30 Temperature Pulse Rate [L 65 finger] Respiratory 20 Rate Blood Pressure 132/73 [R arm] O2 Sat by Pulse 98 Oximetry 06/29/18 12:31 IV Care:Saline Lock per Protoc QSHIFT URINALYSIS Stat 06/29/18 15:25 CARDIAC ENZYME [employer] Stat Laboratory Results - last 24 hr 06/29/18 06/29/18 12:55 12:55 WBC 9.1 RBC 4.29 Hgb 12.9 Hct 39.3 MCV 91.7 MCH 30.1 MCHC 32.9 L RDW 14.3 Plt Count 211 MPV 9.3 Absolute Neuts (auto) 5.90 Absolute Lymphs (auto) 2.10 Absolute Monos (auto) 0.80 Absolute Eos (auto) 0.40 Absolute Basos (auto) 0.00 Neutrophils % 64.4 Lymphocytes % 22.7 Monocytes % 8.7 Eosinophils % 3.9 Basophils % 0.3 PT 10.4 INR 1.04 PTT (SP) 25.3 Sodium 137 Potassium 3.6 Chloride 108 Carbon Dioxide 18 L Anion Gap 14.6 BUN 16 Creatinine 0.70 BUN/Creatinine Ratio 22.9 H Random Glucose 116 H Serum Osmolality 276.0 Lactic Acid 1.6 Calcium 8.5 Magnesium 1.9 Total Bilirubin 0.5 Direct Bilirubin < 0.1 Indirect Bilirubin 0.4 AST 14 ALT 13 Alkaline Phosphatase 62 Creatine Kinase 20 L CK-MB (CK-2) 1.4 CK-MB (CK-2) % Not Reportable Troponin I < 0.02 Serum Total Protein 6.3 L Albumin 3.7 TSH 1.69 - EKG/XRAY/CT EKG: no ST T wave changes Comments: HR-73 Departure - Departure Clinical Impression: Hypotension due to drugs Chest pain Qualifiers: Chest pain type: unspecified Qualified Code(s): R07.9 - Chest pain, unspecified Time of Disposition: 15:43 Disposition: Left Against Medical Advice Condition: Fair Departure Forms: ED Discharge - Pt. Copy, Patient Portal Self Enrollment Referrals: JANET GAMEZ IV, [employer] [Primary Care Provider] - 1-2 Weeks Home Medications: Ambulatory Orders Zolpidem Tartrate [Ambien] 10 mg PO BEDTIME 11/21/15 Alprazolam [Xanax] 1 mg PO BID 10/07/16 Gabapentin 300 mg PO TID 10/07/16 HYDROcodone 10MG/APAP 325MG [[place] 10/325] 1 tab PO Q5H PRN 03/02/18 Losartan Potassium 25 mg PO BID 03/02/18 Nitroglycerin 0.3 mg [Nitrostat] 0.3 mg SL PRN 05/28/18 Carvedilol [Coreg] 6.25 mg PO BID 06/06/18 Pantoprazole Tablet [Protonix] 40 mg PO BID 06/06/18 Aspirin [Aspirin Adult Low Dose] 81 mg PO DAILY 06/29/18 Atorvastatin Calcium 40 mg PO BEDTIME 06/29/18 Additional Instructions: Return to ER as needed ;follow up with your primary Md 30 June 2018 for recheck
[2018-06-29] MEDS ORDERED: SODIUM CHLORIDE 0.9% 500ML 500 ML IVS ONE (12:31)
--- NOTE | 2018-06-29 13:20 | RAD ---
EXAM DESCRIPTION: XR Chest,1 View CLINICAL HISTORY: 67 years Female, pain COMPARISON: June 06, 2018. FINDINGS: Heart size appears borderline, accentuated by technique, and not significantly changed since the last exam. There is some uncoiling of the thoracic aorta and patient rotation to the left. There is minimal residual linear stranding in the right lower lung field but improvement in minor linear subsegmental atelectatic type change since the previous study. The lungs appear otherwise clear. There is relative elevation of the right hemidiaphragm. No obvious pneumothorax on this portable film. A left subclavian transvenous pacemaker is again identified. IMPRESSION: Improvement in minor linear atelectatic type changes since last exam. No radiographic evidence of significant acute cardiopulmonary disease. Electronically signed by: Vineet Mason MD 06/29/2018 1:16 PM CDT
[2018-06-29 15:31] VITALS: O2SAT 98
[2018-06-29 16:07] VITALS: BP 124/73
[2018-06-29 16:09] VITALS: TEMP 97.3
== END 2018-06-29 15:38 | disposition left against medical advice (07) ==
LOC: ER 12:10
DX: I95.2 Hypotension due to drugs (principal); R07.9 Chest pain, unspecified; J44.9 Chronic obstructive pulmonary disease, unspecified; I25.2 Old myocardial infarction; I10 Essential (primary) hypertension; K21.9 Gastro-esophageal reflux disease without esophagitis; Z53.29 Procedure and treatment not carried out because of patient's decision for other reasons; Z95.0 Presence of cardiac pacemaker; Z79.82 Long term (current) use of aspirin; Z79.899 Other long term (current) drug therapy; Z88.5 Allergy status to narcotic agent; Z88.8 Allergy status to other drugs, medicaments and biological substances; Z88.0 Allergy status to penicillin
CPT/HCPCS: 36415; 71045; 80048; 80076; 82550; 82553; 83605; 84443; 84484; 85025; 85610; 85730; 93005; J7040

== ENCOUNTER → 2018-07-21 | Outpatient (CLI) | payer MEDICARE, OTHER | LOC: BFHH 11:47 | PROVIDERS: ATTEND Nurse Practitioner Family | DX: R30.0 Dysuria (principal) ==

== ENCOUNTER 2018-07-28 17:09 | Emergency (ER) | payer MEDICARE, OTHER ==
--- NOTE | 2018-07-28 17:27 | ED.PDOC ---
History of Present Illness - General Chief Complaint: Chest Pain/OR Stated Complaint: CHEST PAIN Time Seen by Provider: 07/28/18 17:23 Source: patient Exam Limitations: no limitations - History of Present Illness Initial Comments: ACUTE ONSET OF CP, ONSET AT 630 AM, CRUSHING PAIN, 6-7/10, NO RADIATION WITH A COUGH AND SOB. SHE TOOK NTG X THREE WITH MINIMAL RELIEF. SHE IS A NON SMOKER BUT HAS HTN. Timing/Duration: 7-24 hours Severity/Quality: moderate, pressure Location: substernal Chest Pain Radiation: no radiation Activities at Onset: none Improving Factors: nothing Worsening Factors: nothing Associated Symptoms: denies symptoms Allergies/Adverse Reactions: Allergies CI Pigment Blue 63 [From Cymbalta] Allergy (Verified 06/29/18 13:28) Anaphylaxis Ciprofloxacin [From Cipro] Allergy (Verified 06/29/18 13:28) Duloxetine [From Cymbalta] Allergy (Verified 06/29/18 13:28) Anaphylaxis Ketorolac Tromethamine [From Toradol] Allergy (Verified 06/29/18 13:28) Hives shortness Penicillin G Allergy (Verified 06/29/18 13:28) Other welps Tramadol Allergy (Verified 06/29/18 13:28) Other Morphine Adverse Reaction (Verified 06/29/18 13:28) Other Ondansetron [From Zofran] Adverse Reaction (Verified 06/29/18 13:28) Other Pt claims this causes her to "blister" Home Medications: Ambulatory Orders Zolpidem Tartrate [Ambien] 10 mg PO BEDTIME 11/21/15 Alprazolam [Xanax] 1 mg PO BID 10/07/16 Gabapentin 300 mg PO TID 10/07/16 HYDROcodone 10MG/APAP 325MG [[facility] 10/325] 1 tab PO Q5H PRN 03/02/18 Losartan Potassium 25 mg PO BID 03/02/18 Nitroglycerin 0.3 mg [Nitrostat] 0.3 mg SL PRN 05/28/18 Carvedilol [Coreg] 6.25 mg PO BID 06/06/18 Pantoprazole Tablet [Protonix] 40 mg PO BID 06/06/18 Aspirin [Aspirin Adult Low Dose] 81 mg PO DAILY 06/29/18 Atorvastatin Calcium 40 mg PO BEDTIME 06/29/18 Cefdinir 300 mg PO BID #20 capsule 07/28/18 Review of Systems - Review of Systems Constitutional: States: malaise EENTM: States: no symptoms reported Respiratory: States: cough Cardiology: States: chest pain Genitourinary: States: no symptoms reported Musculoskeletal: States: no symptoms reported Skin: States: no symptoms reported Neurological: States: no symptoms reported Endocrine: States: no symptoms reported Hematologic/Lymphatic: States: no symptoms reported Past Medical History (General) - Patient Medical History Hx Seizures: Yes Hx Stroke: - undiagnosed, pt does not know but thinks maybe Hx Dementia: No Hx Asthma: No Hx of COPD: Yes Hx Cardiac Disorders: Yes - OR Hx Congestive Heart Failure: No Hx Pacemaker: Yes Hx Hypertension: Yes Hx Thyroid Disease: No Hx Diabetes: No Hx Gastroesophageal Reflux: Yes Hx Renal Disease: No Hx Cancer: No Hx of HIV: No Hx Hepatitis C: No Hx MRSA: No MRSA Source:: Wound - Vaccination History Hx Tetanus, Diphtheria Vaccination: Yes Hx Influenza Vaccination: No Hx Pneumococcal Vaccination: Yes - Social History Hx Tobacco Use: No Hx Chewing Tobacco Use: No Hx Alcohol Use: Yes - occasional with dinner Hx Substance Use: No Hx Substance Use Treatment: No Hx Depression: No Hx Physical Abuse: No Hx Emotional Abuse: No Hx Suspected Abuse: No - Female History Patient : No Family Medical History - Family History Father Living Status: Cause of : copd Mother Living Status: Cause of : colon ca Son Name: mother Living Status: Age at (years of age): 54 Cause of : colon cancer Hx Family Asthma: No Hx Family Congestive Heart Failure: No Hx Family Hypertension: Yes Hx Family Stroke: Yes Hx Cardiac Disease: No Hx Family Diabetes: No Hx Family Cancer: Yes Hx Family;Other: Crohn's Physical Exam - Physical Exam General Appearance: Alert, Well Developed, Well Groomed, Well Hydrated, Well Nourished Eyes, Ears, Nose, Throat Exam: PERRL/EOMI, normal ENT inspection Neck: non-tender, full range of motion, supple, normal inspection Respiratory: chest non-tender, lungs clear, normal breath sounds, no respiratory distress, no accessory muscle use Cardiovascular/Chest: normal peripheral pulses, regular rate, rhythm, no edema, no gallop, no JVD, no murmur Peripheral Pulses: radial,right: 2+, radial,left: 2+ Gastrointestinal/Abdominal: normal bowel sounds, non tender, soft, no organomegaly, no pulsatile mass Rectal Exam: deferred Extremity: normal range of motion, non-tender, normal inspection Neurologic: maintenance technician 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 - Results/Orders Results/Orders: ekg: HR OF 77, PT INTERVAL OF 158, QRS OF 90, QTC OF 459, AXIS OF 5 DEGREES, IMPRESSION: NORMAL SINUS RHYTHM, NO ACUTE INJURY PATTERN. 07/28/18 17:30 EKG STAT 07/28/18 20:18 cefTRIAXone SODIUM [Rocephin] 1 gm Sodium Chl 0.9% 50Ml Min-Bag+ [NS 50ml MINI-BAG+] 50 ml IVPB ONCE 07/28/18 20:20 HYDROcodone 10MG/APAP 325MG [[facility] 10/325] 1 ea PO ONCE ONE Laboratory Results WBC 13.8 K/mm3 (4.8-10.8) H 07/28/18 17:50 RBC 4.03 M/mm3 (4.20-5.40) L 07/28/18 17:50 Hgb 11.9 gm/dL (12.0-16.0) L 07/28/18 17:50 Hct 37.4 % (36.0-47.0) 07/28/18 17:50 MCV 92.7 fl (81.0-99.0) 07/28/18 17:50 MCH 29.4 pg (27.0-31.0) 07/28/18 17:50 MCHC 31.7 g/dL (33.0-37.0) L 07/28/18 17:50 RDW 13.8 % (11.5-14.5) 07/28/18 17:50 Plt Count 165 K/mm3 (130-400) 07/28/18 17:50 MPV 8.8 fl (7.40-10.4) 07/28/18 17:50 Absolute Neuts (auto) 9.90 K/uL (1.8-6.8) H 07/28/18 17:50 Absolute Lymphs (auto) 2.70 K/uL (1.0-3.4) 07/28/18 17:50 Absolute Monos (auto) 0.70 K/uL (0.2-0.8) 07/28/18 17:50 Absolute Eos (auto) 0.30 K/uL (0.0-0.4) 07/28/18 17:50 Absolute Basos (auto) 0.10 K/uL (0.0-0.1) 07/28/18 17:50 Neutrophils % 71.9 % (42.0-78.0) 07/28/18 17:50 Lymphocytes % 19.7 % (20.0-50.0) L 07/28/18 17:50 Monocytes % 5.4 % (2.0-9.0) 07/28/18 17:50 Eosinophils % 2.1 % (1.0-5.0) 07/28/18 17:50 Basophils % 0.9 % (0.0-2.0) 07/28/18 17:50 Sodium 137 mmol/L (135-145) 07/28/18 17:50 Potassium 4.6 mmol/L (3.6-5.0) 07/28/18 17:50 Chloride 103 mmol/L (101-111) 07/28/18 17:50 Carbon Dioxide 26 mmol/L (21-31) 07/28/18 17:50 Anion Gap 12.6 (12-18) 07/28/18 17:50 BUN 15 mg/dL (7-18) 07/28/18 17:50 Creatinine 1.10 mg/dL (0.6-1.3) 07/28/18 17:50 BUN/Creatinine Ratio 13.6 (10-20) 07/28/18 17:50 Random Glucose 85 mg/dL (70-105) 07/28/18 17:50 Serum Osmolality 273.9 mOsm/L (275-295) L 07/28/18 17:50 Calcium 8.6 mg/dL (8.4-10.2) 07/28/18 17:50 Total Bilirubin 1.1 mg/dL (0.2-1.0) H 07/28/18 17:50 AST 36 IU/L (10-42) 07/28/18 17:50 ALT 19 IU/L (10-60) 07/28/18 17:50 Alkaline Phosphatase 110 IU/L (42-121) 07/28/18 17:50 Troponin I < 0.02 ng/mL (0.01-0.05) 07/28/18 19:46 Serum Total Protein 6.5 gm/dL (6.4-8.2) 07/28/18 17:50 Albumin 3.5 g/dl (3.2-5.5) 07/28/18 17:50 Globulin 3.0 gm/dL (2.3-3.5) 07/28/18 17:50 Albumin/Globulin Ratio 1.2 (1.1-1.9) 07/28/18 17:50 Departure - Departure Clinical Impression: Atypical chest pain Pneumonia Qualifiers: Pneumonia type: due to unspecified organism Laterality: right Lung location: lower lobe of lung Qualified Code(s): J18.1 - Lobar pneumonia, unspecified organism Time of Disposition: 20:22 Disposition: Discharge to Home or Self Care Condition: Fair Departure Forms: ED Discharge - Pt. Copy, Patient Portal Self Enrollment Instructions: Pneumonia in Adults Referrals: JANET GAMEZ IV, COMPLETIONS ENGINEER [Primary Care Provider] - 1-2 Weeks Prescriptions: Cefdinir 300 mg PO BID #20 capsule Home Medications: Ambulatory Orders Zolpidem Tartrate [Ambien] 10 mg PO BEDTIME 11/21/15 Alprazolam [Xanax] 1 mg PO BID 10/07/16 Gabapentin 300 mg PO TID 10/07/16 HYDROcodone 10MG/APAP 325MG [[facility] 10/325] 1 tab PO Q5H PRN 03/02/18 Losartan Potassium 25 mg PO BID 03/02/18 Nitroglycerin 0.3 mg [Nitrostat] 0.3 mg SL PRN 05/28/18 Carvedilol [Coreg] 6.25 mg PO BID 06/06/18 Pantoprazole Tablet [Protonix] 40 mg PO BID 06/06/18 Aspirin [Aspirin Adult Low Dose] 81 mg PO DAILY 06/29/18 Atorvastatin Calcium 40 mg PO BEDTIME 06/29/18 Cefdinir 300 mg PO BID #20 capsule 07/28/18
[2018-07-28] MEDS: fentaNYL CITRATE INJ 50 MCG/ML AMP IV ONE (17:45)
--- NOTE | 2018-07-28 17:53 | RAD ---
EXAM DESCRIPTION: Chest,1 View CLINICAL HISTORY: 67 years Female CHEST PAIN COMPARISON: 06/29/2018 FINDINGS: Cardiac size and mediastinal contour appear stable. Clear left lung. Increased density in the right lung base which may reflect infiltrate or atelectasis. No definite pneumothorax or pleural fluid. Stable pacemaker. IMPRESSION: Area of increased density in the right lung base which may reflect infiltrate versus atelectasis Electronically signed by: Amber Medrano MD 07/28/2018 5:51 PM CDT
[2018-07-28] MEDS ORDERED: cefTRIAXone SODIUM 1 GM VIAL ONE ×2 (20:20→20:39)
[2018-07-28] MEDS ORDERED: LIDOCAINE 1% 2 ML VIAL INJ ONE ×2 (20:20→20:38)
[2018-07-28] MEDS ORDERED: SODIUM CHL 0.9% 50ML MIN-BAG+ 50 ML IVPB ONE (20:21)
[2018-07-28] MEDS: HYDROcodone 10MG/APAP 325MG 1 EA TAB PO ONE (20:25)
[2018-07-28] MEDS: cefTRIAXone SODIUM 1 GM in SODIUM CHL 0.9% 50ML MIN-BAG+ 50 ML IVPB ONE (20:25)
[2018-07-28] MEDS: cefTRIAXone SODIUM 1 GM VIAL IM ONE (20:41)
[2018-07-28 20:57] VITALS: BP 131/58; TEMP 98.9; O2SAT 100
== END 2018-07-28 20:59 | disposition home or self-care (01) ==
LOC: ER 17:09
DX: R07.89 Other chest pain (principal); J18.1 Lobar pneumonia, unspecified organism; I10 Essential (primary) hypertension; R56.9 Unspecified convulsions; J44.9 Chronic obstructive pulmonary disease, unspecified; I25.2 Old myocardial infarction; K21.9 Gastro-esophageal reflux disease without esophagitis; Z95.0 Presence of cardiac pacemaker; Z88.1 Allergy status to other antibiotic agents; Z88.8 Allergy status to other drugs, medicaments and biological substances; Z88.5 Allergy status to narcotic agent; Z88.0 Allergy status to penicillin
CPT/HCPCS: 36415; 71045; 80053; 84484; 85025; 93005; J0696; J3010

== ENCOUNTER 2018-09-11 12:47 | Emergency (ER) | payer MEDICARE, OTHER ==
[2018-09-11 13:17] VITALS: TEMP 99.1
--- NOTE | 2018-09-11 13:56 | ED.PDOC ---
History of Present Illness - General Chief Complaint: General Stated Complaint: urinary retention, syncope Time Seen by Provider: 09/11/18 13:27 Source: patient Exam Limitations: no limitations - History of Present Illness Initial Comments: Yaquelin Eubanks 67 y/o female stated that she had difficulty urinating for the last 3-4 weeks and she was seen last week at [facility] wok up done no urinary bladder infection and also had bladder ultrasound no urine retention.Had also been complaining of dull chest pains non radiating no diaphoresis with multiple ER visit for this and was evaluated for this symptoms in several times but cardiac work up negative.Had also been seen 1st week of July for chest pain symptoms cardiac enzymes were negaticve EKG no ST elevations. Timing/Duration: other - see hpi Severity: moderate Improving Factors: nothing Worsening Factors: nothing Associated Symptoms: other - see hpi Allergies/Adverse Reactions: Allergies CI Pigment Blue 63 [From Cymbalta] Allergy (Verified 06/29/18 13:28) Anaphylaxis Ciprofloxacin [From Cipro] Allergy (Verified 06/29/18 13:28) Duloxetine [From Cymbalta] Allergy (Verified 06/29/18 13:28) Anaphylaxis Ketorolac Tromethamine [From Toradol] Allergy (Verified 06/29/18 13:28) Hives shortness Penicillin G Allergy (Verified 06/29/18 13:28) Other welps Tramadol Allergy (Verified 06/29/18 13:28) Other Morphine Adverse Reaction (Verified 06/29/18 13:28) Other Ondansetron [From Zofran] Adverse Reaction (Verified 06/29/18 13:28) Other Pt claims this causes her to "blister" Home Medications: Ambulatory Orders Zolpidem Tartrate [Ambien] 10 mg PO BEDTIME 11/21/15 Alprazolam [Xanax] 1 mg PO BID 10/07/16 Gabapentin 300 mg PO TID 10/07/16 HYDROcodone 10MG/APAP 325MG [[place] 10/325] 1 tab PO Q5H PRN 03/02/18 Losartan Potassium 25 mg PO BID 03/02/18 Nitroglycerin 0.3 mg [Nitrostat] 0.3 mg SL PRN 05/28/18 Carvedilol [Coreg] 6.25 mg PO BID 06/06/18 Pantoprazole Tablet [Protonix] 40 mg PO BID 06/06/18 Aspirin [Aspirin Adult Low Dose] 81 mg PO DAILY 06/29/18 Atorvastatin Calcium 40 mg PO BEDTIME 06/29/18 Cefdinir 300 mg PO BID #20 capsule 07/28/18 Bethanechol Chloride [Urecholine] 5 mg PO TID #30 tab 09/11/18 Phenazopyridine HCl [Pyridium] 200 mg PO BID #20 tab 09/11/18 Review of Systems - Review of Systems Constitutional: States: no symptoms reported EENTM: States: no symptoms reported Respiratory: States: no symptoms reported Cardiology: States: see HPI Genitourinary: States: see HPI Musculoskeletal: States: no symptoms reported Skin: States: no symptoms reported Neurological: States: no symptoms reported Endocrine: States: no symptoms reported Hematologic/Lymphatic: States: no symptoms reported All other Systems: Reviewed and Negative, No Change from Baseline Past Medical History (General) - Patient Medical History Hx Seizures: Yes Hx Stroke: - undiagnosed, pt does not know but thinks maybe Hx Dementia: No Hx Asthma: No Hx of COPD: Yes Hx Cardiac Disorders: Yes - DC Hx Congestive Heart Failure: No Hx Pacemaker: Yes Hx Hypertension: Yes Hx Thyroid Disease: No Hx Diabetes: No Hx Gastroesophageal Reflux: Yes Hx Renal Disease: No Hx Cancer: No Hx of HIV: No Hx Hepatitis C: No Hx MRSA: No MRSA Source:: Wound Surgical History: appendectomy, cholecystectomy, other - hysterectomy - Vaccination History Hx Tetanus, Diphtheria Vaccination: Yes Hx Influenza Vaccination: No Hx Pneumococcal Vaccination: Yes - Social History Hx Tobacco Use: No Hx Chewing Tobacco Use: No Hx Alcohol Use: Yes - occasional with dinner Hx Substance Use: No Hx Substance Use Treatment: No Hx Depression: No Hx Physical Abuse: No Hx Emotional Abuse: No Hx Suspected Abuse: No - Female History Patient : No Family Medical History - Family History Father Living Status: Cause of : copd Mother Living Status: Cause of : colon ca Son Name: mother Living Status: Age at (years of age): 54 Cause of : colon cancer Hx Family Asthma: No Hx Family Congestive Heart Failure: No Hx Family Hypertension: Yes Hx Family Stroke: Yes Hx Cardiac Disease: No Hx Family Diabetes: No Hx Family Cancer: Yes Hx Family;Other: Crohn's Physical Exam - Physical Exam General Appearance: Alert, Comfortable, No apparent distress Eye Exam: bilateral normal Ears, Nose, Throat: hearing grossly normal, normal ENT inspection Neck: non-tender, full range of motion, supple, normal inspection Respiratory: chest non-tender, lungs clear, normal breath sounds, no respiratory distress Cardiovascular/Chest: normal peripheral pulses, regular rate, rhythm, no murmur Peripheral Pulses: radial,right: 2+, radial,left: 2+ Gastrointestinal/Abdominal: non tender, soft, no organomegaly Back Exam: no CVA tenderness, no vertebral tenderness Extremity: no pedal edema, no calf tenderness Neurologic: alert, oriented x 3 Skin Exam: normal color, warm/dry Progress - Progress Progress: 09/11/18 14:01 Vital Signs - 8 hr 09/11/18 13:09 Temperature 99.1 F Pulse Rate [ 61 left brachial] Respiratory 16 Rate Blood Pressure 93/65 [left brachial] O2 Sat by Pulse 94 L Oximetry - Results/Orders Results/Orders: 09/11/18 13:44 Catheter:Straight .ONCE 09/11/18 13:45 IV Care:Saline Lock per Protoc QSHIFT EKG STAT Laboratory Results - last 24 hr 09/11/18 09/11/18 14:00 14:00 WBC 6.7 RBC 4.47 Hgb 13.2 Hct 40.0 MCV 89.4 MCH 29.5 MCHC 33.0 RDW 13.5 Plt Count 143 MPV 9.2 Absolute Neuts (auto) 3.20 Absolute Lymphs (auto) 2.70 Absolute Monos (auto) 0.60 Absolute Eos (auto) 0.20 Absolute Basos (auto) 0.10 Neutrophils % 47.2 Lymphocytes % 39.6 Monocytes % 8.8 Eosinophils % 3.0 Basophils % 1.4 PT 10.8 INR 1.08 PTT (SP) 21.2 L Sodium 137 Potassium 4.0 Chloride 105 Carbon Dioxide 23 Anion Gap 13.0 BUN 12 Creatinine 0.76 BUN/Creatinine Ratio 15.8 Random Glucose 127 H Serum Osmolality 275.2 Calcium 8.6 Magnesium 2.0 Total Bilirubin 0.6 Direct Bilirubin 0.1 Indirect Bilirubin 0.5 AST 65 H ALT 34 Alkaline Phosphatase 113 Creatine Kinase 44 CK-MB (CK-2) 0.9 CK-MB (CK-2) % Not Reportable Troponin I < 0.02 Serum Total Protein 6.9 Albumin 3.6 Urine Color Yellow Urine Appearance Cloudy Urine pH 6.0 Ur Specific [place] 1.020 Urine Protein Negative Urine Glucose (UA) Negative Urine Ketones Negative Urine Blood Negative Urine Nitrite Negative Urine Bilirubin Negative Urine Urobilinogen 0.2 Ur Leukocyte Esterase Negative Urine RBC 0 Urine WBC 0 Ur Epithelial Cells 0-1 Urine Bacteria 0 Discuss all test result with patient;Need to see GI specialist for her stone in distal CBD patient knows about it after talking to her but never followed ub with GI specialist;had residual urine of 450 cc after straight cath - EKG/XRAY/CT EKG: Sinus, nonspecific ST T wave Chg, Unchanged from 28 Jul 2018 Comments: HR-63 XRAY: chest - mild cardiomegaly;patchy infiltrate or atelectasis CT Ordered: Yes - abd /p-choledocholithiasis Departure - Departure Clinical Impression: Urinary retention with incomplete bladder emptying, Dysuria, Choledocholithiasis Chest pain Qualifiers: Chest pain type: unspecified Qualified Code(s): R07.9 - Chest pain, unspecified Time of Disposition: 16:17 Disposition: Discharge to Home or Self Care Condition: Fair Departure Forms: ED Discharge - Pt. Copy, Patient Portal Self Enrollment Instructions: Urinary Retention (DC), Urinary Retention Referrals: JANET GAMEZ IV THROUGH OPERATOR [Primary Care Provider] - 1-2 Weeks Prescriptions: Bethanechol Chloride [Urecholine] 5 mg PO TID #30 tab Phenazopyridine HCl [Pyridium] 200 mg PO BID #20 tab Home Medications: Ambulatory Orders Zolpidem Tartrate [Ambien] 10 mg PO BEDTIME 11/21/15 Alprazolam [Xanax] 1 mg PO BID 10/07/16 Gabapentin 300 mg PO TID 10/07/16 HYDROcodone 10MG/APAP 325MG [[place] 10/325] 1 tab PO Q5H PRN 03/02/18 Losartan Potassium 25 mg PO BID 03/02/18 Nitroglycerin 0.3 mg [Nitrostat] 0.3 mg SL PRN 05/28/18 Carvedilol [Coreg] 6.25 mg PO BID 06/06/18 Pantoprazole Tablet [Protonix] 40 mg PO BID 06/06/18 Aspirin [Aspirin Adult Low Dose] 81 mg PO DAILY 06/29/18 Atorvastatin Calcium 40 mg PO BEDTIME 06/29/18 Cefdinir 300 mg PO BID #20 capsule 07/28/18 Bethanechol Chloride [Urecholine] 5 mg PO TID #30 tab 09/11/18 Phenazopyridine HCl [Pyridium] 200 mg PO BID #20 tab 09/11/18 Additional Instructions: Keep appointment with Urologist 17 September 2018 as scheduled;Also need to make appointment with your GI specialist Continue with all home medications;follow up with primary Md 15 September 2018 for recheck
[2018-09-11] MEDS ORDERED: SODIUM CHLORIDE 0.9% 500ML 500 ML IVS ONE (13:59)
--- NOTE | 2018-09-11 14:25 | RAD ---
Study: Single Frontal Radiograph of the Chest. Indication:pain Comparison: July 28, 2018 Impression: Cardiac pacemaker. Mild cardiomegaly. Persistent patchy bibasilar opacities which could reflect pneumonia or atelectasis. Follow-up to resolution recommended. No pleural effusion or pneumothorax. No acute osseous abnormality. Electronically signed by: Cas Man MD 09/11/2018 2:23 PM CDT
--- NOTE | 2018-09-11 15:49 | CT ---
EXAM DESCRIPTION: Abdoment/Pelvis w/o Contrast CLINICAL HISTORY: 67 years Female, pain lower abdomen COMPARISON: 09 September 2018 TECHNIQUE: Transaxial images were obtained without intravenous or oral contrast media. Sagittal and coronal reconstruction was performed.This exam was performed according to our departmental dose-optimization program, which includes automated exposure control, adjustment of the mA and/or kV according to patient size and/or use of iterative reconstruction technique. FINDINGS: Minimal atelectasis is observed in the right lower lobe. A tiny nodule is observed in the right middle lobe unchanged from the previous exam. The liver and spleen are unremarkable. No biliary ductal dilatation is observed. Surgical clips are seen in the region of gallbladder fossa. The patient is post cholecystectomy. A pacing wires observed in the heart. No adrenal masses are detected. The pancreas is normal in appearance. The exam does reveal a stone in the region of the distal common bile duct ampulla. It measures 6.1 mm in diameter. The kidneys are normal in appearance. Calcific atherosclerotic changes observed in the abdominal aorta without evidence of aneurysmal dilatation. No free fluid is observed. No inguinal region abnormality is seen. The patient is post hysterectomy. Phleboliths are observed in the pelvis. No free fluid is observed. Mild degenerative changes are observed in the lumbar spine. IMPRESSION: 1. A tiny right middle lobe nodules observed unchanged from multiple prior exams. 2. Cholecystectomy. 3. A stone is observed in the region of the ampulla of the distal common bile duct. 4. Hysterectomy Electronically signed by: Adal Goddard MD 09/11/2018 3:47 PM CDT
[2018-09-11 16:23] VITALS: BP 114/68; O2SAT 96
== END 2018-09-11 16:25 | disposition home or self-care (01) ==
LOC: ER 12:47
DX: R33.9 Retention of urine, unspecified (principal); R30.0 Dysuria; K80.50 Calculus of bile duct without cholangitis or cholecystitis without obstruction; R07.9 Chest pain, unspecified; K21.9 Gastro-esophageal reflux disease without esophagitis; I10 Essential (primary) hypertension; I25.2 Old myocardial infarction; J44.9 Chronic obstructive pulmonary disease, unspecified; R56.9 Unspecified convulsions; Z95.0 Presence of cardiac pacemaker; Z90.49 Acquired absence of other specified parts of digestive tract; Z79.82 Long term (current) use of aspirin; Z79.899 Other long term (current) drug therapy; Z88.5 Allergy status to narcotic agent; Z88.0 Allergy status to penicillin; Z88.1 Allergy status to other antibiotic agents; Z88.8 Allergy status to other drugs, medicaments and biological substances
CPT/HCPCS: 36415; 71045; 74176; 80048; 80076; 81001; 82550; 82553; 84484; 85025; 85610; 85730; 93005; J7040

== ENCOUNTER 2018-09-16 11:22 | Emergency (ER) | payer MEDICARE, OTHER ==
--- NOTE | 2018-09-16 12:30 | RAD ---
EXAM DESCRIPTION: Chest,1 View CLINICAL HISTORY: 67 years Female, chest pain COMPARISON: Previous study September 11, 2018 TECHNIQUE: AP portable chest. FINDINGS: Heart size is prominent with normal pulmonary vascularity. Right hemidiaphragm is elevated. Cardiac pacer is in place. No consolidating infiltrate. No pulmonary mass or worrisome nodule. No pneumothorax or pleural effusion. Bones are unremarkable. IMPRESSION: Prominent heart without congestive failure. Electronically signed by: Royce Samano MD 09/16/2018 12:27 PM CDT
--- NOTE | 2018-09-16 13:10 | ED.PDOC ---
History of Present Illness - General Chief Complaint: Chest Pain/[place] Stated Complaint: CHEST PAIN Time Seen by Provider: 09/16/18 11:31 Source: patient Exam Limitations: no limitations - History of Present Illness Initial Comments: Yaquelin Eubanks 67 y/o female came to ER with dull chest pains since yesterday and had taken 3 sl NTG for the last 3 days stated radiated to left arm and neck sometimes wakes him up for the last 2 nights had history of OH 2013 and bradycardia at that time pacemaker was then placed.Had also nausea and got sweaty stated on arrival at ER has still tightness.Had multiple visit in ER recently. Timing/Duration: days - 2 Severity: moderate Location: central Activities at Onset: rest Prior Chest Pain/Cardiac Workup: heart attack Improving Factors: nothing Worsening Factors: nothing Nitro Today/Relief: 0.4 mg x 1, provided by ED Aspirin Treatment Today: 81 mg x 4, provided by ED Associated Symptoms: other - see hpi Allergies/Adverse Reactions: Allergies CI Pigment Blue 63 [From Cymbalta] Allergy (Verified 06/29/18 13:28) Anaphylaxis Duloxetine [From Cymbalta] Allergy (Verified 06/29/18 13:28) Anaphylaxis Ketorolac Tromethamine [From Toradol] Allergy (Verified 06/29/18 13:28) Hives shortness Penicillin G Allergy (Verified 06/29/18 13:28) Other welps Tramadol Allergy (Verified 06/29/18 13:28) Other Morphine Adverse Reaction (Verified 06/29/18 13:28) Other Ondansetron [From Zofran] Adverse Reaction (Verified 06/29/18 13:28) Other Pt claims this causes her to "blister" Home Medications: Ambulatory Orders Alprazolam [Xanax] 1 mg PO BID 10/07/16 Gabapentin 300 mg PO TID 10/07/16 HYDROcodone 10MG/APAP 325MG [[place] 10/325] 1 tab PO Q5H PRN 03/02/18 Losartan Potassium 25 mg PO BID PRN 03/02/18 Nitroglycerin 0.3 mg [Nitrostat] 0.3 mg SL PRN 05/28/18 Carvedilol [Coreg] 6.25 mg PO BID 06/06/18 Pantoprazole Tablet [Protonix] 40 mg PO BID 06/06/18 Aspirin [Aspirin Adult Low Dose] 81 mg PO DAILY 06/29/18 Atorvastatin Calcium 40 mg PO BEDTIME 06/29/18 Review of Systems - Review of Systems Constitutional: States: no symptoms reported EENTM: States: no symptoms reported Respiratory: States: no symptoms reported Cardiology: States: see HPI Gastrointestinal/Abdominal: States: no symptoms reported Genitourinary: States: no symptoms reported, other - urinary retention-has appt w/Urologist 17 September 2018 Musculoskeletal: States: no symptoms reported Skin: States: no symptoms reported All other Systems: Reviewed and Negative, No Change from Baseline Past Medical History (General) - Patient Medical History Hx Seizures: Yes Hx Stroke: - undiagnosed, pt does not know but thinks maybe Hx Dementia: No Hx Asthma: No Hx of COPD: Yes Hx Cardiac Disorders: Yes - [place] Hx Congestive Heart Failure: No Hx Pacemaker: Yes Hx Hypertension: Yes Hx Thyroid Disease: No Hx Diabetes: No Hx Gastroesophageal Reflux: Yes Hx Renal Disease: No Hx Cancer: No Hx of HIV: No Hx Hepatitis C: No Hx MRSA: No MRSA Source:: Wound Surgical History: appendectomy, cholecystectomy, pacemaker - Vaccination History Hx Tetanus, Diphtheria Vaccination: Yes Hx Influenza Vaccination: No Hx Pneumococcal Vaccination: No - Social History Hx Tobacco Use: No Hx Chewing Tobacco Use: No Hx Alcohol Use: Yes - occasional with dinner Hx Substance Use: No Hx Substance Use Treatment: No Hx Depression: No Hx Physical Abuse: No Hx Emotional Abuse: No Hx Suspected Abuse: No - Activities of Daily Living Grooming Ability: Independent Eating (Feeding) Ability: Independent Toileting Ability: Independent - Female History Patient : No Family Medical History - Family History Father Living Status: Cause of : copd Mother Living Status: Cause of : colon ca Son Name: mother Living Status: Age at (years of age): 54 Cause of : colon cancer Hx Family Asthma: No Hx Family Congestive Heart Failure: No Hx Family Hypertension: Yes Hx Family Stroke: Yes Hx Cardiac Disease: No Hx Family Diabetes: No Hx Family Cancer: Yes Hx Family;Other: Crohn's Physical Exam - Physical Exam General Appearance: Alert, Comfortable, No apparent distress Eyes, Ears, Nose, Throat Exam: normal ENT inspection, TMs normal Neck: non-tender, full range of motion, supple, normal inspection Respiratory: lungs clear, normal breath sounds, no respiratory distress Cardiovascular/Chest: normal peripheral pulses, regular rate, rhythm, no gallop, no murmur Peripheral Pulses: radial,right: 2+, radial,left: 2+ Gastrointestinal/Abdominal: normal bowel sounds, non tender, soft Extremity: no pedal edema, no calf tenderness Neurologic: alert, oriented x 3 Skin Exam: normal color, warm/dry Progress - Progress Progress: 09/16/18 13:14 Laboratory Last Values WBC 5.6 K/mm3 (4.8-10.8) 09/16/18 12:15 RBC 4.62 M/mm3 (4.20-5.40) 09/16/18 12:15 Hgb 13.6 gm/dL (12.0-16.0) 09/16/18 12:15 Hct 41.3 % (36.0-47.0) 09/16/18 12:15 MCV 89.4 fl (81.0-99.0) 09/16/18 12:15 MCH 29.4 pg (27.0-31.0) 09/16/18 12:15 MCHC 32.8 g/dL (33.0-37.0) L 09/16/18 12:15 RDW 13.7 % (11.5-14.5) 09/16/18 12:15 Plt Count 190 K/mm3 (130-400) 09/16/18 12:15 MPV 9.9 fl (7.40-10.4) 09/16/18 12:15 Absolute Neuts (auto) 3.00 K/uL (1.8-6.8) 09/16/18 12:15 Absolute Lymphs (auto) 2.00 K/uL (1.0-3.4) 09/16/18 12:15 Absolute Monos (auto) 0.40 K/uL (0.2-0.8) 09/16/18 12:15 Absolute Eos (auto) 0.20 K/uL (0.0-0.4) 09/16/18 12:15 Absolute Basos (auto) 0.00 K/uL (0.0-0.1) 09/16/18 12:15 Neutrophils % 52.8 % (42.0-78.0) 09/16/18 12:15 Lymphocytes % 36.3 % (20.0-50.0) 09/16/18 12:15 Monocytes % 6.7 % (2.0-9.0) 09/16/18 12:15 Eosinophils % 3.9 % (1.0-5.0) 09/16/18 12:15 Basophils % 0.3 % (0.0-2.0) 09/16/18 12:15 PT 11.5 SECONDS (9.0-10.9) H 09/16/18 12:15 INR 1.15 (0.9-1.15) 09/16/18 12:15 PTT (SP) 26.3 SECONDS (21.8-31.6) 09/16/18 12:15 Sodium 138 mmol/L (135-145) 09/16/18 12:15 Potassium 4.2 mmol/L (3.6-5.0) 09/16/18 12:15 Chloride 106 mmol/L (101-111) 09/16/18 12:15 Carbon Dioxide 25 mmol/L (21-31) 09/16/18 12:15 Anion Gap 11.2 (12-18) L 09/16/18 12:15 BUN 10 mg/dL (7-18) 09/16/18 12:15 Creatinine 0.74 mg/dL (0.6-1.3) 09/16/18 12:15 BUN/Creatinine Ratio 13.5 (10-20) 09/16/18 12:15 Random Glucose 124 mg/dL (70-105) H 09/16/18 12:15 Serum Osmolality 276.1 mOsm/L (275-295) 09/16/18 12:15 Calcium 8.7 mg/dL (8.4-10.2) 09/16/18 12:15 Magnesium 1.6 mg/dL (1.8-2.5) L 09/16/18 12:15 Creatine Kinase 50 IU/L (26-140) 09/16/18 12:15 Troponin I < 0.02 ng/mL (0.01-0.05) 09/16/18 12:15 B-Natriuretic Peptide 82.6 pg/ml (0-100) 09/16/18 12:15 Vital Signs - 24 hr 09/16/18 09/16/18 09/16/18 11:45 12:23 13:00 Temperature 98.9 F 98.7 F Pulse Rate [ 60 62 60 Right Brachial] Respiratory 14 12 12 Rate Blood Pressure 94/61 115/71 101/63 [Right Arm] O2 Sat by Pulse 93 L 95 97 Oximetry - Results/Orders Results/Orders: Laboratory Tests 09/16/18 09/16/18 12:15 14:24 WBC 5.6 RBC 4.62 Hgb 13.6 Hct 41.3 MCV 89.4 MCH 29.4 MCHC 32.8 L RDW 13.7 Plt Count 190 MPV 9.9 Absolute Neuts (auto) 3.00 Absolute Lymphs (auto) 2.00 Absolute Monos (auto) 0.40 Absolute Eos (auto) 0.20 Absolute Basos (auto) 0.00 Neutrophils % 52.8 Lymphocytes % 36.3 Monocytes % 6.7 Eosinophils % 3.9 Basophils % 0.3 PT 11.5 H INR 1.15 PTT (SP) 26.3 Sodium 138 Potassium 4.2 Chloride 106 Carbon Dioxide 25 Anion Gap 11.2 L BUN 10 Creatinine 0.74 BUN/Creatinine Ratio 13.5 Random Glucose 124 H Serum Osmolality 276.1 Calcium 8.7 Magnesium 1.6 L Creatine Kinase 50 CK-MB (CK-2) 1.0 CK-MB (CK-2) % Not Reportable Troponin I < 0.02 < 0.02 B-Natriuretic Peptide 82.6 Discuss case with -her general handling supervisor advised to put nitropatch and call up his office for follow up patient to call;Declined nitropatch prescription as suggested by Dr. Sewell general handling supervisor - EKG/XRAY/CT EKG: Unchanged from - 28 Jul 2018 Comments: HR-62 pacemaker XRAY: chest - prominent heart w/o chf Departure - Departure Clinical Impression: Retention of urine, unspecified Chest pain Qualifiers: Chest pain type: unspecified Qualified Code(s): R07.9 - Chest pain, unspecified Time of Disposition: 15:34 Disposition: Discharge to Home or Self Care Condition: Fair Departure Forms: ED Discharge - Pt. Copy, Patient Portal Self Enrollment Instructions: DI for Chest Pain, Urinary Retention, Urinary Retention (DC) Referrals: JANET GAMEZ IV, MACHINE OPERATOR GENERAL [Primary Care Provider] - 1-2 Weeks Home Medications: Ambulatory Orders Alprazolam [Xanax] 1 mg PO BID 10/07/16 Gabapentin 300 mg PO TID 10/07/16 HYDROcodone 10MG/APAP 325MG [[place] 10/325] 1 tab PO Q5H PRN 03/02/18 Losartan Potassium 25 mg PO BID PRN 03/02/18 Nitroglycerin 0.3 mg [Nitrostat] 0.3 mg SL PRN 05/28/18 Carvedilol [Coreg] 6.25 mg PO BID 06/06/18 Pantoprazole Tablet [Protonix] 40 mg PO BID 06/06/18 Aspirin [Aspirin Adult Low Dose] 81 mg PO DAILY 06/29/18 Atorvastatin Calcium 40 mg PO BEDTIME 06/29/18 Additional Instructions: Continue with all home medications;KEEP APPOINTMENT WITH UROLOGIST 17 September 2018 as scheduled
[2018-09-16] MEDS ORDERED: MAGNESIUM SULFATE PREMIX 2GM 2 GM in PREMIX BAG 1 BAG IVPB ONE (13:15)
[2018-09-16] MEDS ORDERED: MAGNESIUM SULFATE PREMIX 2GM 50 ML IVPB ONE (13:31)
[2018-09-16] MEDS ORDERED: SODIUM CHLORIDE 0.9% 500ML 500 ML IVS ONE (14:16)
[2018-09-16 15:19] VITALS: O2SAT 95
[2018-09-16] MEDS ORDERED: HYDROcodone 10MG/APAP 325MG 1 EA TAB PO ONE (15:31)
[2018-09-16] MEDS ORDERED: NITROGLYCERIN 0.1 MG/HR PATCH TD ONE (15:31)
[2018-09-16 16:39] VITALS: BP 122/80; TEMP 98.3
== END 2018-09-16 16:00 | disposition home or self-care (01) ==
LOC: ER 11:22
DX: R07.9 Chest pain, unspecified (principal); R33.9 Retention of urine, unspecified; R11.0 Nausea; I25.2 Old myocardial infarction; R56.9 Unspecified convulsions; J44.9 Chronic obstructive pulmonary disease, unspecified; I10 Essential (primary) hypertension; K21.9 Gastro-esophageal reflux disease without esophagitis; Z95.0 Presence of cardiac pacemaker; Z79.82 Long term (current) use of aspirin; Z79.899 Other long term (current) drug therapy; Z88.5 Allergy status to narcotic agent; Z88.8 Allergy status to other drugs, medicaments and biological substances; Z88.0 Allergy status to penicillin
CPT/HCPCS: 36415; 71045; 80048; 81001; 82550; 82553; 83880; 84484; 85025; 85610; 85730; 93005; J3475; J7040

== ENCOUNTER → 2018-09-17 | Outpatient (CLI) | payer MEDICARE, OTHER ==
--- NOTE | 2018-09-19 13:03 | CT ---
EXAM DESCRIPTION: Abdomen/Pelvis w/o Contrast: Computed Tomography. CLINICAL HISTORY: 67 years Female RIGHT FLANK PAIN COMPARISON: Abdominal CT scan without oral or IV contrast 09/11/2018. TECHNIQUE: Spiral-axial scans 2.5 x 2.5 mm intervals through the abdomen and pelvis without oral or IV contrast. Coronal and sagittal 2.0 mm reconstructions. Total Exam DLP: 1126.04 mGy-cm. This exam was performed according to our departmental CT dose-optimization program which includes automated exposure control, adjustment of the mA and/or kV according to patient size and/or use of iterative reconstruction technique; to reduce radiation dose to as low as reasonably achievable (ALARA). FINDINGS: Lung bases and pleura: Atelectasis versus scarring in the bilateral lung bases and inferior lingula, more on the right. No effusion. Pacing leads in the heart. Liver, stomach, spleen, and adrenal glands: Long axis of the right lobe 19.4 cm. Large stomach with possible small hiatal hernia. Other solid organs are negative. Pancreas, Gallbladder, and Ducts: Surgical clips in the gallbladder fossa with no fluid. Kidneys and Ureters: No radiodense stones. No hydronephrosis or perinephric fluid. Normal caliber of the ureters. No radiodense stones. Small pancreas with duct not dilated. Distended first and second segments of the duodenum with radiodense object or surgical clip on the medial wall of the duodenum near the insertion of the common bile duct. Stable since the prior study. Mesentery: No free fluid, no fatty stranding or fascial thickening, and no free air. Aorta: Minimal atherosclerotic calcification of the abdominal aorta. Calcification of the ostia of the most of the major branch vessels. Small Bowel: Minimal gas anteriorly with no air-fluid levels or distention. Terminal Ileum/Cecum: Minimal distention of the cecum by fecal material. Stable since the prior study. Normal caliber of the appendix with normal density of the surrounding fat. Colon: Moderate amount of fecal material throughout the entire colon mostly proximal two thirds. Mild redundancy of the sigmoid colon. No complications. Pelvic Organs: Urinary bladder not well distended. No radiodense stones. Surgical clips and calcifications abutting the vaginal cuff in the adnexa. No free fluid. Ovaries not well seen. Spine and Bony Pelvis: Spondylosis of the lumbar and thoracic spine. Hypertrophic acetabular bilaterally, more on the left along with margins of the femoral heads more on the right Abdominal Wall/Back Soft Tissues: Minimal fatty diastases of the umbilicus not containing bowel. Calcification upper anterior pelvis to the left of midline stable. IMPRESSION: 1. No radiodense stones in the kidneys or ureters. No hydronephrosis or hydroureter. No radiodense stones in the urinary bladder which is contracted. 2. Stable postsurgical changes in the gallbladder fossa and duodenum. No change in enlarged liver or density. No findings also stable. 3. Moderate obstipation of the colon stable. Electronically signed by: Nilson Riley MD 09/19/2018 1:00 PM CDT
== END ==
LOC: LAB.O 14:19
PROVIDERS: ATTEND Urology
DX: N23 Unspecified renal colic (principal); K59.00 Constipation, unspecified; R34 Anuria and oliguria; Z98.890 Other specified postprocedural states

== ENCOUNTER 2019-01-05 17:16 | Emergency (ER) | payer MEDICARE, OTHER ==
[2019-01-05] MEDS ORDERED: SODIUM CHLORIDE 0.9% (FLUSH) 10 ML SYG IV PRN (17:53)
[2019-01-05] MEDS ORDERED: NALOXONE HCL INJ 1 MG/ML SYG IV ONE (17:54)
[2019-01-05] MEDS ORDERED: cefTRIAXone SODIUM 1 GM in SODIUM CHL 0.9% 50ML MIN-BAG+ 50 ML IVPB ONE (17:54)
--- NOTE | 2019-01-05 18:11 | ED.PDOC ---
History of Present Illness - General Chief Complaint: Respiratory Problem Time Seen by Provider: 01/05/19 17:36 Source: patient Exam Limitations: no limitations - History of Present Illness Initial Comments: 68 y/o F presents to the ED c/o cough and generalized weakness onset 2 days ago. She reports a hx of COPD, chronic pain and was recently d/c from the [facility] 3 days ago. She denies fever/chills. She states that she has been generally weak and has come close to passing out. She denies CP, abd pain or N/V. She is not normally on home O2. She is on xanax, tizanidine, gabapentin and hydrocodone at home due to chronic pain from a fall and anxiety. Allergies/Adverse Reactions: Allergies CI Pigment Blue 63 [From Cymbalta] Allergy (Verified 06/29/18 13:28) Anaphylaxis Duloxetine [From Cymbalta] Allergy (Verified 06/29/18 13:28) Anaphylaxis Ketorolac Tromethamine [From Toradol] Allergy (Verified 06/29/18 13:28) Hives shortness Penicillin G Allergy (Verified 06/29/18 13:28) Other welps Tramadol Allergy (Verified 06/29/18 13:28) Other Morphine Adverse Reaction (Verified 06/29/18 13:28) Other Ondansetron [From Zofran] Adverse Reaction (Verified 06/29/18 13:28) Other Pt claims this causes her to "blister" Home Medications: Ambulatory Orders Alprazolam [Xanax] 1 mg PO BID 10/07/16 RX: Gabapentin 300 mg PO TID 10/07/16 HYDROcodone 10MG/APAP 325MG [[place] 10/325] 1 tab PO Q5H PRN 03/02/18 RX: Losartan Potassium 25 mg PO BID PRN 03/02/18 Nitroglycerin 0.3 mg [Nitrostat] 0.3 mg SL PRN 05/28/18 Carvedilol [Coreg] 6.25 mg PO BID 06/06/18 Pantoprazole Tablet [Protonix] 40 mg PO BID 06/06/18 Aspirin [Aspirin Adult Low Dose] 81 mg PO DAILY 06/29/18 RX: Atorvastatin Calcium 40 mg PO BEDTIME 06/29/18 Review of Systems - Review of Systems Constitutional: States: malaise. Denies: chills, fever EENTM: Denies: nose congestion, throat pain Respiratory: States: cough, short of breath Cardiology: States: syncope - near. Denies: chest pain, edema, palpitations Gastrointestinal/Abdominal: Denies: abdominal pain, diarrhea, nausea, vomiting Genitourinary: Denies: dysuria, hematuria Musculoskeletal: States: joint pain - chronic since fall, muscle pain. Denies: neck pain Skin: Denies: change in color, lesions, rash Neurological: Denies: headache, numbness, weakness Past Medical History (General) - Patient Medical History Hx Seizures: Yes Hx Stroke: - undiagnosed, pt does not know but thinks maybe Hx Dementia: No Hx Asthma: No Hx of COPD: Yes Hx Cardiac Disorders: Yes - [place] Hx Congestive Heart Failure: No Hx Pacemaker: Yes Hx Hypertension: Yes Hx Thyroid Disease: No Hx Diabetes: No Hx Gastroesophageal Reflux: Yes Hx Renal Disease: No Hx Cancer: No Hx of HIV: No Hx Hepatitis C: No Hx MRSA: No MRSA Source:: Wound - Vaccination History Hx Tetanus, Diphtheria Vaccination: Yes Hx Influenza Vaccination: No Hx Pneumococcal Vaccination: No - Social History Hx Tobacco Use: No Hx Chewing Tobacco Use: No Hx Alcohol Use: Yes - occasional with dinner Hx Substance Use: No Hx Substance Use Treatment: No Hx Depression: No Hx Physical Abuse: No Hx Emotional Abuse: No Hx Suspected Abuse: No - Female History Patient : No Family Medical History - Family History Father Living Status: Cause of : copd Mother Living Status: Cause of : colon ca Son Name: mother Living Status: Age at (years of age): 54 Cause of : colon cancer Hx Family Asthma: No Hx Family Congestive Heart Failure: No Hx Family Hypertension: Yes Hx Family Stroke: Yes Hx Cardiac Disease: No Hx Family Diabetes: No Hx Family Cancer: Yes Hx Family;Other: Crohn's Physical Exam - Physical Exam General Appearance: Other - Somnolent but arousable Eyes, Ears, Nose, Throat Exam: PERRL/EOMI, normal ENT inspection, pharynx normal Neck: full range of motion, normal inspection Respiratory: no respiratory distress, other - coarse BS and shallow respirations Cardiovascular/Chest: regular rate, rhythm, no edema Peripheral Pulses: radial,right: 2+, radial,left: 2+, dorsalis pedis,right: 2+, dorsalis pedis,left: 2+ Gastrointestinal/Abdominal: normal bowel sounds, non tender, soft Neurologic: no motor/sensory deficits, oriented x 3, other - somnolent but arousable with slow but not slurred speech. Skin Exam: normal color, warm/dry Progress - Progress Progress: 01/05/19 18:00 Pt refused ABG -I went to the room and discussed with her why I think this is necessary. I am concerned that she is very somnolent and when she is sleeping her sats drop to 88% on RA. I discussed with her my concern for hypercapnea, she stated that this was not the case. She stated that she is just sleepy because she took her xanax, tizanidine, gabapentin and norco. I discussed that all of these meds might be making her too sleepy and that this too could lead to respiratory issues. She then stated that she was just here for an XR and became very upset when I told her that I did not think that just an XR was enough of an evaluation and I strongly recommend an IV and the ABG to get a better understanding of what the situation is. She then stated that she only came here for and XR and she would not stay for anything else. She pulled off the O2, BP cuff and pulse ox and ambulated out of the room without difficulty to her significant other in the waiting room. She did stop to sign the AMA paperwork on her way out, but did not want to wait for d/c papers. She was welcomed back at anytime. 01/05/19 18:21 Departure - Departure Clinical Impression: Left against medical advice Time of Disposition: 18:10 Disposition: Left Against Medical Advice Condition: Fair Departure Forms: ED Discharge - Pt. Copy, Patient Portal Self Enrollment Referrals: JANET GAMEZ IV, FOOD SCIENCE TECHNICIAN [Primary Care Provider] - 1-2 Days Home Medications: Ambulatory Orders Alprazolam [Xanax] 1 mg PO BID 10/07/16 RX: Gabapentin 300 mg PO TID 10/07/16 HYDROcodone 10MG/APAP 325MG [[place] 10/325] 1 tab PO Q5H PRN 03/02/18 RX: Losartan Potassium 25 mg PO BID PRN 03/02/18 Nitroglycerin 0.3 mg [Nitrostat] 0.3 mg SL PRN 05/28/18 Carvedilol [Coreg] 6.25 mg PO BID 06/06/18 Pantoprazole Tablet [Protonix] 40 mg PO BID 06/06/18 Aspirin [Aspirin Adult Low Dose] 81 mg PO DAILY 06/29/18 RX: Atorvastatin Calcium 40 mg PO BEDTIME 06/29/18
[2019-01-05 18:36] VITALS: BP 120/53
[2019-01-10 09:34] VITALS: O2SAT 94
== END 2019-01-05 17:53 | disposition left against medical advice (07) ==
LOC: ER 17:16
DX: R05 Cough (principal); R53.1 Weakness; G89.29 Other chronic pain; F41.9 Anxiety disorder, unspecified; R56.9 Unspecified convulsions; J44.9 Chronic obstructive pulmonary disease, unspecified; I25.2 Old myocardial infarction; I10 Essential (primary) hypertension; K21.9 Gastro-esophageal reflux disease without esophagitis; Z53.29 Procedure and treatment not carried out because of patient's decision for other reasons; Z95.0 Presence of cardiac pacemaker; Z79.899 Other long term (current) drug therapy; Z79.82 Long term (current) use of aspirin; Z88.8 Allergy status to other drugs, medicaments and biological substances; Z88.0 Allergy status to penicillin; Z88.5 Allergy status to narcotic agent

== ENCOUNTER → 2019-01-19 | Outpatient (CLI) | payer MEDICARE, OTHER | LOC: LAB.O 12:03 | PROVIDERS: ATTEND Internal Medicine Gastroenterology | DX: R19.7 Diarrhea, unspecified (principal) ==

== ENCOUNTER → 2019-02-10 | Outpatient (CLI) | payer MEDICARE, OTHER ==
--- NOTE | 2019-02-10 20:33 | CT ---
EXAM DESCRIPTION: Lumbar Spine: Computed Tomography. CLINICAL HISTORY: 68 years Female RADICULOPATHY LUMBAR REGION COMPARISON: CT abdomen and pelvis September 2018. Lumbar spine radiograph 07 September 2016. TECHNIQUE: Spiral, axial 2 x 3 mm scans through the lumbarspine without contrast. Coronal and sagittal 2.0 mm Reconstructions. Total Exam DLP: 570.57 mGy-cm. This exam was performed according to our departmental dose-optimization program which includes automated exposure control, adjustment of the mA and/or kV according to patient size and/or use of iterative reconstruction technique; to reduce radiation dose to as low as reasonably achievable (ALARA). FINDINGS: L4-L5 disc space is well demonstrated on axial series #4 and #2, image 61. Tiny posterior bulge with calcification in the posterior disc margin. Hypertrophic degenerated facets and ligaments impressing on the transverse thecal sac. AP canal diameter 11 mm. Mild foraminal moderate narrowing the right foraminal mild narrowing. L5-S1: Posterior disc space narrowed. Tiny posterior disc bulge. Spina bifida occulta S1. Minimal degeneration hypertrophy of the facets and ligaments. Canal is patent. Moderate right foraminal narrowing and borderline left foraminal stenosis. Minimal concavity of the superior endplate. L3-L4: Disc space maintained with tiny posterior bulge. Anterior endplate ridging. Superior endplate is depressed almost 25% through the right of midline. Not acute. Minimal degenerative hypertrophy of the facets and posterior ligaments with mild canal narrowing. Mild to moderate bilateral foraminal narrowing. Minimal concavity of the superior endplate. L2-L3: Space narrowing posteriorly with endplate sclerosis and spur formation. Anterior endplate ridging. 2 mm retrolisthesis. Disc bulge into the left side of the canal and protrusion into the left foramen 9 mm with borderline left paracentral canal stenosis. Disc is also extruding inferior to the disc space effacing the left subarticular recess and encroaching on the left L3 nerve. Moderate narrowing of the left foramen and mild narrowing of the right foramen. L1-L2: Moderate disc space loss more anterior than posterior. Anterior endplate ridging and desiccated disc gas anteriorly. Posterior broad-based disc bulge abutting the thecal sac. Bilateral endplate and disc bulges into the lateral soft tissues. Mild to moderate canal narrowing. Bilateral degenerative hypertrophy of the facets and ligaments. Mild bilateral foraminal narrowing. T12-L1: Disc space maintained with anterior endplate ridging. No posterior bulge. Mild facet joint arthrosis bilaterally. Posterior ligaments unremarkable. Canal and foramina are patent. Levoscoliosis. No other compression deformities. IMPRESSION: 1. Multiple levels of hypertrophic facet joint arthrosis and flavum ligament thickening contributing to canal narrowing. Also facet spurs and endplate spurs contributing to foraminal narrowing with multiple levels of spondylosis. 2. Posterior left herniation of the L2-3 disc into the canal and left foramen with left paracentral mild canal stenosis. Also left subarticular recess stenosis with encroachment on the left L3 nerve in the recess. Moderate left foraminal narrowing. This may be a chronic herniation seen also on prior abdominal CT scan August 2018. 3. Posterior broad-based L1-L2 disc bulge. Mild to moderate canal narrowing and mild bilateral foraminal narrowing. 4. Spondylosis at L5-S1 with posterior disc space narrowing. Facet spurs and endplate spurs resulting in borderline left foraminal stenosis. Correlate for left L5 radiculopathy. 5. Old compression deformity right superior L3 endplate depressed almost 25%. Stable since abdominal pelvic CT scan August 2018. Electronically signed by: Nilson Riley MD 02/10/2019 8:32 PM BAKERY MACHINE MECHANIC SUPERVISOR
== END ==
LOC: CT 11:08
PROVIDERS: ATTEND Nurse Practitioner Family
DX: M47.26 Other spondylosis with radiculopathy, lumbar region (principal); M47.27 Other spondylosis with radiculopathy, lumbosacral region; M51.16 Intervertebral disc disorders with radiculopathy, lumbar region

== ENCOUNTER → 2019-04-09 | Outpatient (CLI) | payer MEDICARE, OTHER | LOC: LAB.O 15:53 | PROVIDERS: ATTEND Nurse Practitioner Family | DX: R30.0 Dysuria (principal) ==

== ENCOUNTER → 2019-04-20 | Outpatient (CLI) | payer MEDICARE, OTHER | LOC: RESP 15:13 | PROVIDERS: ATTEND Family Medicine | DX: R07.9 Chest pain, unspecified (principal); N89.8 Other specified noninflammatory disorders of vagina ==

== ENCOUNTER 2019-04-23 17:44 | Emergency (ER) | payer MEDICARE, OTHER ==
[2019-04-23] MEDS ORDERED: ASPIRIN TABLET 325 MG TAB PO ONE (18:38)
--- NOTE | 2019-04-23 19:31 | RAD ---
EXAM DESCRIPTION: Chest,2 Views CLINICAL HISTORY:68 years Female, chest pain Comparison: Chest radiograph dated 09/16/2018 FINDINGS: Unchanged left chest pacemaker. No focal lung consolidation. No pleural effusion. No pneumothorax. Cardiac silhouette is unchanged. Mild vascular congestion and interstitial edema. No acute osseous abnormality. Prior cholecystectomy. IMPRESSION: Mild vascular congestion and interstitial edema. Electronically signed by: Armand Gomez DO 04/23/2019 7:30 PM PIN PUSHER
[2019-04-23] MEDS ORDERED: predniSONE 20 MG TAB PO ONE (21:15)
[2019-04-23] MEDS ORDERED: HYDROcodone 10MG/APAP 325MG 1 EA TAB PO ONE (21:15)
[2019-04-23] MEDS ORDERED: LOSARTAN POTASSIUM 25 MG TAB ONE (21:25)
--- NOTE | 2019-04-23 23:19 | ED.PDOC ---
History of Present Illness - General Chief Complaint: Chest Pain/[place] Stated Complaint: chest pain for 2 wks Time Seen by Provider: 04/23/19 18:06 Source: patient Exam Limitations: no limitations - History of Present Illness Initial Comments: Left chest, shoulder, back pain that has been progressive in frequency and strength over the last several months. She had pain essentially all day today and yesterday so she showed up for evaluation this evening. She had been taking nitroglycerin without any relief. She does take chronic pain medications. She does have chronic neck pain. The patient apparently had vancomycin toxicity several months ago and has had several problems related to that since including hearing loss. No shortness of breath. No syncope. Pain is not made worse with aerobic activity. It is a little worse with palpation. Significantly, since the vancomycin toxicity the patient has had balance issues causing multiple falls over the last month or 2. Blood pressures are moderately elevated here today. Patient and her report that her blood pressures are extremely labile and cardiology has had a difficult time regulating this. The patient is obviously depressed. The patient does have known coronary artery disease but reports that she has no stents. The patient sees Dr. Lindsey. The patient has had a history of drug-seeking behavior and medication abuse in the past though she seems to be doing better from that currently. She is seeing a legitimate pain management doctor. Timing/Duration: unsure Severity: moderate Improving Factors: nothing Worsening Factors: movement Associated Symptoms: chest pain Allergies/Adverse Reactions: Allergies Sulfamethoxazole w/Trimethoprim [From Bactrim] Allergy (Mild, Verified 04/23/19 18:16) CI Pigment Blue 63 [From Cymbalta] Allergy (Verified 06/29/18 13:28) Anaphylaxis Duloxetine [From Cymbalta] Allergy (Verified 06/29/18 13:28) Anaphylaxis Ketorolac Tromethamine [From Toradol] Allergy (Verified 06/29/18 13:28) Hives shortness Penicillin G Allergy (Verified 06/29/18 13:28) Other welps Tramadol Allergy (Verified 06/29/18 13:28) Other Morphine Adverse Reaction (Verified 06/29/18 13:28) Other Ondansetron [From Zofran] Adverse Reaction (Verified 06/29/18 13:28) Other Pt claims this causes her to "blister" Home Medications: Ambulatory Orders Alprazolam [Xanax] 1 mg PO BID 10/07/16 Gabapentin 300 mg PO TID 10/07/16 HYDROcodone 10MG/APAP 325MG [[place] 10/325] 1 tab PO Q5H PRN 03/02/18 Losartan Potassium 25 mg PO BID PRN 03/02/18 Nitroglycerin 0.3 mg [Nitrostat] 0.3 mg SL PRN 05/28/18 Carvedilol [Coreg] 6.25 mg PO BID 06/06/18 Pantoprazole Tablet [Protonix] 40 mg PO BID 06/06/18 Aspirin [Aspirin Adult Low Dose] 81 mg PO DAILY 06/29/18 Atorvastatin Calcium 40 mg PO BEDTIME 06/29/18 Review of Systems - Review of Systems Constitutional: States: malaise EENTM: States: see HPI Respiratory: States: no symptoms reported Cardiology: States: chest pain Gastrointestinal/Abdominal: States: no symptoms reported Genitourinary: States: no symptoms reported Musculoskeletal: States: back pain, neck pain Skin: States: no symptoms reported Neurological: States: see HPI Endocrine: States: no symptoms reported All other Systems: No Change from Baseline Past Medical History (General) - Patient Medical History Hx Seizures: Yes Hx Stroke: - undiagnosed, pt does not know but thinks maybe Hx Dementia: No Hx Asthma: No Hx of COPD: Yes Hx Cardiac Disorders: Yes - [place] Hx Congestive Heart Failure: No Hx Pacemaker: Yes Hx Hypertension: Yes Hx Thyroid Disease: No Hx Diabetes: Yes - borderline Hx Gastroesophageal Reflux: Yes Hx Renal Disease: No Hx Cancer: No Hx of HIV: No Hx Hepatitis C: No Hx MRSA: No MRSA Source:: Wound - Vaccination History Hx Tetanus, Diphtheria Vaccination: Yes Hx Influenza Vaccination: No Hx Pneumococcal Vaccination: No - Social History Hx Tobacco Use: No Hx Chewing Tobacco Use: No Hx Alcohol Use: Yes - occasional with dinner Hx Substance Use: No Hx Substance Use Treatment: No Hx Depression: No Hx Physical Abuse: No Hx Emotional Abuse: No Hx Suspected Abuse: No - Activities of Daily Living Hospice Agency (if applicable):: None - Female History Patient : No - Triage Comment ED Triage Comment: pt ambulated to ED bed 4 for triage. pt voices chest pain that originated around 2 wks ago. Family Medical History - Family History Father Living Status: Cause of : copd Mother Living Status: Cause of : colon ca Son Name: mother Living Status: Age at (years of age): 54 Cause of : colon cancer Hx Family Asthma: No Hx Family Congestive Heart Failure: No Hx Family Hypertension: Yes Hx Family Stroke: Yes Hx Cardiac Disease: No Hx Family Diabetes: No Hx Family Cancer: Yes Hx Family;Other: Crohn's Physical Exam - Physical Exam General Appearance: Alert, No apparent distress, Other - The patient is dysphoric Eye Exam: bilateral normal Ears, Nose, Throat: normal pharynx, other - Recent bilateral significant hearing decrease. She does seem to be able to hear me fairly well at a normal tone in a quiet room. Neck: other - Left paraspinal musculature discomfort to palpation with some spasm. Discomfort extends down the trapezius towards the shoulder. There is some discomfort over the scapula as well as the point of the shoulder and around to the pectoralis muscle of the chest. Respiratory: lungs clear, normal breath sounds, no respiratory distress, no accessory muscle use Cardiovascular/Chest: normal peripheral pulses, regular rate, rhythm, no edema Peripheral Pulses: radial,right: 2+, radial,left: 2+, dorsalis pedis,right: 2+, dorsalis pedis,left: 2+ Gastrointestinal/Abdominal: non tender, soft Rectal Exam: deferred Back Exam: no CVA tenderness, no vertebral tenderness, other - See above Extremity: no pedal edema, no calf tenderness, normal capillary refill, other - Mild limitation of range of motion of the shoulder secondary to discomfort. 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, alert, oriented x 3, other - The patient does appear depressed Skin Exam: normal color Comments: Vital Signs - 24 hr 04/23/19 04/23/19 04/23/19 18:09 18:25 18:27 Temperature 97.9 F Pulse Rate [ 80 80 80 brachial] Respiratory 18 Rate Blood Pressure 158/97 [Right Arm] O2 Sat by Pulse 98 Oximetry 04/23/19 04/23/19 19:00 20:00 Temperature Pulse Rate [ 82 76 brachial] Respiratory 18 18 Rate Blood Pressure 175/85 159/87 [Right Arm] O2 Sat by Pulse 99 99 Oximetry Progress - Progress Progress: 04/23/19 23:23 The patient is a 68-year-old female presenting with atypical chest pain that is most likely musculoskeletal in origin from her recent falls. The patient's cardiac enzymes are negative x2 in spite of having continuous pain for the last couple of days. EKG is also consistent with previous EKGs and her chest x-ray is reassuring. The patient does apparently have known coronary artery disease and follows with Dr. Lindsey. Her actually has an appointment with him tomorrow, so the patient will tag along and see if he feels any additional work-up is warranted at this point in time. Again I see no evidence of any acute myocardial infarction. The patient appears to have had a fairly hard time over the last couple of months and does seem to have some depression going on. I would recommend that she follow-up with her primary care doctor to get her set up with further psychiatric evaluation. Keep follow-up with pain management for her chronic neck pain as this does likely contribute to some of her symptoms today. Keep well-hydrated. ER warnings were given for any acute worsening. michelle franklin [phone] - Results/Orders Results/Orders: Laboratory Tests 04/23/19 04/23/19 04/23/19 18:38 19:50 19:50 WBC 6.8 RBC 3.95 L Hgb 10.1 L Hct 31.6 L MCV 80.1 L MCH 25.7 L MCHC 32.1 L RDW 20.2 H Plt Count 195 MPV 8.5 Absolute Neuts (auto) 3.60 Absolute Lymphs (auto) 2.20 Absolute Monos (auto) 0.60 Absolute Eos (auto) 0.20 Absolute Basos (auto) 0.20 H Neutrophils % 53.1 Lymphocytes % 33.1 Monocytes % 8.1 Eosinophils % 3.2 Basophils % 2.5 H PT INR PTT (SP) Sodium 141 Potassium 3.9 Chloride 108 Carbon Dioxide 21 Anion Gap 15.9 BUN 10 Creatinine 0.68 BUN/Creatinine Ratio 14.7 Random Glucose 112 H Serum Osmolality 281.1 Calcium 8.4 Magnesium 1.7 L Total Bilirubin 0.4 AST 46 H ALT 19 Alkaline Phosphatase 143 H Creatine Kinase 50 CK-MB (CK-2) 1.6 CK-MB (CK-2) % Not Reportable Troponin I < 0.02 B-Natriuretic Peptide 211.0 H* Serum Total Protein 6.7 Albumin 3.3 Globulin 3.4 Albumin/Globulin Ratio 1.0 L TSH 1.14 04/23/19 04/23/19 19:50 22:34 WBC RBC Hgb Hct MCV MCH MCHC RDW Plt Count MPV Absolute Neuts (auto) Absolute Lymphs (auto) Absolute Monos (auto) Absolute Eos (auto) Absolute Basos (auto) Neutrophils % Lymphocytes % Monocytes % Eosinophils % Basophils % PT 11.0 H INR 1.11 PTT (SP) 22.0 Sodium Potassium Chloride Carbon Dioxide Anion Gap BUN Creatinine BUN/Creatinine Ratio Random Glucose Serum Osmolality Calcium Magnesium Total Bilirubin AST ALT Alkaline Phosphatase Creatine Kinase 51 CK-MB (CK-2) 1.6 CK-MB (CK-2) % Not Reportable Troponin I < 0.02 B-Natriuretic Peptide Serum Total Protein Albumin Globulin Albumin/Globulin Ratio TSH Chest x-ray shows mild vascular congestion. No pneumonia or obvious broken ribs. No pneumothorax. EKG shows normal sinus rhythm at 75 bpm. Normal axis. Right bundle branch block. No ST segment or T wave changes indicative of acute ischemia. This EKG is consistent with previous EKGs. Borderline QT interval. Departure - Departure Clinical Impression: Atypical chest pain, History of coronary artery disease Disposition: Discharge to Home or Self Care Condition: Fair Departure Forms: ED Discharge - Pt. Copy, Patient Portal Self Enrollment Diet: diabetic diet, low salt diet Activity: increase activity as tolerated Referrals: JANET GAMEZ IV QUAHOGGER [Primary Care Provider] - 1-2 Weeks Home Medications: Ambulatory Orders Alprazolam [Xanax] 1 mg PO BID 10/07/16 Gabapentin 300 mg PO TID 10/07/16 HYDROcodone 10MG/APAP 325MG [[place] 10/325] 1 tab PO Q5H PRN 03/02/18 Losartan Potassium 25 mg PO BID PRN 03/02/18 Nitroglycerin 0.3 mg [Nitrostat] 0.3 mg SL PRN 05/28/18 Carvedilol [Coreg] 6.25 mg PO BID 06/06/18 Pantoprazole Tablet [Protonix] 40 mg PO BID 06/06/18 Aspirin [Aspirin Adult Low Dose] 81 mg PO DAILY 06/29/18 Atorvastatin Calcium 40 mg PO BEDTIME 06/29/18 Additional Instructions: The patient is a 68-year-old female presenting with atypical chest pain that is most likely musculoskeletal in origin from her recent falls compounded with her chronic neck pain. The patient's cardiac enzymes are negative x2 in spite of having continuous pain for the last couple of days. EKG is also consistent with previous EKGs and her chest x-ray is reassuring. The patient does apparently have known coronary artery disease and follows with Dr. Lindsey. Her actually has an appointment with him tomorrow, so the patient will tag along and see if he feels any additional work-up is warranted at this point in time. Again I see no evidence of any acute myocardial infarction. The patient appears to have had a fairly hard time over the last couple of months and does seem to have some depression going on. I would recommend that she follow-up with her primary care doctor to get her set up with further psychiatric evaluation. Keep follow-up with pain management for her chronic neck pain as this does likely contribute to some of her symptoms today. Keep well-hydrated. ER warnings were given for any acute worsening.
[2019-04-24 00:06] VITALS: BP 180/110; TEMP 98.3; O2SAT 97
[2019-04-24] MEDS ORDERED: LOSARTAN POTASSIUM 25 MG TAB PO SCH (09:00)
== END 2019-04-23 23:30 | disposition home or self-care (01) ==
LOC: ER 17:44
DX: R07.89 Other chest pain (principal); I25.10 Atherosclerotic heart disease of native coronary artery without angina pectoris; I45.10 Unspecified right bundle-branch block; G89.29 Other chronic pain; R56.9 Unspecified convulsions; J44.9 Chronic obstructive pulmonary disease, unspecified; I25.2 Old myocardial infarction; I10 Essential (primary) hypertension; K21.9 Gastro-esophageal reflux disease without esophagitis; R73.03 Prediabetes; Z79.891 Long term (current) use of opiate analgesic; Z79.899 Other long term (current) drug therapy; Z95.0 Presence of cardiac pacemaker; Z79.82 Long term (current) use of aspirin; Z88.2 Allergy status to sulfonamides; Z88.8 Allergy status to other drugs, medicaments and biological substances; Z88.5 Allergy status to narcotic agent; Z88.0 Allergy status to penicillin
CPT/HCPCS: 36415; 71046; 80053; 82550; 82553; 83735; 83880; 84443; 84484; 85025; 85610; 85730; 93005; J7512

== ENCOUNTER → 2019-06-30 | Outpatient (CLI) | payer MEDICARE, OTHER | LOC: LAB.O 17:00 | PROVIDERS: ATTEND Nurse Practitioner Family | DX: R19.7 Diarrhea, unspecified (principal) ==

== ENCOUNTER 2019-07-06 18:38 | Emergency (ER) | payer MEDICARE, OTHER ==
[2019-07-06] MEDS ORDERED: hydrOXYzine HCl 10 MG TAB PO ONE (18:52)
[2019-07-06] MEDS ORDERED: CLINDAMYCIN HCL CAP 150 MG CAP PO ONE (18:52)
[2019-07-06 18:58] VITALS: TEMP 98.5
--- NOTE | 2019-07-06 19:03 | ED.PDOC ---
History of Present Illness - General Chief Complaint: Skin/Abrasion/Tear Stated Complaint: "skin spots on me everywhere" Time Seen by Provider: 07/06/19 18:41 Source: patient Exam Limitations: no limitations - History of Present Illness Initial Comments: The patient is a 68-year-old female presented emergency room secondary to pruritus and small bumps popping up where she is scratching. No fevers. No nausea or vomiting. She has been having some diarrhea. She was apparently tested by her primary care doctor earlier this week for C. difficile and tested negative. The patient was in the hospital for pneumonia up until 2 weeks ago. Since that time she has been having the pruritus. She does obviously have very dry skin. The small bumps that she is talking about are where she has been scratching and broken skin. There is no abscess. There is no extending cellulitis. No clinical evidence of sepsis. Lungs are sounding good. She is oxygenating well. The patient has obviously had some of her sedating medications this evening. Vital signs are stable. Timing/Duration: other - 2 weeks Severity: mild Improving Factors: nothing Worsening Factors: nothing Associated Symptoms: malaise Allergies/Adverse Reactions: Allergies Sulfamethoxazole w/Trimethoprim [From Bactrim] Allergy (Mild, Verified 04/23/19 18:16) CI Pigment Blue 63 [From Cymbalta] Allergy (Verified 06/29/18 13:28) Anaphylaxis Duloxetine [From Cymbalta] Allergy (Verified 06/29/18 13:28) Anaphylaxis Hydralazine Allergy (Verified 06/03/19 02:32) Other Ketorolac Tromethamine [From Toradol] Allergy (Verified 06/29/18 13:28) Hives shortness Metoclopramide [From Reglan] Allergy (Verified 06/03/19 02:32) Penicillin G Allergy (Verified 06/29/18 13:28) Other welps Tramadol Allergy (Verified 06/29/18 13:28) Other Fentanyl Adverse Reaction (Verified 06/03/19 02:32) Other mouth swell Morphine Adverse Reaction (Verified 06/29/18 13:28) Other Ondansetron [From Zofran] Adverse Reaction (Verified 06/29/18 13:28) Other Pt claims this causes her to "blister" Vancomycin Adverse Reaction (Verified 03/18/20 02:32) Other pt stated if made her deaf Home Medications: Ambulatory Orders Alprazolam [Xanax] 1 mg PO TID PRN 10/07/16 Gabapentin 300 mg PO Q8H 10/07/16 HYDROcodone 10MG/APAP 325MG [[place] 10/325] 1 tab PO Q4H PRN 03/02/18 Nitroglycerin 0.3 mg [Nitrostat] 0.3 mg SL PRN 05/28/18 Pantoprazole Tablet [Protonix] 20 mg PO DAILY 06/06/18 Aspirin [Aspirin Adult Low Dose] 81 mg PO DAILY 06/29/18 Atorvastatin Calcium 40 mg PO BEDTIME 06/29/18 Carvedilol [Coreg] 6.25 mg PO BID 06/03/19 Losartan Potassium 25 mg PO BID 06/03/19 Lunesta 2 mg PO BEDTIME 06/03/19 Metoprolol Tartrate 50 mg PO BID 06/03/19 Potassium Chloride Tab [Micro-K] 0 meq PO DAILY 06/03/19 tiZANidine [Zanaflex] 4 mg PO Q8H PRN 06/03/19 Azithromycin IV [Zithromax IV] 500 mg IVPB Q24H vial 06/05/19 Benzonatate Perles [Tessalon Perles] 200 mg PO TID PRN cap 06/05/19 Bifidobacterium Infantis [Align] 4 mg PO BID cap 06/05/19 Linezolid IV [Zyvox IV] 600 mg IVPB Q12H bag 06/05/19 cefTRIAXone SODIUM [Rocephin] 1 gm IVPB Q24H vial 06/05/19 Clindamycin HCl 150 mg PO Q8HR #12 cap 07/06/19 Hydroxyzine HCl [Hydroxyzine Hydrochloride] 10 mg PO Q8HR PRN #14 tab 07/06/19 Review of Systems - Review of Systems Constitutional: States: no symptoms reported EENTM: States: no symptoms reported Respiratory: States: no symptoms reported Cardiology: States: no symptoms reported Gastrointestinal/Abdominal: States: no symptoms reported Genitourinary: States: no symptoms reported Musculoskeletal: States: no symptoms reported Skin: States: see HPI Neurological: States: no symptoms reported Endocrine: States: no symptoms reported All other Systems: No Change from Baseline Past Medical History (General) - Patient Medical History Hx Seizures: Yes Hx Stroke: - undiagnosed, pt does not know but thinks maybe Hx Dementia: No Hx Asthma: No Hx of COPD: Yes Hx Cardiac Disorders: Yes - [place] Hx Congestive Heart Failure: No Hx Pacemaker: Yes Hx Hypertension: Yes Hx Thyroid Disease: No Hx Diabetes: Yes - borderline Hx Gastroesophageal Reflux: Yes Hx Renal Disease: No Hx Cancer: No Hx of HIV: No Hx Hepatitis C: No Hx MRSA: No MRSA Source:: Wound - Vaccination History Hx Tetanus, Diphtheria Vaccination: Yes Hx Influenza Vaccination: No Hx Pneumococcal Vaccination: No - Social History Hx Tobacco Use: No Hx Chewing Tobacco Use: No Hx Alcohol Use: Yes - occasional with dinner Hx Substance Use: No Hx Substance Use Treatment: No Hx Depression: No Hx Physical Abuse: No Hx Emotional Abuse: No Hx Suspected Abuse: No - Activities of Daily Living Hospice Agency (if applicable):: None - Female History Patient is a Female of Child Bearing Age (10 -59 yrs old): No Patient : No - Triage Comment ED Triage Comment: pt voices that she is breaking out in skin spots everywhere and has fluid build on her. Family Medical History - Family History Father Living Status: Cause of : copd Mother Living Status: Cause of : colon ca Son Name: mother Living Status: Age at (years of age): 54 Cause of : colon cancer Hx Family Asthma: No Hx Family Congestive Heart Failure: No Hx Family Hypertension: Yes Hx Family Stroke: Yes Hx Cardiac Disease: No Hx Family Diabetes: No Hx Family Cancer: Yes Hx Family;Other: Crohn's Physical Exam - Physical Exam General Appearance: Alert, Comfortable, No apparent distress - She is a little bit drowsy from her sedating medications. 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 These are scattered but only on the areas that she can reach to scratch. No evidence of any blisters. No scalded skin. Comments: Vital Signs - 24 hr 07/06/19 18:54 Temperature 98.5 F Pulse Rate [ 70 brachial] Respiratory 18 Rate Blood Pressure 113/61 [Left Arm] O2 Sat by Pulse 94 L Oximetry Progress - Progress Progress: 07/06/19 19:05 The patient is a 68-year-old female presented emergency room secondary to pruritus primarily. The patient does have dry skin which is likely the main contributor here. She can picker and packer some Cetaphil cream and apply it all over twice daily. Additionally the patient has been having some chronic diarrhea since she left the hospital. Her primary care doctor has apparently already t ested her for C. difficile which was negative. The patient needs to picker and packer and take a probiotic twice daily such as align or VSL3. This should help reduce the diarrhea. Additionally the patient is going to be written for 4 days of clindamycin for the mildly excoriated areas. She is also going to be written for a very low-dose hydroxyzine to be taken every 8 hours as needed for couple of days. ER warnings are given for any significant worsening. Follow-up with primary care doctor within the next 2 days. michelle franklin [phone] Departure - Departure Clinical Impression: Dry skin dermatitis, Diarrhea due to drug Disposition: Discharge to Home or Self Care Condition: Fair Departure Forms: ED Discharge - Pt. Copy, Patient Portal Self Enrollment Instructions: DI for Wound Infection Diet: regular diet Activity: increase activity as tolerated Referrals: JANET GAMEZ IV, AIRCONDITION[employer] ENGINEER [Primary Care Provider] - 1-2 Weeks Prescriptions: Clindamycin HCl 150 mg PO Q8HR #12 cap Hydroxyzine HCl [Hydroxyzine Hydrochloride] 10 mg PO Q8HR PRN #14 tab PRN Reason: itching Home Medications: Ambulatory Orders Alprazolam [Xanax] 1 mg PO TID PRN 10/07/16 Gabapentin 300 mg PO Q8H 10/07/16 HYDROcodone 10MG/APAP 325MG [[place] 10/325] 1 tab PO Q4H PRN 03/02/18 Nitroglycerin 0.3 mg [Nitrostat] 0.3 mg SL PRN 05/28/18 Pantoprazole Tablet [Protonix] 20 mg PO DAILY 06/06/18 Aspirin [Aspirin Adult Low Dose] 81 mg PO DAILY 06/29/18 Atorvastatin Calcium 40 mg PO BEDTIME 06/29/18 Carvedilol [Coreg] 6.25 mg PO BID 06/03/19 Losartan Potassium 25 mg PO BID 06/03/19 Lunesta 2 mg PO BEDTIME 06/03/19 Metoprolol Tartrate 50 mg PO BID 06/03/19 Potassium Chloride Tab [Micro-K] 0 meq PO DAILY 06/03/19 tiZANidine [Zanaflex] 4 mg PO Q8H PRN 06/03/19 Azithromycin IV [Zithromax IV] 500 mg IVPB Q24H vial 06/05/19 Benzonatate Perles [Tessalon Perles] 200 mg PO TID PRN cap 06/05/19 Bifidobacterium Infantis [Align] 4 mg PO BID cap 06/05/19 Linezolid IV [Zyvox IV] 600 mg IVPB Q12H bag 06/05/19 cefTRIAXone SODIUM [Rocephin] 1 gm IVPB Q24H vial 06/05/19 Clindamycin HCl 150 mg PO Q8HR #12 cap 07/06/19 Hydroxyzine HCl [Hydroxyzine Hydrochloride] 10 mg PO Q8HR PRN #14 tab 07/06/19 Additional Instructions: The patient is a 68-year-old female presented emergency room secondary to pruritus primarily. The patient does have dry skin which is likely the main contributor here. She can picker and packer some Cetaphil cream and apply it all over twice daily. Additionally the patient has been having some chronic diarrhea since she left the hospital. Her primary care doctor has apparently already tested her for C. difficile which was negative. The patient needs to picker and packer an d take a probiotic twice daily such as align or VSL3. This should help reduce the diarrhea. Additionally the patient is going to be written for 4 days of clindamycin for the mildly excoriated areas. She is also going to be written for a very low-dose hydroxyzine to be taken every 8 hours as needed for couple of days. She can also use a mildly hydrating soap such as Dove when she bathes at night. ER warnings are given for any significant worsening. Follow-up with primary care doctor within the next 2 days.
[2019-07-06 19:37] VITALS: BP 84/61; O2SAT 96
== END 2019-07-06 19:38 | disposition home or self-care (01) ==
LOC: ER 18:38
DX: L85.3 Xerosis cutis (principal); R73.03 Prediabetes; R53.1 Weakness; R19.7 Diarrhea, unspecified; I10 Essential (primary) hypertension; I25.2 Old myocardial infarction; Z95.0 Presence of cardiac pacemaker; Z79.899 Other long term (current) drug therapy; Z79.82 Long term (current) use of aspirin

== ENCOUNTER 2019-07-07 18:45 | Emergency (ER) | payer MEDICARE, OTHER ==
[2019-07-07 19:06] VITALS: TEMP 97.7
[2019-07-07] MEDS ORDERED: SODIUM CHLORIDE 0.9% (FLUSH) 10 ML SYG IV PRN (19:07)
[2019-07-07] MEDS ORDERED: NITROGLYCERIN 2% 1 GM UD TOP ONE (19:10)
[2019-07-07] MEDS ORDERED: ASPIRIN (CHEWABLE) 81 MG TAB PO ONE (19:10)
--- NOTE | 2019-07-07 19:43 | RAD ---
EXAM DESCRIPTION: XR Chest, 1 View CLINICAL HISTORY: 68 years Female Chest pain TECHNIQUE: One view of the chest. COMPARISON: 06/05/2019 FINDINGS: Stable left chest wall pacemaker. Cholecystectomy clips. Stable elevation of the right hemidiaphragm. The lungs are clear without focal consolidation, effusion, or pneumothorax. The cardiomediastinal silhouette and central pulmonary vasculature are normal. No acute osseous abnormalities. IMPRESSION: No acute cardiopulmonary abnormalities. Electronically signed by: Janie Quevedo MD 07/07/2019 7:42 PM CDT
[2019-07-07] MEDS ORDERED: fentaNYL CITRATE INJ 50 MCG/ML 2 ML AMP IV ONE ×2 (21:09→22:03)
[2019-07-07 22:05] VITALS: BP 165/78; O2SAT 94
--- NOTE | 2019-07-07 22:39 | ED.PDOC ---
History of Present Illness - General Chief Complaint: Cardiovascular Problem Stated Complaint: chest pain and left arm pain Time Seen by Provider: 07/07/19 19:16 Source: patient, RN notes reviewed, Vital Signs reviewed, family - Exam Limitations: no limitations - History of Present Illness Initial Comments: Patient is a 68-year-old white female who presents with complaints of chest pain, substernal, radiating to her left arm. It is pressure-like in nature. It is moderate in intensity. It is associated with some nausea and diaphoresis. Pain improved with nitroglycerin. Worse with exertion. Patient was sitting in her house when this occurred. Timing/Duration: 1/2 hour Severity/Quality: moderate, pressure Location: substernal Chest Pain Radiation: arms - Left shoulder and arm Prior Chest Pain/Cardiac Workup: other - Patient states she has had a stress test approximately year and a half ago. Improving Factors: medication - Nitroglycerin, rest Worsening Factors: movement Nitro Today/Relief: 0.4 mg x 3 Aspirin Treatment Today: 81 mg x 4 Associated Symptoms: diaphoresis, fatigue, nausea/vomiting, shortness of breath Allergies/Adverse Reactions: Allergies Sulfamethoxazole w/Trimethoprim [From Bactrim] Allergy (Mild, Verified 04/23/19 18:16) CI Pigment Blue 63 [From Cymbalta] Allergy (Verified 06/29/18 13:28) Anaphylaxis Duloxetine [From Cymbalta] Allergy (Verified 06/29/18 13:28) Anaphylaxis Hydralazine Allergy (Verified 06/03/19 02:32) Other Ketorolac Tromethamine [From Toradol] Allergy (Verified 06/29/18 13:28) Hives shortness Metoclopramide [From Reglan] Allergy (Verified 06/03/19 02:32) Penicillin G Allergy (Verified 06/29/18 13:28) Other welps Tramadol Allergy (Verified 06/29/18 13:28) Other Fentanyl Adverse Reaction (Verified 06/03/19 02:32) Other mouth swell Morphine Adverse Reaction (Verified 06/29/18 13:28) Other Ondansetron [From Zofran] Adverse Reaction (Verified 06/29/18 13:28) Other Pt claims this causes her to "blister" Vancomycin Adverse Reaction (Verified 06/03/19 02:32) Other pt stated if made her deaf Home Medications: Ambulatory Orders Alprazolam [Xanax] 1 mg PO TID PRN 10/07/16 Gabapentin 300 mg PO Q8H 10/07/16 HYDROcodone 10MG/APAP 325MG [[place] 10/325] 1 tab PO Q4H PRN 03/02/18 Nitroglycerin 0.3 mg [Nitrostat] 0.3 mg SL PRN 05/28/18 Pantoprazole Tablet [Protonix] 20 mg PO DAILY 06/06/18 Aspirin [Aspirin Adult Low Dose] 81 mg PO DAILY 06/29/18 Atorvastatin Calcium 40 mg PO BEDTIME 06/29/18 Carvedilol [Coreg] 6.25 mg PO BID 06/03/19 Losartan Potassium 25 mg PO BID 06/03/19 Lunesta 2 mg PO BEDTIME 06/03/19 Metoprolol Tartrate 50 mg PO BID 06/03/19 Potassium Chloride Tab [Micro-K] 0 meq PO DAILY 06/03/19 tiZANidine [Zanaflex] 4 mg PO Q8H PRN 06/03/19 Azithromycin IV [Zithromax IV] 500 mg IVPB Q24H vial 06/05/19 Benzonatate Perles [Tessalon Perles] 200 mg PO TID PRN cap 06/05/19 Bifidobacterium Infantis [Align] 4 mg PO BID cap 06/05/19 Linezolid IV [Zyvox IV] 600 mg IVPB Q12H bag 06/05/19 cefTRIAXone SODIUM [Rocephin] 1 gm IVPB Q24H vial 06/05/19 Clindamycin HCl 150 mg PO Q8HR #12 cap 07/06/19 Hydroxyzine HCl [Hydroxyzine Hydrochloride] 10 mg PO Q8HR PRN #14 tab 07/06/19 Review of Systems - Review of Systems Constitutional: States: see HPI, malaise. Denies: chills, fever EENTM: States: no symptoms reported, see HPI Respiratory: States: see HPI, short of breath. Denies: cough, wheezing Cardiology: States: see HPI, chest pain. Denies: palpitations, syncope Gastrointestinal/Abdominal: States: see HPI, nausea, vomiting. Denies: abdominal pain, diarrhea Genitourinary: States: no symptoms reported Musculoskeletal: States: no symptoms reported Skin: States: see HPI, other - Diaphoresis. Denies: change in color Neurological: States: no symptoms reported. Denies: headache, paresthesia Endocrine: States: no symptoms reported Hematologic/Lymphatic: States: no symptoms reported All other Systems: Reviewed and Negative, No Change from Baseline Past Medical History (General) - Patient Medical History Hx Seizures: No Hx Stroke: No Hx Dementia: No Hx Asthma: No Hx of COPD: Yes Hx Cardiac Disorders: Yes Hx Congestive Heart Failure: Yes Hx Pacemaker: Yes Hx Hypertension: Yes Hx Thyroid Disease: No Hx Diabetes: Yes Hx Gastroesophageal Reflux: No Hx Renal Disease: No Hx Cancer: No Hx of HIV: No Hx Hepatitis C: No Hx MRSA: No MRSA Source:: Wound Surgical History: cholecystectomy, Hysterectomy - Vaccination History Hx Tetanus, Diphtheria Vaccination: Yes Hx Influenza Vaccination: Yes Hx Pneumococcal Vaccination: Yes - Social History Hx Tobacco Use: No Hx Chewing Tobacco Use: No Hx Alcohol Use: No Hx Substance Use: No Hx Substance Use Treatment: No Hx Depression: No Feels Threatened In Home Enviroment: No Feels Threatened In a Relationship: No Hx Physical Abuse: No Hx Emotional Abuse: No Hx Suspected Abuse: No - Female History Patient is a Female of Child Bearing Age (10 -59 yrs old): No Patient : No Family Medical History - Family History Father Living Status: Cause of : copd Mother Living Status: Cause of : colon ca Son Name: mother Living Status: Age at (years of age): 54 Cause of : colon cancer Hx Family Asthma: No Hx Family Congestive Heart Failure: No Hx Family Hypertension: Yes Hx Family Stroke: Yes Hx Cardiac Disease: No Hx Family Diabetes: No Hx Family Cancer: Yes Hx Family;Other: Crohn's Physical Exam - Physical Exam General Appearance: Alert, Anxious, Obvious distress, Obese, Well Developed, Well Groomed, Well Hydrated, Well Nourished Eyes, Ears, Nose, Throat Exam: PERRL/EOMI, normal ENT inspection, pharynx normal Neck: non-tender, full range of motion, supple Respiratory: chest non-tender, lungs clear, normal breath sounds, no respiratory distress, no accessory muscle use Cardiovascular/Chest: normal peripheral pulses, regular rate, rhythm, no gallop, systolic murmur Peripheral Pulses: radial,right: 2+, radial,left: 2+ Gastrointestinal/Abdominal: normal bowel sounds, non tender, soft Extremity: normal range of motion, non-tender, normal inspection Neurologic: vaccines solutions specialist II-XII nml as tested, no motor/sensory deficits, alert, normal mood/affect, oriented x 3 Skin Exam: normal color, warm/dry Lymphatic: no adenopathy Progress - Progress Progress: Differential diagnosis: Unstable angina, ACS, ST elevation NM, pneumonia among others. 07/07/19 22:42 Patient's pain improved after nitroglycerin and aspirin. Improved further with fentanyl. Was not able to completely resolve the chest pain. Patient at high risk for ACS and therefore, transferred was arranged to 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 I discussed this plan of care with the patient and her and they voiced understanding and agreement. Jose Angel Interiano M.D. #[id number] - Results/Orders Results/Orders: EXAM DESCRIPTION: XR Chest, 1 View CLINICAL HISTORY: 68 years Female Chest pain TECHNIQUE: One view of the chest. COMPARISON: 06/05/2019 FINDINGS: Stable left chest wall pacemaker. Cholecystectomy clips. Stable elevation of the right hemidiaphragm. The lungs are clear without focal consolidation, effusion, or pneumothorax. The cardiomediastinal silhouette and central pulmonary vasculature are normal. No acute osseous abnormalities. IMPRESSION: No acute cardiopulmonary abnormalities. Electronically signed by: Janie Quevedo MD 07/07/2019 7:42 PM CDT EKG performed on 06 July at 1913 hrs.: Normal sinus rhythm at 77 bpm, normal axis deviation, incomplete right bundle branch block, septal infarct, age indeterminate, abnormal EKG. 07/07/19 19:07 Sodium Chloride 0.9% (Flush) [Saline Flush Syringe] 10 ml IV PRN PRN 07/07/19 19:09 IV Care:Saline Lock per Protoc QSHIFT Telemetry .ONCE EKG Stat Pulse Ox Stat Pulse Oximetry Assessment DAILY Laboratory Results - last 24 hr 07/07/19 07/07/19 19:45 19:45 WBC 6.4 RBC 4.38 Hgb 10.8 L Hct 33.9 L MCV 77.4 L MCH 24.7 L MCHC 31.9 L RDW 17.9 H Plt Count 236 MPV 8.2 Absolute Neuts (auto) 3.10 Absolute Lymphs (auto) 2.30 Absolute Monos (auto) 0.70 Absolute Eos (auto) 0.20 Absolute Basos (auto) 0.10 Neutrophils % 48.1 Lymphocytes % 35.8 Monocytes % 11.8 H Eosinophils % 2.8 Basophils % 1.5 Sodium 138 Potassium 4.4 Chloride 109 Carbon Dioxide 23 Anion Gap 10.4 L BUN 18 Creatinine 1.12 BUN/Creatinine Ratio 16.1 Random Glucose 100 Serum Osmolality 277.7 Calcium 8.4 Magnesium 1.7 L Creatine Kinase 128 CK-MB (CK-2) 3.3 CK-MB (CK-2) % Not Reportable Troponin I < 0.02 B-Natriuretic Peptide 95.2 Vital Signs 07/07/19 07/07/19 07/07/19 19:00 20:00 21:00 Temperature 97.7 F Pulse Rate 71 Pulse Rate [ 81 73 70 Pulse ox] Respiratory 18 14 14 Rate Blood Pressure 131/76 143/76 110/82 [Left Arm] O2 Sat by Pulse 100 100 99 Oximetry 07/07/19 22:00 Temperature Pulse Rate Pulse Rate [ 77 Pulse ox] Respiratory 18 Rate Blood Pressure 165/78 [Left Arm] O2 Sat by Pulse 94 L Oximetry Departure - Departure Clinical Impression: Unstable angina Chest pain Qualifiers: Chest pain type: unspecified Qualified Code(s): R07.9 - Chest pain, unspecified Time of Disposition: 22:48 Disposition: Transfer to Hospital Condition: Fair Departure Forms: ED Discharge - Pt. Copy, Patient Portal Self Enrollment Referrals: JANET GAMEZ IV, MARINE PAINTER [Primary Care Provider] - 1-2 Weeks Home Medications: Ambulatory Orders Alprazolam [Xanax] 1 mg PO TID PRN 10/07/16 Gabapentin 300 mg PO Q8H 10/07/16 HYDROcodone 10MG/APAP 325MG [[place] 10/325] 1 tab PO Q4H PRN 03/02/18 Nitroglycerin 0.3 mg [Nitrostat] 0.3 mg SL PRN 05/28/18 Pantoprazole Tablet [Protonix] 20 mg PO DAILY 06/06/18 Aspirin [Aspirin Adult Low Dose] 81 mg PO DAILY 06/29/18 Atorvastatin Calcium 40 mg PO BEDTIME 06/29/18 Carvedilol [Coreg] 6.25 mg PO BID 06/03/19 Losartan Potassium 25 mg PO BID 06/03/19 Lunesta 2 mg PO BEDTIME 06/03/19 Metoprolol Tartrate 50 mg PO BID 06/03/19 Potassium Chloride Tab [Micro-K] 0 meq PO DAILY 06/03/19 tiZANidine [Zanaflex] 4 mg PO Q8H PRN 06/03/19 Azithromycin IV [Zithromax IV] 500 mg IVPB Q24H vial 06/05/19 Benzonatate Perles [Tessalon Perles] 200 mg PO TID PRN cap 06/05/19 Bifidobacterium Infantis [Align] 4 mg PO BID cap 06/05/19 Linezolid IV [Zyvox IV] 600 mg IVPB Q12H bag 06/05/19 cefTRIAXone SODIUM [Rocephin] 1 gm IVPB Q24H vial 06/05/19 Clindamycin HCl 150 mg PO Q8HR #12 cap 07/06/19 Hydroxyzine HCl [Hydroxyzine Hydrochloride] 10 mg PO Q8HR PRN #14 tab 07/06/19 Transfer to Outside Facility - Transfer Information Decision to Transfer Date: 07/07/19 Decision to Transfer Time: 22:00 Reason for Transfer: required specialist not available Accepting Facility: [facility]
== END 2019-07-07 22:59 | disposition short-term general hospital (02) ==
LOC: ER 18:45
DX: I20.0 Unstable angina (principal); R11.0 Nausea; R07.9 Chest pain, unspecified; E11.9 Type 2 diabetes mellitus without complications; J44.9 Chronic obstructive pulmonary disease, unspecified; I50.9 Heart failure, unspecified; I10 Essential (primary) hypertension; Z95.0 Presence of cardiac pacemaker; Z79.82 Long term (current) use of aspirin; Z79.899 Other long term (current) drug therapy
CPT/HCPCS: 71045; 80048; 82550; 82553; 83735; 83880; 84484; 85025; 93005; J3010

== ENCOUNTER → 2019-07-26 | Outpatient (CLI) | payer MEDICARE, OTHER ==
--- NOTE | 2019-07-27 08:04 | RAD ---
XR FEMUR 2 VIEWS, XR KNEE 4 OR MORE VIEWS, XR TIBIA FIBULA 2 VIEWS HISTORY: 68 years Female LEG PAIN COMPARISON: CT abdomen and pelvis dated June 03, 2019; right femur x-rays dated March 02, 2018. TECHNIQUE: 2 views of the right femur and right lower leg as well as 3 views of the right knee were obtained. IMPRESSION: No acute fracture or dislocation observed. [id number] narrowing of the right hip with marked osteophytosis along the femoral head. Right knee joint space appears maintained. Mild lateral subluxation of the patella, which can contribute to patellar maltracking. Question trace suprapatellar joint effusion. Well corticated small ossicle at the distal margin of the medial malleolus of the tibia, suggesting sequelae of prior remote injury versus unfused apophysis. 2 mm well-defined calcific density projects in the posterior soft tissues of the right lower leg. This could represent a small phlebolith but is otherwise indeterminate. Electronically signed by: Bunny Rueda MD 07/27/2019 8:02 AM CDT
== END ==
LOC: RAD 14:42
PROVIDERS: ATTEND Nurse Practitioner Family
DX: S83.011A Lateral subluxation of right patella, initial encounter (principal); M25.751 Osteophyte, right hip; M25.851 Other specified joint disorders, right hip; M79.89 Other specified soft tissue disorders; M89.9 Disorder of bone, unspecified

== ENCOUNTER → 2019-08-14 | Outpatient (CLI) | payer MEDICARE, OTHER ==
--- NOTE | 2019-08-17 09:07 | CT ---
EXAM DESCRIPTION: Lower Extremity CLINICAL HISTORY: RT LEG PAIN COMPARISON: Right Tibia/fibula radiograph 07/26/2019. Right femur radiograph 03/02/2018 TECHNIQUE: Extremity CT of the right tibia/fibula is performed with thin-section axial imaging. MPRs are created and reviewed as well. FINDINGS: BONE AND JOINTS: No acute displaced fracture or dislocation seen. Partially visualized small chronic bony avulsion along the anterior aspect of the lateral malleolus and inferior tip of the medial malleolus. No focal cortical thickening, bony erosion or aggressive periosteal reaction. No suspicious lytic or sclerotic osseous lesion. Mild knee osteoarthrosis with medial knee compartment joint space narrowing and subchondral sclerosis. Small knee joint effusion SOFT TISSUES: A small Martinez's cyst measures 4.3 x 1.2 cm. Mild atherosclerotic vascular calcifications are present. No drainable fluid collection or abscess. IMPRESSION: 1. No acute osseous abnormality involving the right tibia/fibula. 2. Chronic bimalleolar bony avulsions. 3. Mild right knee osteoarthrosis with small joint effusion. 4. Small Martinez's cyst. This exam was performed according to our departmental dose-optimization program, which includes automated exposure control, adjustment of the mA and/or kV according to patient size and/or use of iterative reconstruction technique. Electronically signed by: Chico Hudson DO 08/17/2019 9:06 AM CDT
== END ==
LOC: CT 16:48
PROVIDERS: ATTEND Nurse Practitioner Family
DX: M17.11 Unilateral primary osteoarthritis, right knee (principal); M71.21 Synovial cyst of popliteal space [Baker], right knee; M89.8X6 Other specified disorders of bone, lower leg

== ENCOUNTER 2019-09-04 11:44 | Emergency (ER) | payer MEDICARE, OTHER ==
[2019-09-04] MEDS ORDERED: SODIUM CHLORIDE 0.9% (FLUSH) 10 ML SYG IV PRN (11:49)
--- NOTE | 2019-09-04 11:50 | ED.PDOC ---
History of Present Illness - General Time Seen by Provider: 09/04/19 11:47 Source: patient - History of Present Illness Initial Comments: 68 yo female with PMH of HTN, chronic pain who presents with cc of Right hip pain following fall at home yesterday. Reports she was trying to move a box yesterday afternoon at home and she fell forward and struck her head and right hip against the ground. Reports chiefly pain to the right lateral and posterior hip region, constant, 10/10 severity, shooting, worse with weightbearing and ambulation and palpation, states has not taken any medicine for pain today for relief. Reports mild weakness in the leg due to pain but no numbness. Denies any bruising, swelling, deformity. She has been able to ambulate some with her walker. Reports also moderate right-sided headache and mild posterior neck pain. Denies any vision changes, chest pain, dyspnea, abdominal pain, urinary symptoms, leg swelling. Allergies/Adverse Reactions: Allergies Sulfamethoxazole w/Trimethoprim [From Bactrim] Allergy (Mild, Verified 09/04/19 11:56) CI Pigment Blue 63 [From Cymbalta] Allergy (Verified 09/04/19 11:56) Anaphylaxis Duloxetine [From Cymbalta] Allergy (Verified 09/04/19 11:56) Anaphylaxis Hydralazine Allergy (Verified 09/04/19 11:56) Other Ketorolac Tromethamine [From Toradol] Allergy (Verified 09/04/19 11:56) Hives shortness Metoclopramide [From Reglan] Allergy (Verified 09/04/19 11:56) Penicillin G Allergy (Verified 09/04/19 11:56) Other welps Tramadol Allergy (Verified 09/04/19 11:56) Other Fentanyl Adverse Reaction (Verified 09/04/19 11:56) Other mouth swell Ondansetron [From Zofran] Adverse Reaction (Verified 09/04/19 11:56) Other Pt claims this causes her to "blister" Vancomycin Adverse Reaction (Verified 09/04/19 11:56) Other pt stated if made her deaf Home Medications: Ambulatory Orders Alprazolam [Xanax] 1 mg PO TID PRN 10/07/16 Gabapentin 300 mg PO Q8H 10/07/16 HYDROcodone 10MG/APAP 325MG [[place] 10/325] 1 tab PO Q4H PRN 03/02/18 Nitroglycerin 0.3 mg [Nitrostat] 0.3 mg SL PRN 05/28/18 Pantoprazole Tablet [Protonix] 20 mg PO DAILY 06/06/18 Aspirin [Aspirin Adult Low Dose] 81 mg PO DAILY 06/29/18 Atorvastatin Calcium 40 mg PO BEDTIME 06/29/18 Carvedilol [Coreg] 6.25 mg PO BID 06/03/19 Losartan Potassium 25 mg PO BID 06/03/19 Lunesta 2 mg PO BEDTIME 06/03/19 Metoprolol Tartrate 50 mg PO BID 06/03/19 Potassium Chloride Tab [Micro-K] 0 meq PO DAILY 06/03/19 tiZANidine [Zanaflex] 4 mg PO Q8H PRN 06/03/19 Azithromycin IV [Zithromax IV] 500 mg IVPB Q24H vial 06/05/19 Benzonatate Perles [Tessalon Perles] 200 mg PO TID PRN cap 06/05/19 Bifidobacterium Infantis [Align] 4 mg PO BID cap 06/05/19 Linezolid IV [Zyvox IV] 600 mg IVPB Q12H bag 06/05/19 cefTRIAXone SODIUM [Rocephin] 1 gm IVPB Q24H vial 06/05/19 Clindamycin HCl 150 mg PO Q8HR #12 cap 07/06/19 Hydroxyzine HCl [Hydroxyzine Hydrochloride] 10 mg PO Q8HR PRN #14 tab 07/06/19 Review of Systems - Review of Systems Review of Systems: 09/04/19 12:05 as per HPI All other Systems: Reviewed and Negative Past Medical History (General) - Patient Medical History Hx Seizures: No Hx Stroke: No Hx Dementia: No Hx Asthma: No Hx of COPD: Yes Hx Cardiac Disorders: Yes Hx Congestive Heart Failure: Yes Hx Pacemaker: Yes Hx Hypertension: Yes Hx Thyroid Disease: No Hx Diabetes: Yes Hx Gastroesophageal Reflux: No Hx Renal Disease: No Hx Cancer: No Hx of HIV: No Hx Hepatitis C: No Hx MRSA: No MRSA Source:: Wound - Vaccination History Hx Tetanus, Diphtheria Vaccination: Yes Hx Influenza Vaccination: Yes Hx Pneumococcal Vaccination: Yes - Social History Hx Tobacco Use: No Hx Chewing Tobacco Use: No Hx Alcohol Use: No Hx Substance Use: No Hx Substance Use Treatment: No Hx Depression: No Hx Physical Abuse: No Hx Emotional Abuse: No Hx Suspected Abuse: No - Female History Patient : No Family Medical History - Family History Father Living Status: Cause of : copd Mother Living Status: Cause of : colon ca Son Name: mother Living Status: Age at (years of age): 54 Cause of : colon cancer Hx Family Asthma: No Hx Family Congestive Heart Failure: No Hx Family Hypertension: Yes Hx Family Stroke: Yes Hx Cardiac Disease: No Hx Family Diabetes: No Hx Family Cancer: Yes Hx Family;Other: Crohn's Physical Exam - Physical Exam General Appearance: Alert, Comfortable, No apparent distress Eyes, Ears, Nose, Throat: PERRL/EOMI, normal ENT inspection Neck: non-tender, full range of motion, supple, normal inspection Cardiovascular/Respiratory: regular rate, rhythm, no M/R/G, normal peripheral pulses, no JVD, normal breath sounds Gastrointestinal/Abdominal: non-tender Back: normal inspection, no CVA tenderness, no vertebral tenderness Thigh/Hip: normal inspection, no evidence of injury, other - Moderate lateral and posterior right hip TTP without noted bruising, swelling, deformity. Strength and sensation throughout the right lower extremity appear intact. Range of motion of the right hip moderately limited due to pain. Leg: normal inspection, no evidence of injury Knee: normal inspection, non-tender, no evidence of injury, normal ROM Ankle: normal inspection, non-tender, no evidence of injury, normal ROM Foot: normal inspection, non-tender Neuro/Tendon: normal sensation, normal motor functions Mental Status: alert, oriented x 3 Skin: normal color, warm/dry Progress - Progress Progress: 09/04/19 12:07 Ground-level fall -1 day ago with reported pain/injury to: head, neck, R hip/buttocks region -consider: Right hip fracture versus contusion most likely, pelvic fracture, skull fracture, C-spine fracture, intracranial hemorrhage, concussion, ACS, chronic pain flare, other -Obtain CT of the head and C-spine as well as x-ray of the chest, right hip, pelvis. Obtain blood work and cardiac work-up. Place PIV and will give morphine 4 mg IV for pain control 09/04/19 13:06 -Attempts to draw blood in place IV unsuccessful after several attempts. Patient is refusing any further attempts by the nursing staff. X-ray and CT images reviewed by myself and I see no evidence of acute fracture. Radiology reads confirm the same. Will give morphine 6 mg IM for pain control for suspected right hip contusion and patient with high opioid tolerance given her chronic pain and frequent narcotic usage. -On the CT of her C-spine, patient was incidentally noted to have a 1.5 x 1.1 cm indeterminate mass just posterior to the left pterygoid muscle. Radiology is recommending ENT consultation. I spoke with the patient's PCP, Scooter Goel, regarding this who states that he will follow-up with the patient in his clinic on Saturday and refer her to the ENT clinic as an outpatient for further work-up. I also spoke with the patient and her regarding this and all questions addressed. 09/04/19 13:29 -C-collar cleared at bedside by myself. Pain is improving with ED treatment and patient remains stable. -DC to home in good condition, ED return warnings discussed. Emile Reece MD Billing #[id number] - EKG/XRAY/CT EKG: Sinus - With incomplete R BBB, HR 65, no ST elevations noted, Q waves noted in anteroseptal and inferior leads indicative of likely prior PA, minimal ST segment depressions in the lateral leads nonspecific in nature, axis normal, intervals normal, appears largely unchanged from 07/07/19 EKG Departure - Departure Clinical Impression: Intracranial mass Contusion of hip, right Qualifiers: Encounter type: initial encounter Qualified Code(s): S70.01XA - Contusion of right hip, initial encounter Fall at home Qualifiers: Encounter type: initial encounter Qualified Code(s): W19.XXXA - Unspecified fall, initial encounter; Y92.009 - Unspecified place in unspecified non- institutional (private) residence as the place of occurrence of the external cause Time of Disposition: 13:26 Disposition: Discharge to Home or Self Care Condition: Good Instructions: Contusion (DC), Hip Pain (DC) Diet: resume usual diet Activity: increase activity as tolerated Referrals: JANET GOEL IV, OIL EXPLORATION ENGINEER [Primary Care Provider] - 1-5 Days Home Medications: Ambulatory Orders Alprazolam [Xanax] 1 mg PO TID PRN 10/07/16 Gabapentin 300 mg PO Q8H 10/07/16 HYDROcodone 10MG/APAP 325MG [[place] 10/325] 1 tab PO Q4H PRN 03/02/18 Nitroglycerin 0.3 mg [Nitrostat] 0.3 mg SL PRN 05/28/18 Pantoprazole Tablet [Protonix] 20 mg PO DAILY 06/06/18 Aspirin [Aspirin Adult Low Dose] 81 mg PO DAILY 06/29/18 Atorvastatin Calcium 40 mg PO BEDTIME 06/29/18 Carvedilol [Coreg] 6.25 mg PO BID 06/03/19 Losartan Potassium 25 mg PO BID 06/03/19 Lunesta 2 mg PO BEDTIME 06/03/19 Metoprolol Tartrate 50 mg PO BID 06/03/19 Potassium Chloride Tab [Micro-K] 0 meq PO DAILY 06/03/19 tiZANidine [Zanaflex] 4 mg PO Q8H PRN 06/03/19 Azithromycin IV [Zithromax IV] 500 mg IVPB Q24H vial 06/05/19 Benzonatate Perles [Tessalon Perles] 200 mg PO TID PRN cap 06/05/19 Bifidobacterium Infantis [Align] 4 mg PO BID cap 06/05/19 Linezolid IV [Zyvox IV] 600 mg IVPB Q12H bag 06/05/19 cefTRIAXone SODIUM [Rocephin] 1 gm IVPB Q24H vial 06/05/19 Clindamycin HCl 150 mg PO Q8HR #12 cap 07/06/19 Hydroxyzine HCl [Hydroxyzine Hydrochloride] 10 mg PO Q8HR PRN #14 tab 07/06/19 Additional Instructions: You may continue to rest and apply cold packs to the affected area for 15-20 minutes every 1-2 hours for the next 2 to 3 days to help limit pain and swelling. He may also continue to use OTC medications for pain control. You m ay continue to use your home pain medications as well for breakthrough pain. Do not drive or operate heavy machinery while taking these medications as it may cause you to be drowsy. Follow-up closely with your primary care physician for repeat evaluation. If you are having issues returning to normal activity you may need referral to physical therapy for rehab. As discussed during this visit, you were incidentally noted to have a 1.5 x 1 cm circular mass in the skull on the left side. It is uncertain what is the cause of the mass but the radiologist is recommending ENT consultation. Your PCP is aware of this and will see you in the clinic on Saturday to work on outpatient referral to the ENT clinic for further work-up.
[2019-09-04] MEDS ORDERED: MORPHINE SULFATE INJ 10 MG/ML VIAL IV ONE (12:02)
--- NOTE | 2019-09-04 12:22 | RAD ---
EXAM DESCRIPTION: Hip,Right 2 Views CLINICAL HISTORY: 68 years Female, fall, R hip pain COMPARISON: June 03, 2019 Findings: 2 views/radiographs Location: Right hip/pelvis No acute fracture or dislocation. Moderate right hip osteoarthritis. Soft tissues are unremarkable. IMPRESSION: No evidence of acute process in the right hip. Electronically signed by: Frankie Rivers MD 09/04/2019 12:21 PM CDT
--- NOTE | 2019-09-04 12:56 | RAD ---
1 radiograph pelvis. Indication: ground level fall, R hip and buttocks pain Comparison: 01/09/16 Impression: No fracture identified. Evaluation for fracture is limited given the degree of osteopenia. If high clinical concern for acute fracture, correlation with MRI recommended given its greater sensitivity in the osteopenic patient. If the patient cannot tolerate MRI imaging or more urgent imaging is required, CT could be performed, however it is less sensitive in the osteopenic patient when compared to MRI. Mild to moderate bilateral hip OA. Electronically signed by: Cas Man MD 09/04/2019 12:55 PM CDT
--- NOTE | 2019-09-04 13:00 | CT ---
Study: CT of the Head. Indication: ground-level fall, closed head injury Technique: Axial CT images of the head were acquired without intravenous contrast. This exam was performed according to our departmental dose-optimization program, which includes automated exposure control, adjustment of the mA and/or kV according to patient size and/or use of iterative reconstruction technique. Comparison: None. Findings: No acute ischemia, acute hemorrhage, mass, mass effect, midline shift, or extra-axial fluid collection identified by CT. Ventricles are normal in configuration without hydrocephalus. Brain parenchyma demonstrates a normal appearance for patient age. Paranasal sinuses are adequately aerated. Mastoid air cells are adequately aerated. Osseous structures and soft tissues are unremarkable. Impression: No acute intracranial abnormality by CT. Electronically signed by: Cas Man MD 09/04/2019 12:59 PM CDT
[2019-09-04] MEDS ORDERED: MORPHINE SULFATE INJ 10 MG/ML VIAL IM ONE (13:02)
--- NOTE | 2019-09-04 13:09 | CT ---
Study: CT cervical spine. Indication: ground-level fall, neck pain Technique: Axial CT images were acquired through the cervical spine without intravenous contrast. Coronal and sagittal reformats performed. This exam was performed according to our departmental dose-optimization program, which includes automated exposure control, adjustment of the mA and/or kV according to patient size and/or use of iterative reconstruction technique. Comparison: March 02, 2018. September 27, 2016 Findings: No acute fracture or subluxation. Mild kyphosis centered at C5-C6. Mild to moderate space height loss at this level the disc bulge produces at least mild spinal canal narrowing as well as mild to moderate bilateral foraminal narrowing. Posterior to the left pterygoid musculature on axial image 29 is an ovoid 15 mm x 11 mm soft tissue density nodule immediately anterior to the styloid process. This is indeterminate. Impression: No acute cervical fracture identified. Small indeterminate ovoid mass versus enlarged lymph node posterior to the left pterygoid musculature. ENT consultation recommended. Electronically signed by: Cas Man MD 09/04/2019 1:08 PM CDT
[2019-09-04 14:08] VITALS: BP 167/84; TEMP 98.9; O2SAT 93
== END 2019-09-04 13:46 | disposition home or self-care (01) ==
LOC: ER 11:44
DX: G93.9 Disorder of brain, unspecified (principal); I45.10 Unspecified right bundle-branch block; S70.01XA Contusion of right hip, initial encounter; M54.2 Cervicalgia; I50.9 Heart failure, unspecified; I11.0 Hypertensive heart disease with heart failure; Z79.82 Long term (current) use of aspirin; Z79.899 Other long term (current) drug therapy; W19.XXXA Unspecified fall, initial encounter; Y92.009 Unspecified place in unspecified non-institutional (private) residence as the place of occurrence of the external cause
CPT/HCPCS: 70450; 72125; 72170; 73502; 93005; J2270

== ENCOUNTER 2019-10-09 12:14 | Emergency (ER) | payer MEDICARE, OTHER ==
--- NOTE | 2019-10-09 12:36 | ED.PDOC ---
History of Present Illness - General Time Seen by Provider: 10/09/19 12:17 Source: patient, RN notes reviewed, Vital Signs reviewed, family - History of Present Illness Initial Comments: This is a 69-year-old female with multiple medical comorbidities who is well- known to the emergency department presenting today for "worms/parasites coming out of me". She states she has pulled worms out of her stool, out of her skin, out of her umbilicus, out of her nose, and out of her hair. She has multiple plastic bags with paper towels and adult diapers with round pieces of tissue that appear to be consistent with scabs. She states she has pulled these out of her stool, out of her nose, and out of her hair, as well as her umbilicus. states he has never seen any of the worms. She has had no vomiting, no diarrhea, no shortness of breath. No fever. Allergies/Adverse Reactions: Allergies Sulfamethoxazole w/Trimethoprim [From Bactrim] Allergy (Mild, Verified 10/09/19 12:43) CI Pigment Blue 63 [From Cymbalta] Allergy (Verified 10/09/19 12:43) Anaphylaxis Duloxetine [From Cymbalta] Allergy (Verified 10/09/19 12:43) Anaphylaxis Hydralazine Allergy (Verified 10/09/19 12:43) Other Ketorolac Tromethamine [From Toradol] Allergy (Verified 10/09/19 12:43) Hives shortness Metoclopramide [From Reglan] Allergy (Verified 10/09/19 12:43) Penicillin G Allergy (Verified 10/09/19 12:43) Other welps Tramadol Allergy (Verified 10/09/19 12:43) Other Fentanyl Adverse Reaction (Verified 10/09/19 12:43) Other mouth swell Ondansetron [From Zofran] Adverse Reaction (Verified 10/09/19 12:43) Other Pt claims this causes her to "blister" Vancomycin Adverse Reaction (Verified 10/09/19 12:43) Other pt stated if made her deaf Home Medications: Ambulatory Orders Alprazolam [Xanax] 1 mg PO TID PRN 10/07/16 Gabapentin 300 mg PO Q8H 10/07/16 HYDROcodone 10MG/APAP 325MG [[place] 10/325] 1 tab PO Q4H PRN 03/02/18 Nitroglycerin 0.3 mg [Nitrostat] 0.3 mg SL PRN 05/28/18 Pantoprazole Tablet [Protonix] 20 mg PO DAILY 06/06/18 Aspirin [Aspirin Adult Low Dose] 81 mg PO DAILY 06/29/18 Atorvastatin Calcium 40 mg PO BEDTIME 06/29/18 Carvedilol [Coreg] 6.25 mg PO BID 06/03/19 Losartan Potassium 25 mg PO BID 06/03/19 Lunesta 2 mg PO BEDTIME 06/03/19 Metoprolol Tartrate 50 mg PO BID 06/03/19 Potassium Chloride Tab [Micro-K] 0 meq PO DAILY 06/03/19 tiZANidine [Zanaflex] 4 mg PO Q8H PRN 06/03/19 Azithromycin IV [Zithromax IV] 500 mg IVPB Q24H vial 06/05/19 Benzonatate Perles [Tessalon Perles] 200 mg PO TID PRN cap 06/05/19 Bifidobacterium Infantis [Align] 4 mg PO BID cap 06/05/19 Linezolid IV [Zyvox IV] 600 mg IVPB Q12H bag 06/05/19 cefTRIAXone SODIUM [Rocephin] 1 gm IVPB Q24H vial 06/05/19 Clindamycin HCl 150 mg PO Q8HR #12 cap 07/06/19 Hydroxyzine HCl [Hydroxyzine Hydrochloride] 10 mg PO Q8HR PRN #14 tab 07/06/19 Review of Systems - Review of Systems Constitutional: Denies: chills, fever Respiratory: Denies: cough, short of breath Gastrointestinal/Abdominal: States: other - "Worms in stool". Denies: diarrhea, nausea, vomiting Musculoskeletal: Denies: joint pain, muscle stiffness Skin: Denies: lesions, rash Past Medical History (General) - Patient Medical History Hx Seizures: No Hx Stroke: No Hx Dementia: No Hx Asthma: No Hx of COPD: Yes Hx Cardiac Disorders: Yes Hx Congestive Heart Failure: Yes Hx Pacemaker: Yes Hx Hypertension: Yes Hx Thyroid Disease: No Hx Diabetes: Yes Hx Gastroesophageal Reflux: No Hx Renal Disease: No Hx Cancer: No Hx of HIV: No Hx Hepatitis C: No Hx MRSA: No MRSA Source:: Wound - Vaccination History Hx Tetanus, Diphtheria Vaccination: Yes Hx Influenza Vaccination: Yes Hx Pneumococcal Vaccination: Yes - Social History Hx Tobacco Use: No Hx Chewing Tobacco Use: No Hx Alcohol Use: No Hx Substance Use: No Hx Substance Use Treatment: No Hx Depression: No Hx Physical Abuse: No Hx Emotional Abuse: No Hx Suspected Abuse: No - Female History Patient : No Family Medical History - Family History Father Living Status: Cause of : copd Mother Living Status: Cause of : colon ca Son Name: mother Living Status: Age at (years of age): 54 Cause of : colon cancer Hx Family Asthma: No Hx Family Congestive Heart Failure: No Hx Family Hypertension: Yes Hx Family Stroke: Yes Hx Cardiac Disease: No Hx Family Diabetes: No Hx Family Cancer: Yes Hx Family;Other: Crohn's Physical Exam - Physical Exam General Appearance: Alert, Comfortable Ears, Nose, Throat: normal ENT inspection, normal pharynx, other - Nose appears completely normal, no lesions, no foreign bodies, certainly no worms/parasites Neck: full range of motion, supple, normal inspection Respiratory: lungs clear, normal breath sounds, no respiratory distress, no accessory muscle use Cardiovascular/Chest: normal peripheral pulses, regular rate, rhythm, no edema Gastrointestinal/Abdominal: non tender, soft Back Exam: normal inspection, no CVA tenderness, no vertebral tenderness Extremity: normal range of motion, non-tender, normal inspection Neurologic: alert, normal mood/affect, oriented x 3 Skin Exam: normal color, warm/dry, rash - There are multiple well-healed excoriated lesions to the arms and abdominal wall. There are no scabbed over lesions. Progress - Progress Progress: MDM: Patient presenting with reported parasites/worms in her stool, protruding from her skin, coming out of her nose, as well as her hair. Nothing resembling a worm or parasite was noted on exam. She brought in multiple plastic bags with paper towels with what appeared to be scabs or pieces of skin. Certainly nothing that appears to be parasitic worm. 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 Will send stool for O&P due to patient's concern for worms in stool, But will not wait for study to be resulted.. Recommended follow-up with PCP in 3 to 5 days for recheck And they can follow on O&P results. Strict warnings given to return the emergency room for worsening or other concerns. Departure - Departure Clinical Impression: Worms in stool Disposition: Discharge to Home or Self Care Condition: Good Departure Forms: ED Discharge - Pt. Copy, Patient Portal Self Enrollment Referrals: JANET GAMEZ IV, [employer] [Primary Care Provider] - 1-5 Days Home Medications: Ambulatory Orders Alprazolam [Xanax] 1 mg PO TID PRN 10/07/16 Gabapentin 300 mg PO Q8H 10/07/16 HYDROcodone 10MG/APAP 325MG [[place] 10/325] 1 tab PO Q4H PRN 03/02/18 Nitroglycerin 0.3 mg [Nitrostat] 0.3 mg SL PRN 05/28/18 Pantoprazole Tablet [Protonix] 20 mg PO DAILY 06/06/18 Aspirin [Aspirin Adult Low Dose] 81 mg PO DAILY 06/29/18 Atorvastatin Calcium 40 mg PO BEDTIME 06/29/18 Carvedilol [Coreg] 6.25 mg PO BID 06/03/19 Losartan Potassium 25 mg PO BID 06/03/19 Lunesta 2 mg PO BEDTIME 06/03/19 Metoprolol Tartrate 50 mg PO BID 06/03/19 Potassium Chloride Tab [Micro-K] 0 meq PO DAILY 06/03/19 tiZANidine [Zanaflex] 4 mg PO Q8H PRN 06/03/19 Azithromycin IV [Zithromax IV] 500 mg IVPB Q24H vial 06/05/19 Benzonatate Perles [Tessalon Perles] 200 mg PO TID PRN cap 06/05/19 Bifidobacterium Infantis [Align] 4 mg PO BID cap 06/05/19 Linezolid IV [Zyvox IV] 600 mg IVPB Q12H bag 06/05/19 cefTRIAXone SODIUM [Rocephin] 1 gm IVPB Q24H vial 06/05/19 Clindamycin HCl 150 mg PO Q8HR #12 cap 07/06/19 Hydroxyzine HCl [Hydroxyzine Hydrochloride] 10 mg PO Q8HR PRN #14 tab 07/06/19
[2019-10-09 12:43] VITALS: TEMP 97.1
[2019-10-09 13:27] VITALS: BP 116/86; O2SAT 92
== END 2019-10-09 13:20 | disposition home or self-care (01) ==
LOC: ER 12:14
DX: B82.9 Intestinal parasitism, unspecified (principal); J44.9 Chronic obstructive pulmonary disease, unspecified; I50.9 Heart failure, unspecified; I11.0 Hypertensive heart disease with heart failure; E11.9 Type 2 diabetes mellitus without complications; Z95.0 Presence of cardiac pacemaker; Z79.82 Long term (current) use of aspirin; Z79.899 Other long term (current) drug therapy; Z88.2 Allergy status to sulfonamides; Z88.8 Allergy status to other drugs, medicaments and biological substances; Z88.0 Allergy status to penicillin; Z88.5 Allergy status to narcotic agent; Z88.1 Allergy status to other antibiotic agents

== ENCOUNTER → 2019-10-15 | Outpatient (CLI) | payer MEDICARE, OTHER | LOC: LAB.O 12:41 | PROVIDERS: ATTEND Family Medicine | DX: I10 Essential (primary) hypertension (principal); R53.83 Other fatigue; Z13.220 Encounter for screening for lipoid disorders ==

== ENCOUNTER → 2019-12-22 | Outpatient (CLI) | payer MEDICARE, OTHER ==
--- NOTE | 2019-12-23 08:50 | CT ---
EXAM DESCRIPTION: Cervical Spine CLINICAL HISTORY: SPONDYLOSIS COMPARISON: September 04, 2019 TECHNIQUE: Cervical CT is performed with thin-section axial imaging. MPRs are created and reviewed as well. This exam was performed according to our departmental dose-optimization program, which includes automated exposure control, adjustment of the mA and/or kV according to patient size and/or use of iterative reconstruction technique. FINDINGS: CT cervical spine demonstrates rotation of the head and upper cervical spine towards the right and more normal alignment at the base of the cervical spine. Again no evidence of fracture noted. Asymmetric hypertrophic right C2-3 facet joint again noted. No malalignment noted. No bony fracture or injury evident. Disc degenerative narrowing and anterior spurring present at C5-6 with very minimal narrowing at C6-7 and moderate disc narrowing and/or partial disc calcification and fusion evident at C7-T1 and normal alignment. Loss of normal lordosis centered at the C5-6 level present. Mild annular prominence without bony ridging at this level noted. In the soft tissues on the left behind the medial pterygoid and just anterior to the elongated left styloid process is an oval soft tissue density that represents an adjacent cyst or enlarged lymph node. This lies just medial to the deep lobe of the left parotid gland. The abnormality is unchanged from three months earlier. The soft tissue component measures 1.8 x 1.0 cm in size and is approximately 1.7 cm in craniocaudal length. An approximate 5 x 8 mm dense calcification in the posterior aspect of the soft tissue density is present and of uncertain significance. This calcification appears separate from the elongated styloid process. If not already performed ENT consultation this abnormality recommended. No lateralizing disc herniation is seen. No severe spinal canal or foraminal stenosis noted. IMPRESSION: 1. Rotation of the upper cervical spine towards the right and reversal of cervical lordosis at the C5-6 level without malalignment or spinal canal stenosis 2. Degenerative disc narrowing and mild anterior spurring at C5-6 without significant posterior disc bulge or spinal canal or foraminal stenosis. 3. Disc narrowing and partial interbody fusion at C7-T1 in normal alignment. 4. Asymmetric right three facet hypertrophy and degenerative changes without significant canal or lateral recess stenosis. 5. Persistent soft tissues cyst/mass on the left with calcification in the posterior portion of the lesion, interposed between the medial pterygoid and deep lobe of the left parotid gland and lying just anterior to the elongated left styloid process. This is unchanged from prior September study and could represent a partially calcified enlarged lymph node 1.8 x 1.0 cm in size or represent a small parapharyngeal cyst or mass possibly related to the elongated styloid process. ENT consultation recommended if this has not been performed. Electronically signed by: Andrew Rg MD 12/23/2019 8:48 AM CDT
== END ==
LOC: CT 13:30
PROVIDERS: ATTEND Family Medicine Sports Medicine
DX: M50.322 Other cervical disc degeneration at C5-C6 level (principal); M43.23 Fusion of spine, cervicothoracic region; M25.78 Osteophyte, vertebrae; R22.1 Localized swelling, mass and lump, neck; M40.292 Other kyphosis, cervical region; M53.82 Other specified dorsopathies, cervical region; M47.817 Spondylosis without myelopathy or radiculopathy, lumbosacral region

== ENCOUNTER → 2019-12-23 | Outpatient (CLI) | payer MEDICARE, OTHER ==
--- NOTE | 2019-12-24 12:05 | CT ---
EXAM DESCRIPTION: Thoracic Spine CT CLINICAL HISTORY: SPONDYLOSIS COMPARISON: None Available. TECHNIQUE: Thoracic CT is performed with thin-section axial imaging. MPRs are created and reviewed as well. FINDINGS: Axial images are negative for fracture. Mild posterior annular bulges without significant spinal stenosis. Old calcified disc protrusion of small size is seen posteriorly in the midline at T9-T10 measuring 3 mm in AP dimension. Prominent Schmorl's node superiorly at T11. Multilevel degenerative disc space narrowing with vacuum disc phenomenon. Degenerative disc disease in the upper L-spine. Sagittal images are negative for vertebral compressions. No spinal canal compromise. No bony destructive lesion. Posteromedial ribs appear intact. Right hemidiaphragm is elevated. Coronal images show multilevel disc space narrowing with mild spurring. Most advanced degenerative disc disease is at L1-2 level. IMPRESSION: Negative for fracture. Electronically signed by: Royce Samano MD 12/24/2019 12:03 PM CDT
== END ==
LOC: CT 13:30
PROVIDERS: ATTEND Family Medicine Sports Medicine
DX: M47.817 Spondylosis without myelopathy or radiculopathy, lumbosacral region (principal)

== ENCOUNTER → 2019-12-24 | Outpatient (CLI) | payer MEDICARE, OTHER ==
--- NOTE | 2019-12-25 11:49 | CT ---
EXAM DESCRIPTION: Lumbar Spine CLINICAL HISTORY: 69 years, Female, SPONDYLOSIS LUMBAR REGION COMPARISON: February 10, 2019 TECHNIQUE: Lumbar CT with thin-section axial imaging with reconstructed MPR images reviewed as well. This exam was performed according to our departmental dose-optimization program, which includes automated exposure control, adjustment of the mA and/or kV according to patient size and/or use of iterative reconstruction technique. FINDINGS: Minimal levoscoliosis of the spine centered at approximately the L1-2 level is little changed from prior study. Degenerative disc narrowing and vacuum phenomena on the right worse than the left is present at this level and little changed from prior study. Vertebral height is maintained except for unchanged modest impaction of the L3 superior endplate on the right in comparison to previous 2019 study. Retroperitoneal and paraspinous structures are unremarkable with mild aortic atherosclerosis without aneurysm. T11-12: Mild disc narrowing, normal disc contour with modest left greater than right facet arthropathy. Adequate central canal. T12-L1: Mild disc narrowing and minimal vacuum phenomenon at the anterior disc space with mild annular bulge within the central canal. Moderate far lateral left disc protrusion in the mid and exit of the left T12 neural foramen. Mild facet arthropathy with only mild narrowing of the exit of the neural foramen. L1-2: Narrowed degenerative disc space with vacuum phenomena anteriorly and on the right with less severe changes on the left. 2 mm broad-based annular bulge with adequate canal. Mild symmetric facet arthropathy. Adequate right and left neural foramina. No neural compression noted. L2-3: 2 mm retrolisthesis L2 on L3 with mild annular prominence on the right and moderately large central and left parasagittal disc protrusion extending into the left lateral recess and neural foramen. Borderline AP diameter canal stenosis and moderate left-sided neural compression at this level suspected. Slight worsening of asymmetric left-sided changes at this level evident. Moderate facet facet arthropathy with moderate right foraminal narrowing from facet disease and more severe left foraminal narrowing from facet and disc disease. L3-4: Preserved disc height with broad-based 2-3 mm annular bulge with adequate canal and lateral recesses. Asymmetric right greater than left facet arthropathy. Moderate left and more severe right foraminal stenosis secondary to annular bulge and facet disease. No lateralizing herniation seen. L4-5: Mild 2 mm broad-based symmetric annular bulge with adequate canal. Mild facet and ligamentum flavum hypertrophy. Adequate central canal with moderate narrowing both L4 neural foramina. No lateralizing changes seen. L5-S1: Preserved disc height 2 mm annular bulge without lateralizing herniation. Symmetric mild facet and ligamentum flavum hypertrophy. Modest narrowing at the entrance to each L5 neural foramen from facet hypertrophy and annular bulge. No lateralizing herniation. IMPRESSION: 1. Essentially stable lumbar spondylosis with normal alignment of the spine and advanced predominantly right-sided degenerative disc changes at L1-2 with disc space narrowing and old mild impaction of the superior endplate of L3 on the right. Mild levoscoliosis centered at L1-2 is unchanged with no evidence of spondylolisthesis. 2. 2 mm broad-based annular bulge L1-2 with adequate canal and foramina. 3. 2 mm retrolisthesis L2 on L3 with right-sided annular prominence and moderately large central and left parasagittal disc protrusion, slightly more prominent than previously seen with borderline AP diameter canal stenosis. Moderate right foraminal narrowing from facet disease and more severe left foraminal narrowing from disc bulge and facet disease. 4. Annular bulge symmetric at L3-4 with right greater than left facet arthropathy with moderate left and more significant right foraminal stenosis. No lateralizing herniation. 5. 2 mm annular bulge L4-5 without lateralizing aeration. Moderate narrowing both L4 neural foramina from mild facet disease and annular bulge. 6. 2 mm annular bulge L5-S1 with moderate L5 foraminal narrowing bilaterally from facet hypertrophy. Electronically signed by: Andrew Rg MD 12/25/2019 11:47 AM CDT
== END ==
LOC: CT 13:30
PROVIDERS: ATTEND Family Medicine Sports Medicine
DX: M47.817 Spondylosis without myelopathy or radiculopathy, lumbosacral region (principal); M51.26 Other intervertebral disc displacement, lumbar region; M51.86 Other intervertebral disc disorders, lumbar region; M43.16 Spondylolisthesis, lumbar region; M41.86 Other forms of scoliosis, lumbar region; M24.28 Disorder of ligament, vertebrae

== ENCOUNTER 2019-12-31 12:08 | Emergency (ER) | payer MEDICARE, OTHER ==
[2019-12-31] MEDS ORDERED: HYDROcodone 7.5MG/APAP 325MG 1 EA TAB PO ONE (12:28)
--- NOTE | 2019-12-31 13:28 | RAD ---
EXAM DESCRIPTION: Chest,2 Views CLINICAL HISTORY: sob COMPARISON: Previous study July 07, 2019 TECHNIQUE: PA/lateral FINDINGS: Cardiac pacer is in place. Heart size is large with increased pulmonary vascularity. No pleural effusion or pneumothorax. Patchy infiltrate in the right lung base with discoid atelectasis in the lingula and medial left lower lobe. Right hemidiaphragm is mildly elevated. Gallbladder clips in the right upper quadrant. Lateral view shows intact sternum and T-spine. IMPRESSION: Large heart with increased vascularity. Patchy infiltrate in the right lung base with partial volume loss in the lingula and left lower lobe. Electronically signed by: Royce Samano MD 12/31/2019 1:27 PM CDT
[2019-12-31] MEDS ORDERED: levoFLOXacin 500 MG TAB PO ONE (14:20)
--- NOTE | 2019-12-31 14:51 | ED.PDOC ---
History of Present Illness - General Chief Complaint: Respiratory Problem Stated Complaint: Unable to take deep breath, chest pain Time Seen by Provider: 12/31/19 12:28 Source: patient Exam Limitations: no limitations - History of Present Illness Initial Comments: The patient is a 69-year-old female presented emergency room secondary to complaint of shortness of breath. The patient also does have multiple other long-term complaints. The patient is obviously extremely anxious and tearful upon arrival. She does apparently have longstanding lung disease as well as longstanding CHF and multiple pneumonias in the past. She presented secondary to feeling like she could not breathe very well this morning. No definite fevers. Mildly productive cough. She does have some right lower chest discomfort but has had multiple pneumonias in that area and does have some chronic pain there as well. Additionally her primary care doctor has been weaning her down on her hydrocodone which she takes for chronic pain. No syncope or near syncope. No known coronavirus exposure. Timing/Duration: 24 hours Severity: moderate Improving Factors: nothing Worsening Factors: movement Associated Symptoms: cough Allergies/Adverse Reactions: Allergies Sulfamethoxazole w/Trimethoprim [From Bactrim] Allergy (Mild, Verified 12/31/19 12:33) CI Pigment Blue 63 [From Cymbalta] Allergy (Verified 12/31/19 12:33) Anaphylaxis Duloxetine [From Cymbalta] Allergy (Verified 12/31/19 12:33) Anaphylaxis Hydralazine Allergy (Verified 12/31/19 12:33) Other Ketorolac Tromethamine [From Toradol] Allergy (Verified 12/31/19 12:33) Hives shortness Metoclopramide [From Reglan] Allergy (Verified 12/31/19 12:33) Penicillin G Allergy (Verified 12/31/19 12:33) Other welps Tramadol Allergy (Verified 12/31/19 12:33) Other Fentanyl Adverse Reaction (Verified 12/31/19 12:33) Other mouth swell Ondansetron [From Zofran] Adverse Reaction (Verified 12/31/19 12:33) Other Pt claims this causes her to "blister" Vancomycin Adverse Reaction (Verified 12/31/19 12:33) Other pt stated if made her deaf Home Medications: Ambulatory Orders Alprazolam [Xanax] 1 mg PO TID PRN 10/07/16 Gabapentin 300 mg PO Q8H 10/07/16 HYDROcodone 10MG/APAP 325MG [[place] 10/325] 1 tab PO Q4H PRN 03/02/18 Nitroglycerin 0.3 mg [Nitrostat] 0.3 mg SL PRN 05/28/18 Pantoprazole Tablet [Protonix] 20 mg PO DAILY 06/06/18 Aspirin [Aspirin Adult Low Dose] 81 mg PO DAILY 06/29/18 Atorvastatin Calcium 40 mg PO BEDTIME 06/29/18 Carvedilol [Coreg] 6.25 mg PO BID 06/03/19 Losartan Potassium 25 mg PO BID 06/03/19 Lunesta 2 mg PO BEDTIME 06/03/19 Metoprolol Tartrate 50 mg PO BID 06/03/19 Potassium Chloride Tab [Micro-K] 0 meq PO DAILY 06/03/19 tiZANidine [Zanaflex] 4 mg PO Q8H PRN 06/03/19 Azithromycin IV [Zithromax IV] 500 mg IVPB Q24H vial 06/05/19 Benzonatate Perles [Tessalon Perles] 200 mg PO TID PRN cap 06/05/19 Bifidobacterium Infantis [Align] 4 mg PO BID cap 06/05/19 Linezolid IV [Zyvox IV] 600 mg IVPB Q12H bag 06/05/19 Hydroxyzine HCl [Hydroxyzine Hydrochloride] 10 mg PO Q8HR PRN #14 tab 07/06/19 levoFLOXacin [Levaquin] 500 mg PO DAILY #4 tab 12/31/19 Review of Systems - Review of Systems Constitutional: States: malaise EENTM: States: no symptoms reported Respiratory: States: cough Cardiology: States: chest pain Gastrointestinal/Abdominal: States: no symptoms reported Genitourinary: States: no symptoms reported Musculoskeletal: States: no symptoms reported Skin: States: no symptoms reported Neurological: States: no symptoms reported Endocrine: States: no symptoms reported All other Systems: No Change from Baseline Past Medical History (General) - Patient Medical History Hx Seizures: No Hx Stroke: No Hx Dementia: No Hx Asthma: No Hx of COPD: Yes Hx Cardiac Disorders: Yes Hx Congestive Heart Failure: Yes Hx Pacemaker: Yes Hx Hypertension: Yes Hx Thyroid Disease: No Hx Diabetes: Yes Hx Gastroesophageal Reflux: No Hx Renal Disease: No Hx Cancer: No Hx of HIV: No Hx Hepatitis C: No Hx MRSA: No MRSA Source:: Wound Surgical History: appendectomy, cholecystectomy, Hysterectomy - Vaccination History Hx Tetanus, Diphtheria Vaccination: Yes Hx Influenza Vaccination: Yes Hx Pneumococcal Vaccination: Yes - Social History Hx Tobacco Use: No Hx Chewing Tobacco Use: No Hx Alcohol Use: No Hx Substance Use: No Hx Substance Use Treatment: No Hx Depression: No Hx Physical Abuse: No Hx Emotional Abuse: No Hx Suspected Abuse: No - Female History Patient : No Family Medical History - Family History Father Living Status: Cause of : copd Mother Living Status: Cause of : colon ca Son Name: mother Living Status: Age at (years of age): 54 Cause of : colon cancer Hx Family Asthma: No Hx Family Congestive Heart Failure: No Hx Family Hypertension: Yes Hx Family Stroke: Yes Hx Cardiac Disease: No Hx Family Diabetes: No Hx Family Cancer: Yes Hx Family;Other: Crohn's Physical Exam - Physical Exam General Appearance: Alert, Anxious Eye Exam: bilateral normal Ears, Nose, Throat: hearing grossly normal, normal pharynx Neck: non-tender Respiratory: lungs clear, normal breath sounds, no respiratory distress, no accessory muscle use Cardiovascular/Chest: normal peripheral pulses, regular rate, rhythm, no edema Peripheral Pulses: radial,right: 2+, radial,left: 2+ Gastrointestinal/Abdominal: non tender, soft Rectal Exam: deferred Back Exam: no CVA tenderness, no vertebral tenderness Extremity: non-tender, normal inspection, no pedal edema, normal capillary refill Neurologic: [facility] II-XII nml as tested, alert, oriented x 3, other - The patient is highly anxious and tearful Skin Exam: normal color Comments: Vital Signs - 24 hr 12/31/19 12/31/19 12:09 12:27 Temperature 98.6 F Pulse Rate [ 60 68 Right Radial] Respiratory 22 22 Rate Blood Pressure 178/95 [Left Arm] O2 Sat by Pulse 99 Oximetry Progress - Progress Progress: 12/31/19 14:52 The patient is a 69-year-old female presented emergency room secondary to some shortness of breath chest pain from the right side. The patient does have some scarring of the right lower lung field but may also have the start of pneumonia explaining her symptoms there. The patient is going to be placed on 5 days of Levaquin. She has not hypoxic and laboratory work is reassuring. I do want her to follow back up with her primary care doctor in the middle of next week. ER warnings given. michelle franklin [phone] - Results/Orders Results/Orders: Chest x-ray shows possible mild right lower lobe infiltrate and possible lingular consolidation. EKG shows normal sinus rhythm at 67 bpm. Normal axis. Normal R wave progression. Right bundle branch block. Normal QT interval. No obvious ST segment or T wave changes indicative of acute ischemia. Laboratory Tests 12/31/19 12/31/19 12/31/19 12:40 12:40 12:40 WBC 5.2 RBC 4.87 Hgb 14.5 Hct 42.9 MCV 88.0 MCH 29.7 MCHC 33.8 RDW 15.5 H Plt Count 220 MPV 8.4 Absolute Neuts (auto) 3.00 Absolute Lymphs (auto) 1.60 Absolute Monos (auto) 0.40 Absolute Eos (auto) 0.10 Absolute Basos (auto) 0.10 Neutrophils % 58.1 Lymphocytes % 29.5 Monocytes % 8.4 Eosinophils % 1.2 Basophils % 2.8 H PT 10.9 INR 1.10 PTT (SP) 25.8 Sodium 139 Potassium 4.0 Chloride 104 Carbon Dioxide 25 Anion Gap 14.0 BUN 12 Creatinine 0.71 BUN/Creatinine Ratio 16.9 Random Glucose 113 H Serum Osmolality 278.1 Calcium 8.6 Total Bilirubin 0.9 AST 56 H ALT 37 Alkaline Phosphatase 125 H Creatine Kinase 50 CK-MB (CK-2) 2.7 CK-MB (CK-2) % Not Reportable Troponin I 0.02 B-Natriuretic Peptide 139.0 H Serum Total Protein 7.3 Albumin 3.6 Globulin 3.7 H Albumin/Globulin Ratio 1.0 L - EKG/XRAY/CT CT Ordered: No Departure - Departure Clinical Impression: Right lower lobe pneumonia Qualifiers: Pneumonia type: due to unspecified organism Qualified Code(s): J18.9 - Pneumonia, unspecified organism Disposition: Discharge to Home or Self Care Condition: Fair Departure Forms: ED Discharge - Pt. Copy, Patient Portal Self Enrollment Instructions: Pneumonia in Adults Diet: regular diet Activity: increase activity as tolerated Referrals: JANET GAMEZ IV, SHR[employer] PEELING MACHINE TENDER [Primary Care Provider] - 1-2 Weeks Prescriptions: levoFLOXacin [Levaquin] 500 mg PO DAILY #4 tab Home Medications: Ambulatory Orders Alprazolam [Xanax] 1 mg PO TID PRN 10/07/16 Gabapentin 300 mg PO Q8H 10/07/16 HYDROcodone 10MG/APAP 325MG [[place] 10325] 1 tab PO Q4H PRN 03/02/18 Nitroglycerin 0.3 mg [Nitrostat] 0.3 mg SL PRN 05/28/18 Pantoprazole Tablet [Protonix] 20 mg PO DAILY 06/06/18 Aspirin [Aspirin Adult Low Dose] 81 mg PO DAILY 06/29/18 Atorvastatin Calcium 40 mg PO BEDTIME 06/29/18 Carvedilol [Coreg] 6.25 mg PO BID 06/03/19 Losartan Potassium 25 mg PO BID 06/03/19 Lunesta 2 mg PO BEDTIME 06/03/19 Metoprolol Tartrate 50 mg PO BID 06/03/19 Potassium Chloride Tab [Micro-K] 0 meq PO DAILY 06/03/19 tiZANidine [Zanaflex] 4 mg PO Q8H PRN 06/03/19 Azithromycin IV [Zithromax IV] 500 mg IVPB Q24H vial 06/05/19 Benzonatate Perles [Tessalon Perles] 200 mg PO TID PRN cap 06/05/19 Bifidobacterium Infantis [Align] 4 mg PO BID cap 06/05/19 Linezolid IV [Zyvox IV] 600 mg IVPB Q12H bag 06/05/19 Hydroxyzine HCl [Hydroxyzine Hydrochloride] 10 mg PO Q8HR PRN #14 tab 07/06/19 levoFLOXacin [Levaquin] 500 mg PO DAILY #4 tab 12/31/19 Additional Instructions: The patient is a 69-year-old female presented emergency room secondary to some shortness of breath chest pain from the right side. The patient does have some scarring of the right lower lung field but may also have the start of pneumonia explaining her symptoms there. The patient is going to be placed on 5 days of Levaquin. She has not hypoxic and laboratory work is reassuring. I do want her to follow back up with her primary care doctor in the middle of next week. ER warnings given.
[2019-12-31 15:20] VITALS: BP 158/86; TEMP 98.2; O2SAT 98
== END 2019-12-31 15:01 | disposition home or self-care (01) ==
LOC: ER 12:08
DX: J18.9 Pneumonia, unspecified organism (principal); R06.02 Shortness of breath; I11.0 Hypertensive heart disease with heart failure; I50.9 Heart failure, unspecified; J44.9 Chronic obstructive pulmonary disease, unspecified; E11.9 Type 2 diabetes mellitus without complications; Z95.0 Presence of cardiac pacemaker; I45.10 Unspecified right bundle-branch block; Z79.82 Long term (current) use of aspirin; Z79.899 Other long term (current) drug therapy; Z20.828 Contact with and (suspected) exposure to other viral communicable diseases

== ENCOUNTER → 2020-01-12 | Outpatient (CLI) | payer MEDICARE, OTHER ==
--- NOTE | 2020-01-12 15:11 | RAD ---
EXAM DESCRIPTION: Chest,1 View CLINICAL HISTORY: 69 years Female, COUGH COMPARISON: 12/31/2019 Findings: One view(s)/radiograph(s) Left chest wall pacemaker. Cardiac silhouette and pulmonary vasculature are within normal limits. No pneumothorax. No pleural effusion. Linear and patchy bibasilar airspace disease. No acute osseous abnormality. IMPRESSION: Bibasilar airspace disease; atelectasis or pneumonia. Electronically signed by: Frankie Rivers MD 01/12/2020 3:10 PM CDT
== END ==
LOC: YCFC.O 14:10
PROVIDERS: ATTEND Family Medicine
DX: Z03.818 Encounter for observation for suspected exposure to other biological agents ruled out (principal); R91.8 Other nonspecific abnormal finding of lung field; Z11.59 Encounter for screening for other viral diseases; R50.9 Fever, unspecified; R05 Cough; R52 Pain, unspecified

== ENCOUNTER → 2020-01-27 | Outpatient (CLI) | payer MEDICARE, OTHER | LOC: YCFC.O 14:50 | PROVIDERS: ATTEND Family Medicine | DX: R30.0 Dysuria (principal); L29.3 Anogenital pruritus, unspecified ==

== ENCOUNTER 2020-02-28 17:14 | Emergency (ER) | payer MEDICARE, OTHER ==
--- NOTE | 2020-02-28 17:28 | ED.PDOC ---
History of Present Illness - General Chief Complaint: General Stated Complaint: right sided numbness/pain Time Seen by Provider: 02/28/20 17:26 Source: patient Exam Limitations: no limitations - History of Present Illness Timing/Duration: 1 week Severity: moderate Improving Factors: nothing Worsening Factors: nothing Associated Symptoms: denies symptoms Allergies/Adverse Reactions: Allergies Sulfamethoxazole w/Trimethoprim [From Bactrim] Allergy (Mild, Verified 12/31/19 12:33) CI Pigment Blue 63 [From Cymbalta] Allergy (Verified 12/31/19 12:33) Anaphylaxis Duloxetine [From Cymbalta] Allergy (Verified 12/31/19 12:33) Anaphylaxis Hydralazine Allergy (Verified 12/31/19 12:33) Other Ketorolac Tromethamine [From Toradol] Allergy (Verified 12/31/19 12:33) Hives shortness Metoclopramide [From Reglan] Allergy (Verified 12/31/19 12:33) Penicillin G Allergy (Verified 12/31/19 12:33) Other welps Tramadol Allergy (Verified 12/31/19 12:33) Other Fentanyl Adverse Reaction (Verified 12/31/19 12:33) Other mouth swell Ondansetron [From Zofran] Adverse Reaction (Verified 12/31/19 12:33) Other Pt claims this causes her to "blister" Vancomycin Adverse Reaction (Verified 12/31/19 12:33) Other pt stated if made her deaf Home Medications: Ambulatory Orders Alprazolam [Xanax] 1 mg PO TID PRN 10/07/16 Gabapentin 300 mg PO Q8H 10/07/16 HYDROcodone 10MG/APAP 325MG [[place] 10/325] 1 tab PO Q4H PRN 03/02/18 Nitroglycerin 0.3 mg [Nitrostat] 0.3 mg SL PRN 05/28/18 Pantoprazole Tablet [Protonix] 20 mg PO DAILY 06/06/18 Aspirin [Aspirin Adult Low Dose] 81 mg PO DAILY 06/29/18 Atorvastatin Calcium 40 mg PO BEDTIME 06/29/18 Carvedilol [Coreg] 6.25 mg PO BID 06/03/19 Losartan Potassium 25 mg PO BID 06/03/19 Lunesta 2 mg PO BEDTIME 06/03/19 Metoprolol Tartrate 50 mg PO BID 06/03/19 Potassium Chloride Tab [Micro-K] 0 meq PO DAILY 06/03/19 tiZANidine [Zanaflex] 4 mg PO Q8H PRN 06/03/19 Azithromycin IV [Zithromax IV] 500 mg IVPB Q24H vial 06/05/19 Benzonatate Perles [Tessalon Perles] 200 mg PO TID PRN cap 06/05/19 Bifidobacterium Infantis [Align] 4 mg PO BID cap 06/05/19 Linezolid IV [Zyvox IV] 600 mg IVPB Q12H bag 06/05/19 Hydroxyzine HCl [Hydroxyzine Hydrochloride] 10 mg PO Q8HR PRN #14 tab 07/06/19 levoFLOXacin [Levaquin] 500 mg PO DAILY #4 tab 12/31/19 Review of Systems - Review of Systems Constitutional: Denies: chills, fever EENTM: Denies: eye pain, tearing Respiratory: Denies: cough, short of breath Cardiology: Denies: chest pain, edema, palpitations Gastrointestinal/Abdominal: Denies: abdominal pain, diarrhea, nausea Genitourinary: States: dysuria. Denies: discharge Musculoskeletal: Denies: back pain, gout, joint pain, joint swelling, muscle pain, muscle stiffness Skin: Denies: change in color, lesions Neurological: States: numbness, weakness. Denies: depressed, emotional problems, paresthesia Endocrine: Denies: intolerance to cold, intolerance to heat, unexplained weight gain, unexplained weight loss, other Hematologic/Lymphatic: Denies: anemia, easy bleeding, easy bruising Past Medical History (General) - Patient Medical History Hx Seizures: No Hx Stroke: No Hx Dementia: No Hx Asthma: No Hx of COPD: Yes Hx Cardiac Disorders: Yes Hx Congestive Heart Failure: Yes Hx Pacemaker: Yes Hx Hypertension: Yes Hx Thyroid Disease: No Hx Diabetes: Yes Hx Gastroesophageal Reflux: No Hx Renal Disease: No Hx Cancer: No Hx of HIV: No Hx Hepatitis C: No Hx MRSA: No MRSA Source:: Wound - Vaccination History Hx Tetanus, Diphtheria Vaccination: Yes Hx Influenza Vaccination: Yes Hx Pneumococcal Vaccination: Yes - Social History Hx Tobacco Use: No Hx Chewing Tobacco Use: No Hx Alcohol Use: No Hx Substance Use: No Hx Substance Use Treatment: No Hx Depression: No Hx Physical Abuse: No Hx Emotional Abuse: No Hx Suspected Abuse: No - Female History Patient : No Family Medical History - Family History Father Living Status: Cause of : copd Mother Living Status: Cause of : colon ca Son Name: mother Living Status: Age at (years of age): 54 Cause of : colon cancer Hx Family Asthma: No Hx Family Congestive Heart Failure: No Hx Family Hypertension: Yes Hx Family Stroke: Yes Hx Cardiac Disease: No Hx Family Diabetes: No Hx Family Cancer: Yes Hx Family;Other: Crohn's Physical Exam - Physical Exam General Appearance: Alert, Comfortable Eye Exam: bilateral normal Ears, Nose, Throat: normal ENT inspection, normal pharynx Neck: non-tender, full range of motion Respiratory: chest non-tender, lungs clear, normal breath sounds, no respiratory distress, no accessory muscle use Cardiovascular/Chest: normal peripheral pulses, regular rate, rhythm, no edema, no gallop Gastrointestinal/Abdominal: normal bowel sounds, non tender, soft, no organomegaly Back Exam: normal inspection, no CVA tenderness, no vertebral tenderness Extremity: normal range of motion, non-tender, normal inspection 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 NIH is 0. Patient's work-up is pending when she states that she wants to leave AMA. She states that she was just informed that all the beds in the hospital in [place] are full and she does not see any reason to stay.I attempted to get the patient to stay given her the benefits of getting her results, The risk of leaving AMA including long-term disability and . She denied stating that she is leaving.She is alert and oriented x4 no signs of hallucination at the time of making this decision. She verbalized understanding to all the risk involved - EKG/XRAY/CT EKG: Sinus - Normal sinus rhythm with a heart rate of 74. QRS CT interval within normal limits nonspecific ST segment changes left axis deviation XRAY: chest - EXAM DESCRIPTION: Chest,1 View CLINICAL HISTORY:69 years Female, weakness Comparison: Chest radiograph dated January 12, 2020 FINDINGS: Unchanged left chest pacemaker. No focal lung consolidation. Right lung base atelectasis or scarring. No pleural effusion. No pneumothorax. Cardiomediastinal pauline CT: EXAM DESCRIPTION: Head CLINICAL HISTORY: 69 years Female weakness COMPAR Departure - Departure Clinical Impression: Arm paresthesia, right, Hypokalemia, Hypokalemia due to inadequate potassium intake Disposition: Left Against Medical Advice Departure Forms: ED Discharge - Pt. Copy, Patient Portal Self Enrollment Referrals: JANET GAMEZ IV, CLIN NURSE [Primary Care Provider] - 1-2 Weeks Home Medications: Ambulatory Orders Alprazolam [Xanax] 1 mg PO TID PRN 10/07/16 Gabapentin 300 mg PO Q8H 10/07/16 HYDROcodone 10MG/APAP 325MG [[place] 10/325] 1 tab PO Q4H PRN 03/02/18 Nitroglycerin 0.3 mg [Nitrostat] 0.3 mg SL PRN 05/28/18 Pantoprazole Tablet [Protonix] 20 mg PO DAILY 06/06/18 Aspirin [Aspirin Adult Low Dose] 81 mg PO DAILY 06/29/18 Atorvastatin Calcium 40 mg PO BEDTIME 06/29/18 Carvedilol [Coreg] 6.25 mg PO BID 06/03/19 Losartan Potassium 25 mg PO BID 06/03/19 Lunesta 2 mg PO BEDTIME 06/03/19 Metoprolol Tartrate 50 mg PO BID 06/03/19 Potassium Chloride Tab [Micro-K] 0 meq PO DAILY 06/03/19 tiZANidine [Zanaflex] 4 mg PO Q8H PRN 06/03/19 Azithromycin IV [Zithromax IV] 500 mg IVPB Q24H vial 06/05/19 Benzonatate Perles [Tessalon Perles] 200 mg PO TID PRN cap 06/05/19 Bifidobacterium Infantis [Align] 4 mg PO BID cap 06/05/19 Linezolid IV [Zyvox IV] 600 mg IVPB Q12H bag 06/05/19 Hydroxyzine HCl [Hydroxyzine Hydrochloride] 10 mg PO Q8HR PRN #14 tab 07/06/19 levoFLOXacin [Levaquin] 500 mg PO DAILY #4 tab 12/31/19 Comments: left before results returned
[2020-02-28 17:29] VITALS: TEMP 98
--- NOTE | 2020-02-28 18:57 | RAD ---
EXAM DESCRIPTION: Chest,1 View CLINICAL HISTORY:69 years Female, weakness Comparison: Chest radiograph dated January 12, 2020 FINDINGS: Unchanged left chest pacemaker. No focal lung consolidation. Right lung base atelectasis or scarring. No pleural effusion. No pneumothorax. Cardiomediastinal silhouette is unchanged. No acute osseous abnormality. IMPRESSION: No focal consolidation. Electronically signed by: Armand Gomez DO 02/28/2020 6:55 PM [employer]
--- NOTE | 2020-02-28 18:59 | CT ---
EXAM DESCRIPTION: Head CLINICAL HISTORY: 69 years Female weakness COMPARISON: CT head without contrast dated 09/04/2019 Technique: Contiguous axial images of the brain were obtained without the administration of intravenous contrast.This exam was performed according to our departmental dose-optimization program which includes use of Automated Exposure Control, adjustment of the mA and/or kV according to patient size and/or use of iterative reconstruction technique. DLP: 967 mGy*cm FINDINGS: Brain: No acute intracranial hemorrhage. No extra-axial collection. No mass effect or herniation. Unchanged prominence of the sulci and cisterns. Confluent periventricular and subcortical white matter hypodensity is noted. Vascular calcifications. Ventricles: Prominence of ventricular system. No hydrocephalus. Globes and orbits: No acute abnormality. Bones: No acute osseous finding Paranasal sinuses: Paranasal sinuses are clear. Mastoid air cells: Well pneumatized. Soft tissues: Within normal limits IMPRESSION: No acute intracranial hemorrhage, hydrocephalus or herniation. Cerebral volume loss and chronic small vessel ischemic changes. Consider MRI brain for further evaluation. Electronically signed by: Armand Gomez DO 02/28/2020 6:57 PM [facility]
[2020-02-28 19:06] VITALS: BP 153/80; O2SAT 94
== END 2020-02-28 19:09 | disposition left against medical advice (07) ==
LOC: ER 17:14
DX: R20.2 Paresthesia of skin (principal); E87.6 Hypokalemia; R30.0 Dysuria; R53.1 Weakness; J44.9 Chronic obstructive pulmonary disease, unspecified; I50.9 Heart failure, unspecified; I11.0 Hypertensive heart disease with heart failure; E11.9 Type 2 diabetes mellitus without complications; Z53.29 Procedure and treatment not carried out because of patient's decision for other reasons; Z95.0 Presence of cardiac pacemaker; Z79.82 Long term (current) use of aspirin; Z79.899 Other long term (current) drug therapy; Z88.8 Allergy status to other drugs, medicaments and biological substances; Z88.1 Allergy status to other antibiotic agents; Z88.5 Allergy status to narcotic agent; Z88.0 Allergy status to penicillin; Z88.2 Allergy status to sulfonamides

== ENCOUNTER 2020-05-11 04:59 | Emergency (ER) | payer MEDICARE, OTHER ==
[2020-05-11] MEDS ORDERED: KETOROLAC TROMETHAMINE INJ 30 MG/ML VIAL ONE (05:27)
[2020-05-11] MEDS ORDERED: HYDROcodone 10MG/APAP 325MG 1 EA TAB PO ONE (05:28)
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
--- NOTE | 2020-05-11 06:23 | RAD ---
EXAM: XR Left Hip 2 Views CLINICAL HISTORY: fall TECHNIQUE: AP and frog lateral views of the left hip obtained. COMPARISON: No relevant prior studies available. FINDINGS: Limitations: None. Bones/joints: No abnormality noted. No acute fracture. No subluxation. Soft tissues: No abnormality noted. Vasculature: There is atherosclerosis. Gastrointestinal tract: No abnormality noted. IMPRESSION: No acute findings in the left hip. Electronically signed by: Savana Kahn MD 05/11/2020 6:21 AM [facility]
--- NOTE | 2020-05-11 06:23 | RAD ---
EXAM DESCRIPTION: Sacrum Coccyx, 3 VIEWS CLINICAL HISTORY: 69 years Female, fall COMPARISON: None. FINDINGS/IMPRESSION: No acute fracture and alignment is normal. Electronically signed by: Mitchel Kingsley MD 05/11/2020 6:22 AM [facility]
--- NOTE | 2020-05-11 06:23 | RAD ---
EXAM: XR Right Hip With Pelvis When Performed, 2 or 3 Views CLINICAL HISTORY: The patient is 69 years old and is Female; fall TECHNIQUE: Two or three views of the right hip with pelvis when performed. COMPARISON: No relevant prior studies available. FINDINGS: BONES/JOINTS: The femoral head is well located. The visualized SI joint and pubic symphysis are intact without evidence of diastases. No acute fracture. No dislocation. SOFT TISSUES: Unremarkable. IMPRESSION: No acute findings in the right hip. Electronically signed by: Zee Greco MD 05/11/2020 6:21 AM [facility]
--- NOTE | 2020-05-11 06:25 | RAD ---
EXAM DESCRIPTION: X Ray Lumbar Spine 3 Views; 3 views CLINICAL HISTORY: 69 years Female, fall COMPARISON: CT lumbar spine December 24, 2019. FINDING: Vertebral body heights are preserved without acute fracture. Mild superior endplate deformity at L3, unchanged. Alignment is anatomic without subluxation. Multilevel degenerative changes. IMPRESSION: No acute findings. Electronically signed by: Mitchel Kingsley MD 05/11/2020 6:24 AM [facility]
--- NOTE | 2020-05-11 06:28 | RAD ---
EXAM: Knee,Left 1 or 2 Views Left Knee 2 Views HISTORY: fall COMPARISON: None. TECHNIQUE: Left Knee 2 Views FINDINGS: No dislocation. Left tibial proximal metaphysis transverse fracture. Left fibular head/neck oblique impacted fracture. Diffuse decreased bone density. Lateral compression plate with attached bone screws at proximal left tibia. IMPRESSION: No old exam available for comparison. 1. Left tibial proximal metaphysis transverse recent-appearing fracture. 2. Left fibular head/neck oblique impacted recent-appearing fracture. 3. Proximal left tibial ORIF hardware. Electronically signed by: Leonard Cano MD 05/11/2020 6:27 AM [facility]
--- NOTE | 2020-05-11 06:36 | RAD ---
EXAM: Ankle,Left 3 Views Left Ankle 3 Views HISTORY: fall COMPARISON: None. TECHNIQUE: Left Ankle 3 Views FINDINGS: No acute fracture is grossly seen. There appear to be subacute or chronic fractures of left 3rd-5th metatarsal midshafts. Osteopenia. Moderate-sized enthesophyte at left calcaneal plantar fascia attachment site. Two adjacent screws course through left tibial medial malleolus. No significant soft tissue swelling. IMPRESSION: 1. No acute fracture is grossly seen. 2. There appear to be subacute or chronic fractures of left 3rd-5th metatarsal midshafts. However, dedicated left foot radiographs would be needed for adequate evaluation. 3. Osteopenia. 4. Left tibial medial malleolus ORIF hardware. Electronically signed by: Leonard Cano MD 05/11/2020 6:34 AM [facility]
--- NOTE | 2020-05-11 06:44 | RAD ---
EXAM: Ankle,Right 3 Views Right ankle 3 views 05/11/2020 at 6:11 AM HISTORY: fall COMPARISON: None. TECHNIQUE: Right ankle 3 views FINDINGS: Right tibial medial malleolar inferior aspect old fracture. No dislocation. Right calcaneus oblique acute-appearing fracture seen on lateral view. Right fibular distal-most shaft old healed fracture best seen on lateral view. Oblique-appearing lucency of right talus on oblique view. Possibility of acute nondisplaced fracture cannot be excluded. Diffuse decreased bone density. Small enthesophyte at right calcaneal Achilles tendon attachment site. IMPRESSION: 1. Oblique-appearing lucency of right talus on oblique view. Possibility of acute nondisplaced fracture cannot be excluded. 2. Right tibial medial malleolar inferior aspect old fracture. 3. Right calcaneus oblique acute-appearing fracture. 4. Right fibular distal-most shaft old healed fracture. 5. Osteopenia. CT right ankle without contrast would provide more information. Correlation with old exams would be helpful. Electronically signed by: Leonard Cano MD 05/11/2020 6:42 AM [facility]
--- NOTE | 2020-05-11 06:54 | RAD ---
EXAM: Knee,Right 1 or 2 Views Right knee 2 views HISTORY: fall COMPARISON: Right knee 3 views 07/26/2019 TECHNIQUE: Right knee 2 views FINDINGS: ORIF hardware consisting of lateral compression plate with attached bone screws at proximal right tibia. Right tibial proximal metaphysis healing fracture. Right fibular neck healing fracture. Diffuse decreased bone density. No dislocation. IMPRESSION: 1. ORIF hardware at proximal right tibia. 2. Right tibial proximal metaphysis healing fracture. 3. Right fibular neck healing fracture. 4. Osteopenia. Electronically signed by: Leonard Cano MD 05/11/2020 6:52 AM [facility]
--- NOTE | 2020-05-11 07:30 | CT ---
EXAM: CT Head Without Intravenous Contrast CLINICAL HISTORY: fall TECHNIQUE: Axial computed tomography images of the head/brain without intravenous contrast. Sagittal and coronal reformatted images were created and reviewed. This CT exam was performed using one or more of the following dose reduction techniques: automated exposure control, adjustment of the mA and/or kV according to patient size, and/or use of iterative reconstruction technique. COMPARISON: 02/28/2020 FINDINGS: Limitations: None. Brain: No acute infarct, mass or hemorrhage. No significant white matter disease. No edema. Preserved lee white differentiation. Midline shift: None. Ventricles: No abnormality noted. Bones/joints: No acute fracture or osseous destruction. Soft tissues: Visualized portions appear normal. Vasculature: No acute abnormality noted. Sinuses: No layering fluid in the visualized portions of the paranasal sinuses. Mastoid air cells: No mastoid effusion. Orbits: Visualized portions appear normal. IMPRESSION: No abnormality noted. Electronically signed by: Savana Kahn MD 05/11/2020 7:28 AM [facility]
[2020-05-11 07:57] VITALS: O2SAT 97
[2020-05-11] MEDS ORDERED: SODIUM CHLORIDE 0.9% 500ML 500 ML IVS ONE (08:13)
[2020-05-11] MEDS ORDERED: POTASSIUM CHLORIDE ELIXIR 20 MEQ/15 ML UD PO ONE (08:14)
[2020-05-11] MEDS ORDERED: fentaNYL CITRATE INJ 50 MCG/ML 2 ML AMP IV ONE (08:34)
[2020-05-11 08:54] VITALS: BP 163/73; TEMP 96.9
== END 2020-05-11 08:42 | disposition short-term general hospital (02) ==
LOC: ER 04:59
DX: S82.222A Displaced transverse fracture of shaft of left tibia, initial encounter for closed fracture (principal); S82.432A Displaced oblique fracture of shaft of left fibula, initial encounter for closed fracture; E87.6 Hypokalemia; M54.5 Low back pain; I50.9 Heart failure, unspecified; I11.0 Hypertensive heart disease with heart failure; E11.9 Type 2 diabetes mellitus without complications; J44.9 Chronic obstructive pulmonary disease, unspecified; W06.XXXA Fall from bed, initial encounter; Y92.9 Unspecified place or not applicable; Z95.0 Presence of cardiac pacemaker; Z79.82 Long term (current) use of aspirin; Z88.1 Allergy status to other antibiotic agents; Z88.8 Allergy status to other drugs, medicaments and biological substances; Z88.5 Allergy status to narcotic agent; Z88.0 Allergy status to penicillin; Z88.2 Allergy status to sulfonamides; Z87.81 Personal history of (healed) traumatic fracture
CPT/HCPCS: 36415; 70450; 72100; 72220; 73502; 73560; 73610; 80048; 85025; J3010; J7040